=== PATIENT | female | born 1935 | race Caucasian/White ===

== ENCOUNTER → 2024-07-19 | Outpatient (CLI) | payer MEDICARE, BC, SELFPAY ==
[2024-07-19 13:51] LABS: Alanine Aminotransferase 15 U/L (10-49); Albumin, Serum 4.4 gm/dL (3.4-4.8); Albumin/Globulin Ratio 2.1 (1.2-2.2); Alkaline Phosphatase 123 U/L (46-116); Anion Gap 6 (7-16); Aspartate Amino Transferase 23 U/L (0-34); BUN/Creatinine Ratio 22 Ratio (12-20); Bilirubin,Total 0.7 mg/dL (0.3-1.2); Blood Urea Nitrogen 22 mg/dL (9-23); Calcium 10.2 mg/dL (8.3-10.6); Calcium (Corrected) 10.2 mg/dL (8.5-10.1); Carbon Dioxide 29.9 mMol/L (20.0-31.0); Cardiac Risk Estimate 2.5 RATIO (3.7-5.6); Chloride 101 mMol/L (98-107); Cholesterol 127 mg/dL (132-200); Globulin 2.1 gm/dL (2.3-3.5); Glucose 189 mg/dL (74-106); HDL Cholesterol 50 mg/dL (40-60); LDL Cholesterol,Calculated 58 mg/dL (0-130); Osmolality,Calculated 282 (275-295); Potassium 4.8 mMol/L (3.4-5.1); Sodium 137 mMol/L (136-145); Total Protein 6.5 gm/dL (5.7-8.2); Triglycerides 93 mg/dL (30-150); eGFR 54 See Note
[2024-07-19 14:21] LABS: Glucose Estimated Average 212 mg/dL (80-131)
== END | disposition home or self-care (01) ==
LOC: COPL 12:02
PROVIDERS: PCP Internal Medicine; Referring Provider Internal Medicine; Visit Provider Internal Medicine
DX: I10 Essential (primary) hypertension (principal); E11.65 Type 2 diabetes mellitus with hyperglycemia
CPT/HCPCS: 36415; 80053; 80061; 83036

== ENCOUNTER 2025-01-06 11:04 | Emergency (ER) | payer MEDICARE, SELFPAY ==
[2025-01-06] VITALS (11 sets, daily range): BP systolic 132–190; BP diastolic 81–129; PULSE 87–129; RESP 15–97; TEMP 36.7–38.1; O2SAT 70–100; BMI 21.3
--- NOTE | 2025-01-06 | XR_ITS ---
Examination: MRI of brain without intravenous contrast. MRI brain with intravenous contrast. Date and time of exam:January 06, 2025 1430 hours INDICATIONS: Onset altered mental status today Technique: Multiple axial and sagittal images of the brain to been obtained. Siemens high-resolution 1.52 Alicia short bore scanner utilized. Sagittal sections, T1 weighted images, TR 500, TE 14, are performed. Axial sections proton-density and T2-weighted images have been obtained. Inversion recovery axial images, TR 9260, TE 111, TR 2500. Diffusion weighted images, axial sections, TR 4800, TE 128, B value 1000. Axial sections, ADC map, TR 4800, TE 128. Axial and coronal images were also obtained post 10 cc gadolinium administered intravenously. Findings:: Enlargement of the sella turcica is not present. The optic chiasm and infundibular stalk are not remarkable. There is no localized enlargement of the medulla or ariel. Fourth ventricle and cerebellar tonsils appear normal in position. No subacute area of hemorrhage density is seen. Fourth ventricle is midline. Mass in the cerebellopontine angle region is not evident. 7th and 8th nerve complexes exhibit symmetry Globes are symmetrical Orbital musculature including medial lateral rectus muscles do not exhibit abnormality Increased white matter signal is present in the right frontal lobe, significant edema surrounding a right frontal convexity mass Effacement of the cortical sulcal markings is not identified. Mass effect upon the ventricular system is not identified. Diffusion-weighted images demonstrate no acute infarct Contrast images demonstrate 24 x 26 mm enhancing right frontal meningioma with surrounding edema and mass effect, depression of the anterior frontal horn on the right image 15 Impression: 24 x 26 mm enhancing right frontal convexity meningioma with significant edema and early mass effect
--- NOTE | 2025-01-06 11:21 | EKG_ITS ---
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
--- NOTE | 2025-01-06 11:30 | XR_ITS ---
Examination: CT brain head without contrast. 2-D sagittal coronal reconstructions Date and time of exam:January 06, 2025 1208 hours Comparison September 23, 2023 INDICATIONS: Onset altered mental status today CTDI: vol (mGy):48 DLP: (mGycm):941 Technique: Multiple CT axial sections of the brain have been obtained, 5 mm slice thickness. Contrast has not been administered. 2-D sagittal, coronal reconstructions have been obtained Low dose protocols were performed. One or more of the following dose reduction techniques were used; automated exposure control, adjustment of the mA and/or KV according to patient size, use of iterative reconstruction technique. Findings: Again noted right frontal mass with calcified rim, transverse dimension 27 mm compared to 26 mm on September 23, 2024 There is interval significant mass effect, with edema surrounding this calcified mass and depression of the right frontal horn on axial image 20 at least 7 mm Calcification in the occipital lobes and cerebellar hemispheres Mild ventricular enlargement No acute hemorrhage IMPRESSION: Right frontal lobe convexity mass consistent with meningioma, transverse dimension 27 mm compared to 26 mm September 23, 2024 There is significant edema now surrounding this mass with mass effect as above Recommend brain MRI MRA a tree post contrast follow-up
--- NOTE | 2025-01-06 11:31 | XR_ITS ---
Examination: AP chest single view TECHNIQUE: AP portable supine chest single view INDICATIONS: Sepsis protocol Exam date and time: January 06, 2025 1331 hours FINDINGS: Normal heart size CABG No lobar pneumonia No pulmonary edema IMPRESSION: No pneumonia identified
--- NOTE | 2025-01-06 11:32 | PD.EDAMS ---
Altered Mental Status RME/HPI General Chief Complaint: Altered Mental Status Stated Complaint: AMS Time Seen by Provider: 01/06/25 11:17 Arrival date/time: 01/06/25 11:04 RME / HPI RME / HPI narrative: 89-year-old female patient with significant history of CVA, diabetes mellitus, hypertension [facility] regarding altered mental status. Onset of symptoms about 45 minutes prior to ER visit patient was noted to be alert and oriented x 2. Patient normally is alert and oriented x 3. Patient is being treated for UTI for the last 3 days. On my initial evaluation patient denying any cough denies any chest pain denies any abdominal pain denies any complaints. According to EMS when they arrived in the facility patient was satting 88% on room air currently patient is satting 95% on room air. No medication was given prior to arrival. Patient is full code. Normally patient is GCS 15 currently patient is GCS of 13 Related Data Home Medications ?Medication ?Instructions ?Recorded ?Confirmed clopidogrel 75 mg tablet (Plavix) 75 mg PO QDAY #0 tabs 02/22/17 03/16/24 glyburide 5 mg tablet 10 mg PO BID ##0 02/22/17 03/16/24 saxagliptin 5 mg tablet (Onglyza) 5 mg PO QAM #0 tabs 02/22/17 03/16/24 dulaglutide 0.75 mg/0.5 mL 0.75 mg SQ QWEEK ##0 05/23/17 03/16/24 subcutaneous pen injector (Trulicity) amiloride 5 mg-hydrochlorothiazide 1 tab PO QDAY 05/15/19 03/16/24 50 mg tablet atorvastatin 20 mg tablet 20 mg PO HS 05/15/19 03/16/24 folic acid 400 mcg tablet 400 mcg PO QDAY 09/30/20 03/16/24 metoprolol tartrate 50 mg tablet 25 mg PO BID 10/02/20 03/16/24 tramadol 200 mg tablet,extended 200 - 400 mg PO QDAY PRN Pain 10/02/20 03/16/24 release 24 hr Allergies Allergy/AdvReac Type Severity Reaction Status Date / Time diclofenac Allergy Severe Rash Verified 03/16/24 15:31 promethazine Allergy Severe RASH Verified 03/16/24 15:31 Review of Systems Review of Systems Narrative Review of Systems: Review of system reviewed and within normal limits except mentioned in HPI ED Exam Narrative Physical exam: VITAL SIGNS: Reviewed. GENERAL APPEARANCE: Alert and oriented x 2, does not follows commands, no acute distress, HEAD AND FACE: Non-traumatic. ENT: PERRL, pink conjunctivitis, eyelid no trauma, Mucous membrane moist. NECK: Supple, nontender, no nuchal rigidity. CHEST: No tenderness, no crepitus, no paradoxical movement, no retractions. LUNGS: Clear, well ventilated, symmetric, no rales, no wheezing, no ronchi, no stridor, good breath sounds bilaterally. HEART: Regular rate, regular rhythm, no murmur, no gallops. ABDOMEN: Soft, positive bowel sounds, nondistended, no guarding, nontender, no rebound, no masses, RECTAL: Deferred. GENITAL: Deferred. NEUROLOGICAL: Gross motor function intact sensory function intact, Appropriate for age. MUSCULOSKELETAL: low back nontender, full range of motion. EXTREMITIES: Nontender, full range of motion. SKIN: Color pink, dry, no rash, no lacerations, no abrasions, no contusions. LYMPHATICS: Deferred. Course Quality Measures none Orders Category Date Time Status Bedside COVID-19 Antigen Test NOW Care 01/06/25 11:30 Completed Bedside Influenza A&B Antigen Test NOW Care 01/06/25 11:32 Completed Hvac Estimator STAT Care 01/06/25 11:30 Completed Continuous Pulse Oximetry STAT Care 01/06/25 11:30 Completed EKG (ED ONLY) *Do not use* NOW Care 01/06/25 11:21 Completed EKG (ED ONLY) *Do not use* NOW Care 01/06/25 11:30 Completed Pruett [Urinary Catheter] QS Care 01/06/25 11:51 Completed In and Out Catheter X1PRN Care 01/06/25 11:30 Completed Insert IV NOW Care 01/06/25 11:30 Completed MRI Screening NOW Care 01/06/25 13:14 Completed NPO STAT Care 01/06/25 11:30 Completed Strict Intake and Output Routine Care 01/06/25 11:30 Ordered Referral - Rod Drawer Stat Cons 01/06/25 16:[address] head/brain wo con Stat Exams 01/06/25 11:30 Completed EKG (ED Only) Stat Exams 01/06/25 11:21 Draft EKG (ED Only) Stat Exams 01/06/25 11:30 Ordered MR head/brain wo/w con Stat Exams 01/06/25 Completed XR chest 1V SEPSIS PROTOCOL Stat Exams 01/06/25 11:31 Completed Ammonia Stat Lab 01/06/25 12:08 Completed B-Type Natriuretic Peptide Stat Lab 01/06/25 12:08 Completed Blood Culture (Lab) Stat Lab 01/06/25 12:03 Received CBC Stat Lab 01/06/25 12:08 Completed Comprehensive Metabolic Panel Stat Lab 01/06/25 12:08 Completed LDH (Lactate Dehydrogenase) Stat Lab 01/06/25 12:08 Completed Lactate (Lactic Acid) Stat Lab 01/06/25 12:08 Completed Lipase Stat Lab 01/06/25 12:08 Completed Magnesium Stat Lab 01/06/25 12:08 Completed Partial Thromboplastin Time Stat Lab 01/06/25 13:10 Completed Phosphorous Stat Lab 01/06/25 12:08 Completed Procalcitonin Stat Lab 01/06/25 12:08 Completed Prothrombin Time with INR Stat Lab 01/06/25 13:10 Completed Troponin I Stat Lab 01/06/25 12:08 Completed Urinalysis Stat Lab 01/06/25 11:50 Completed Urine Culture Stat Lab 01/06/25 11:50 Received Dexamethasone Inj [Decadron Inj] Med 01/06/25 16:53 Discontinued 10 mg IV X1 ONE LORazepam [Ativan Inj] Med 01/06/25 14:11 Discontinued 2 mg IVP X1 ONE Labetalol IV [Trandate IV] Med 01/06/25 16:01 Discontinued 10 mg IVP X1 ONE Labetalol IV [Trandate IV] Med 01/06/25 18:07 Discontinued 10 mg IVP X1 ONE Magnesium Sulfate 1 gm Ivpb [Magnesium Sulfate Ivpb] Med 01/06/25 13:15 Discontinued 1 gm in 100 ml IV X1 POTASSIUM CHL 10 mEq IVPB [Kcl Ivpb] Med 01/06/25 13:15 Discontinued 10 meq in 100 ml IV X1 Ringers Lactated 1000 ml [Lactated Ringers] 1,000 ml Med 01/06/25 11:31 Discontinued IV 999 mls/hr cefTRIAXone/D5w 1gm IV premix [Rocephin/D5w 1gm IV Med 01/06/25 11:31 Discontinued premix] 1 gm in 50 ml IV X1 flumazeniL [Romazicon Inj] Med 01/06/25 21:02 Discontinued 0.2 mg IVP X1 ONE flumazeniL [Romazicon Inj] Med 01/06/25 21:21 Discontinued 0.2 mg IVP X1 ONE flumazeniL [Romazicon Inj] Med 01/06/25 21:53 Discontinued 0.2 mg IVP X1 ONE hydrALAZINE INJ [Apresoline Inj] Med 01/06/25 12:15 Discontinued 20 mg IV X1 ONE Oxygen Delivery NOW RT 01/06/25 11:30 Completed Vital Signs Vital signs: Vital Signs Temperature 98.8 F 01/06/25 11:08 Pulse Rate 88 01/06/25 11:08 Respiratory Rate 27 H 01/06/25 11:08 Blood Pressure 156/129 H 01/06/25 11:08 Pulse Oximetry (%) 100 01/06/25 11:08 Oxygen Delivery Method Room Air 01/06/25 11:08 Altered Mental Status MDM Narrative MDM Narrative:: 89-year-old female patient with significant history of CVA, diabetes mellitus, hypertension [facility] status. Onset of symptoms about 45 minutes prior to ER visit patient was noted to be alert and oriented x 2. Patient normally is alert and oriented x 3. Patient is being treated for UTI for the last 3 days. On my initial evaluation patient denying any cough denies any chest pain denies any abdominal pain denies any complaints. According to EMS when they arrived in the facility patient was satting 88% on room air currently patient is satting 95% on room air. No medication was given prior to arrival. Patient is full code Patient's workup today is significant for MRI finding of 24 x 26 mm enhancing right frontal convexity meningioma with significant edema and early mass effect Patient received IV fluids, labetalol IV, hydralazine IV, and depression IV Patient needs to be transfer to higher level of care where there is a neurosurgeon on-call 1640 I was able to talk to neurosurgeon from [facility] , who recommended [facility] for [facility] management of the meningioma. Spoke with transfer center from [facility], and ER MD Dr. Mendoza, who accepted the patient for transfer Prior to transfer patient is protecting her airway. Patient data External records reviewed:: None Clinical information provided by:: patient Social determinants that could affect healthcare access:: none Patient has the following chronic illnesses:: Hypertension diabetes mellitus history of CVA and meningioma How is presenting disease/condition affected by chronic disease/condition?: exacerbated by Evaluation data The following diagnostics were reviewed and interpreted by me:: lab results and radiology exam(s) Lab and/or radiology exams considered but not ordered:: None Interpretation Summary: Patient CBC showed slight leukocytosis of 11.8 potassium 3.1 magnesium 1.5 urinalysis*contaminated Medications / Prescriptions Medications or Prescriptions considered but not ordered:: None Medication administrations:: Medication Administration History Discontinued Medications Dexamethasone Sodium Phosphate (Dexamethasone Sod Phos Inj 10 Mg/Ml Vial) 10 mg IV X1 ONE Stop: 01/06/25 16:54 Last Admin: 01/06/25 17:14 Dose: 10 mg Documented By: BRANDON Flumazenil (Flumazenil Inj 0.1 Mg/Ml Vial 10 Ml) 0.2 mg IVP X1 ONE Stop: 01/06/25 21:03 Last Admin: 01/06/25 21:17 Dose: 0.2 mg Documented By: GIANLUCA Flumazenil (Flumazenil Inj 0.1 Mg/Ml Vial 10 Ml) 0.2 mg IVP X1 ONE Stop: 01/06/25 21:22 Last Admin: 01/06/25 21:24 Dose: 0.2 mg Documented By: GIANLUCA Flumazenil (Flumazenil Inj 0.1 Mg/Ml Vial 10 Ml) 0.2 mg IVP X1 ONE Stop: 01/06/25 21:54 Hydralazine HCl (Hydralazine Inj 20 Mg/Ml Vial) 20 mg IV X1 ONE Stop: 01/06/25 12:16 Last Admin: 01/06/25 12:37 Dose: 20 mg Documented By: ARCELIA Lactated Ringer's (Lactated Ringers) 1,000 mls @ 999 mls/hr IV .Q1H1M ONE Stop: 01/06/25 12:31 Last Infusion: 01/06/25 14:20 Dose: Infused Documented By: Admin: 01/06/25 13:13 Dose: 999 mls/hr Documented By: BRANDON Ceftriaxone Sodium/Dextrose (Rocephin/D5w 1gm Iv Premix) 1 gm in 50 mls @ 100 mls/hr IV X1 ONE Stop: 01/06/25 12:00 Last Infusion: 01/06/25 13:14 Dose: Infused Documented By: Admin: 01/06/25 12:40 Dose: 100 mls/hr Documented By: ARCELIA Magnesium Sulfate/Dextrose (Magnesium Sulfate Ivpb) 1 gm in 100 mls @ 100 mls/hr IV X1 ONE Stop: 01/06/25 14:14 Last Infusion: 01/06/25 17:17 Dose: Infused Documented By: Admin: 01/06/25 16:11 Dose: 100 mls/hr Documented By: CRISSY Potassium Chloride (Kcl Ivpb) 10 meq in 100 mls @ 100 mls/hr IV X1 ONE Stop: 01/06/25 14:14 Last Infusion: 01/06/25 20:30 Dose: Infused Documented By: Admin: 01/06/25 17:22 Dose: 100 mls/hr Documented By: BRANDON Labetalol HCl (Labetalol Inj 5 Mg/Ml Vial 20 Ml) 10 mg IVP X1 ONE Stop: 01/06/25 16:02 Last Admin: 01/06/25 16:06 Dose: 10 mg Documented By: CRISSY Labetalol HCl (Labetalol Inj 5 Mg/Ml Vial 20 Ml) 10 mg IVP X1 ONE Stop: 01/06/25 18:08 Last Admin: 01/06/25 18:11 Dose: 10 mg Documented By: CRISSY Lorazepam (Lorazepam 2 Mg/Ml Vial) 2 mg IVP X1 ONE Stop: 01/06/25 14:12 Last Admin: 01/06/25 14:28 Dose: 2 mg Documented By: BRANDON IV fluids, labetalol IV potassium replacement magnesium replacement lorazepam IV depression IV and hydralazine IV Consultations Consultation(s) initiated? (list below): No Diagnosis Differential diagnosis altered mental status: altered mental status and delirium Most likely diagnosis given after review of the tests above:: Altered mental status, meningioma with edema Admission Indicated Admission indicated?: indicated Admission Request Was there a request for admission?: No Disposition Plan Disposition Plan: Transfer Discharge Plan Plan Patient Disposition: Xfer Acute Care Fac Prescriptions/Referrals Prescriptions/Med Rec: No Action glyburide 5 MG tablet 10 mg PO BID Qty: 0 clopidogrel [Plavix] 75 MG tablet 75 mg PO QDAY Qty: 0 Onglyza 5 MG tablet 5 mg PO QAM Qty: 0 Trulicity 0.75 MG/0.5 ML pen injector 0.75 mg SQ QWEEK Qty: 0 amiloride-hydrochlorothiazide 5-50 mg Tablet 1 tab PO QDAY atorvastatin 20 mg Tablet 20 mg PO HS folic acid 400 mcg Tablet 400 mcg PO QDAY metoprolol tartrate 50 mg Tablet 25 mg PO BID Rx Instructions: half tab po bid. tramadol 200 mg Tablet Extended Release 24 Hr 200 - 400 mg PO QDAY PRN (Reason: Pain) Referrals: Torrie Fish MD [Primary Care Provider] - In 1 week Problem List Clinical Impression: Altered mental status, Meningioma Patient/Caregiver Discharge Instructions Print Language: Dominican Stand Alone Forms: Lainey Award Info., Patient Portal Info Letter
[2025-01-06 11:54] LABS: Collection Type, Urine Clean Catch
[2025-01-06 12:20] LABS: Lactate (Lactic Acid) 1.4 mMol/L (0.4-2.0)
[2025-01-06 12:25] LABS: Bacteria,Urine 4+; Bilirubin,Urine Negative (Negative); Blood,Urine Trace (Negative); Color,Urine Yellow (Lt Yel-Yel); Glucose, Urine 4+ (Negative); Hyaline Casts,Urine < 1 /hpf (0-1); Ketones,Urine Negative (Negative); Leukocyte Esterase,Urine Negative (Negative); Nitrite,Urine Negative (Negative); PH,Urine 6.5 (5.0-7.0); Protein,Urine 2+ (Neg - Trace); RBC,Urine 4 /hpf (0-3); Specific Gravity,Urine 1.014 (1.001-1.035); Squamous Epithelial Cell,Urine 13 /hpf (0-5); Urobilinogen,Urine Negative mg/dL (0.0-1.0); WBC,Urine 6 /hpf (0-5)
[2025-01-06 12:25] LABS: Basophils # (Auto) 0.1 Thou/mm3 (0.0-0.2); Basophils % (Auto) 1 % (0-2.5); Eosinophils # (Auto) 0.2 Thou/mm3 (0.0-0.5); Eosinophils % (Auto) 1 % (0-10); Hematocrit 44.4 % (36.0-46.0); Hemoglobin 15.1 g/dL (12.0-16.0); Immature Granulocytes % (Auto) 0 % (0-0); Immature Granulocytes Auto 0.05 Thou/mm3 (0.00-0.00); Lymphocytes # (Auto) 2.3 Thou/mm3 (1.0-4.8); Lymphocytes % (Auto) 19 % (10-50); Mean Corpuscular Hemoglobin 28.8 pg (25.0-35.0); Mean Corpuscular Volume 85 fL (80-100); Monocytes # (Auto) 1.3 Thou/mm3 (0.0-0.8); Monocytes % (Auto) 11 % (0-12); Neutrophils % (Auto) 68 % (37-80); Nucleated Red Blood Cell % 0 /100 WBC (0); Platelet Count 221 Thou/mm3 (140-440); RDW Standard Deviation 40.9 fL (36.4-46.3); Red Blood Count 5.25 Miln/mm3 (4.00-5.20); White Blood Count 11.8 Thou/mm3 (3.6-11.0)
[2025-01-06] MEDS: hydrALAZINE INJ 20 MG/ML VIAL IV (12:37)
[2025-01-06 12:40] LABS: Clarity,Urine Hazy (Clear/Hazy)
[2025-01-06] MEDS: cefTRIAXone/D5w 1gm IV premix 1 GM/50 ML BAG IV (12:40)
[2025-01-06 12:46] LABS: Ammonia 16 uMol/L (11-32); B-Type Natriuretic Peptide 201 pg/mL (0-100)
[2025-01-06 12:47] LABS: Troponin I < 0.020 ng/mL (0.0-0.045)
[2025-01-06 12:54] LABS: Anion Gap 7 (7-16); BUN/Creatinine Ratio 22 Ratio (12-20); Blood Urea Nitrogen 22 mg/dL (9-23); Carbon Dioxide 33.5 mMol/L (20.0-31.0); Chloride 97 mMol/L (98-107); Estimated Creatinine Clearance 31.5 mL/min (>60); Glucose 350 mg/dL (74-106); Potassium 3.1 mMol/L (3.4-5.1); Sodium 137 mMol/L (136-145); eGFR 54 See Note
[2025-01-06 12:55] LABS: Alanine Aminotransferase 15 U/L (10-49); Albumin, Serum 4.2 gm/dL (3.4-4.8); Albumin/Globulin Ratio 1.7 (1.2-2.2); Alkaline Phosphatase 151 U/L (46-116); Aspartate Amino Transferase 20 U/L (0-34); Bilirubin,Total 0.5 mg/dL (0.3-1.2); Calcium 9.6 mg/dL (8.3-10.6); Calcium (Corrected) 9.6 mg/dL (8.5-10.1); Globulin 2.5 gm/dL (2.3-3.5); LDH (Lactate Dehydrogenase) 208 U/L (120-246); Lipase 38 U/L (12-53); Magnesium 1.5 mg/dL (1.6-2.6); Osmolality,Calculated 291 (275-295); Phosphorous 3.3 mg/dL (2.4-5.1); Procalcitonin 0.05 ng/ml (0.0-0.49); Total Protein 6.7 gm/dL (5.7-8.2)
[2025-01-06] MEDS: RINGERS LACTATED 1000 ML 1,000 ML 999 ML IV (13:13)
[2025-01-06 13:52] LABS: Partial Thromboplastin Time 24.5 Seconds (22.0-36.0); Prothrombin Time 10.9 Seconds (9.0-12.2)
--- NOTE | 2025-01-06 14:11 | PC.NURSE ---
Received verbal order from provider for 2mg Ativan IV for MRI
[2025-01-06] MEDS: LORazepam 2 MG/ML VIAL IVP (14:28)
[2025-01-06] MEDS: LABETALOL INJ 5 MG/ML VIAL 20 ML 10 MG IVP ×2 (16:06→18:11)
[2025-01-06] MEDS: Magnesium Sulfate 1 gm Ivpb 1 GM/100 ML BAG IV (16:11)
--- NOTE | 2025-01-06 16:32 | PC.CM ---
Addendum entered by Columba Hernandez RN 01/06/25 18:56: I took transfer packet with CD to ED charge nurse and gave report. [facility]ilynn declined and [facility] is still reviewing. Addendum entered by Columba Hernandez RN 01/06/25 18:19: 1620 I called and spoke to Krissy at [facility] and she states they are waiting to her from neurology. 1550 I spoke to [facility] and he stats [facility] declined patient stating she needs higher level of care. He stated he did speak to to [facility] transfer nurse and they discussed patient. Transfer nurse told him she would present to their neuro team. Addendum entered by Columba Hernandez RN 01/06/25 17:06: 1645 Saealondra transfer nurse called wanting to speak to NAINA. I forwarded the call to Audrey CHEW. 1630 I received a call back from [facility] and they wanted to speak to Audrey CHEW. I forwarded the call. Original Note: 1606 I received a referral for stat transfer neurology. Audrey CHEW states patient needs neurology. I contacted [facility] and Marilynn and I faxed over information. I will start packet and make a CD.
--- NOTE | 2025-01-06 16:53 | PC.CC ---
Pricilla with [facility] made contact with ASW as this patient is a resident of [facility] and wanted an update. ASW informed her that the patient is pending transfer.
[2025-01-06] MEDS: DEXAMETHASONE SOD PHOS INJ 10 MG/ML VIAL IV (17:14)
[2025-01-06] MEDS: POTASSIUM CHL 10 mEq IVPB 10 MEQ/100 ML BAG 100 MEQ IV (17:22)
--- NOTE | 2025-01-06 20:05 | PC.NURSE ---
Martha CONTACTED RAYMOND VÁSQUEZ AT THIS TIME. [facility] RETURNED CALL FOR MORE CLINICALS FROM MASSIMO CORTEZ AT THIS TIME.
[2025-01-06] MEDS: FLUMAZENIL INJ 0.1 MG/ML VIAL 10 ML 0.2 MG IVP ×2 (21:17→21:24)
--- NOTE | 2025-01-06 21:25 | PC.NURSE ---
pt sleeping apon my arival. Pt was given ativan earlier around 1600. pt has been asleep since. Apon my evaluation, pt around 2109. pt found to be unresponsive to painful stimuli. ED provider informed. Flumazenil ordered and given . pt did respnd to painful stimuli by moaning and grimacing. Provider aware. pt aloud to sleep.
--- NOTE | 2025-01-06 21:35 | PC.NURSE ---
Evaluated pt at around 2057. pt found to be unresponsive to painful stimuli. Provider aware and reversal agent given. .
--- NOTE | 2025-01-06 21:39 | PC.NURSE ---
PT ACCEPTED TO [facility] BY DR BERG. REPORT TO [phone].
--- NOTE | 2025-01-06 22:19 | PC.NURSE ---
after 3rd dose of flumazenil, Dr Daniel evaluated pt . Pt was responsive by startaling and opening eyes when MD spoke loudly to her. Report called to JUAREZ Napoles . Report given to EMS. Pt is being loaded now for transport.
== END 2025-01-06 22:25 | disposition short-term general hospital (02) ==
PROVIDERS: Nurse Practitioner Family; Emergency Provider Emergency Medicine; PCP Internal Medicine
DX: D32.9 Benign neoplasm of meninges, unspecified (principal); Z86.73 Personal history of transient ischemic attack (TIA), and cerebral infarction without residual deficits; E11.9 Type 2 diabetes mellitus without complications; I10 Essential (primary) hypertension; N39.0 Urinary tract infection, site not specified
CPT/HCPCS: 51702; 36415; 70450; 70553; 71045; 80053; 81001; 82140; 83605; 83615; 83690; 83735; 83880; 84100; 84145; 84484; 85025; 85610; 85730; 87040; 87077; 87086; 87186; 87400; 87811; 93005; 96365; 96366; 96367; 96375; 96376; 99285; A9579; J0360; J0696; J1100; J2060; J3475; J3480; J3490; J7120; J1920

== ENCOUNTER 2025-02-07 11:37 | Inpatient (IN) | payer MEDICARE, BC, SELFPAY ==
[2025-02-07] VITALS (9 sets, daily range): BP systolic 158–213; BP diastolic 76–97; PULSE 81–97; RESP 18–97; TEMP 36.8–38.8; O2SAT 94–100; BMI 27.4
--- NOTE | 2025-02-07 11:39 | EKG_ITS ---
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1935 Requested By: ED Temporary Provider Order Number: [id number] Reading MD: ED Temporary Provider Measurements Intervals [place] Rate: 92 P: 66 WA: 198 QRS: -65 QRSD: 118 T: 75 QT: 357 QTc: 444 Interpretive Statements SINUS RHYTHM LEFT AXIS DEVIATION [QRS AXIS < -30] PATTERN CONSISTENT WITH PULMONARY DISEASE LEFT VENTRICULAR HYPERTROPHY AND ST-T CHANGE [VOLTAGE CRITERIA PLUS ST/T ABNORMALITY] POSSIBLE SEPTAL MYOCARDIAL INFARCTION , OF INDETERMINATE AGE [30 ms Q WAVE IN V1/V2] Compared to ECG 01/06/2025 11:22:29 ST (T wave) deviation now present Myocardial infarct finding now present Intraventricular conduction delay no longer present /store/S0/[id number]/[id number]
--- NOTE | 2025-02-07 11:52 | XR_ITS ---
Examination: AP chest single view Technique one AP portable semiupright chest single view Date and time: [place] 04/03/2025 1205 hours Comparison January 06, 2025 INDICATIONS: Sepsis alert today FINDINGS: Normal heart size. CABG. No pneumonia or pulmonary edema Moderate osteopenia IMPRESSION: No pneumonia identified
--- NOTE | 2025-02-07 11:54 | PD.EDADULT ---
ED General RME/HPI General Chief complaint: Altered Mental Status Stated complaint: AMS Time Seen by Provider: 02/07/25 11:51 Arrival date/time: 02/07/25 11:37 CC: Altered mental status HPI patient presents to the ER via EMS who state that in the care facility the patient was reportedly seen last normal at approximately 9 PM last night by family member, EMS report the facility staff stating the patient was altered as early as 6 AM but finally called at approximately 11 AM for transport. 2 daughters have a give me detailed history. The patient was recently discharged from hospital in [place] after an extended stay related to cerebral edema and possible brainstem stroke however she made a complete recovery. Patient is baseline nonambulatory secondary to a fall resulting in a hip fracture in September of this year. Patient is on antiseizure medication secondary to brain swelling. Both daughters state that the patient was completely normal at 8 PM last night which includes conversation and a baseline with no slurred speech mixed words or altered responses to questions. Related Data Home Medications ?Medication ?Instructions ?Recorded ?Confirmed clopidogrel 75 mg tablet (Plavix) 75 mg PO QDAY #0 tabs 02/22/17 03/16/24 glyburide 5 mg tablet 10 mg PO BID ##0 02/22/17 03/16/24 saxagliptin 5 mg tablet (Onglyza) 5 mg PO QAM #0 tabs 02/22/17 03/16/24 dulaglutide 0.75 mg/0.5 mL 0.75 mg SQ QWEEK ##0 05/23/17 03/16/24 subcutaneous pen injector (Trulicity) amiloride 5 mg-hydrochlorothiazide 1 tab PO QDAY 05/15/19 03/16/24 50 mg tablet atorvastatin 20 mg tablet 20 mg PO HS 05/15/19 03/16/24 folic acid 400 mcg tablet 400 mcg PO QDAY 09/30/20 03/16/24 metoprolol tartrate 50 mg tablet 25 mg PO BID 10/02/20 03/16/24 tramadol 200 mg tablet,extended 200 - 400 mg PO QDAY PRN Pain 10/02/20 03/16/24 release 24 hr Allergies Allergy/AdvReac Type Severity Reaction Status Date / Time diclofenac Allergy Severe Rash Verified 03/16/24 15:31 promethazine Allergy Severe RASH Verified 03/16/24 15:31 Review of Systems Review of Systems ROS Unobtainable: unobtainable due to mental status Past Medical History Past Medical History NEUROLOGIC: 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, mini strokes); Negative Neurological Disorders CARDIAC: Positive Cardiac Disorders, Hypercholesterolemia and Hypertension; Negative Congestive Heart Failure RESPIRATORY: Negative Chronic Obstructive Pulmonary Disease (COPD) or Asthma GASTROINTESTINAL: Negative Gastrointestinal Disorders GENITOURINARY: Negative Genitourinary Disorders or Renal Disease REPRODUCTIVE: Negative Pelvic Inflammatory Disease MUSCULOSKELETAL: Negative Musculoskeletal Disorders ENDOCRINE: Positive Diabetes Mellitus Type 2; Negative Endocrine Disorders or Diabetes Mellitus Type 1 HEMATOLOGIC: Negative Sickle Cell Disease OTHER HISTORY: Negative Autoimmune Disease, Anesthesia Reactions, Organ Transplant, MRSA, Clostridium Difficile or Cancer Family History FAMILY HISTORY: Negative Family Cardiac Disorders Surgical History SURGICAL: Positive Coronary Artery Bypass Graft (triple bypass); Negative Endocrine Surgery, Ear Surgery, Abdominal Surgery, Nephrectomy, Joint Replacement, Neurologic Surgery, Mastectomy, Vasectomy or Organ Transplant Social History SMOKING STATUS: Unknown if ever smoked ED Exam Narrative Physical exam: [General: Appears not in any acute distress Head normocephalic HEENT: Eyes opening the lids pupils are PERRLA patient is minimally tracking to noxious stimuli and sound. Mouth is dry no swallow or sounds appreciated. Neck is supple nontender no JVD no edema Chest equal chest rise nontender to palpation Respiratory: Clear to auscultation no wheezes crackles or rubs CV: Rate rhythm is regular no murmurs rubs or clicks Abdomen is flat soft nontender no masses positive bowel sounds all 4 quadrants Back: No gross abnormalities with palpation of the back including the spine, no rashes induration ulceration decubiti Skin: Intact no petechiae rash induration ulceration or crepitus Extremities: Reported nonambulatory, legs deconditioned cap refill less than 2 seconds arms no motion without noxious stimuli and then minimal localization Neuro: Maintaining airway. Course Course Course Narrative: At 1700 and lengthy discussion with daughters at bedside who are adamant that the patient is to remain full code. The patient has had no change in neurologic status, fever continues to decrease. The patient is neurologically unchanged Pruett catheter is draining fluids. Patient's case discussed with Dr. Garcia after administering Decadron. He is in agreement the patient to be transferred for neurologic services back to [facility]. At 1830, patient is unchanged remains obtunded but maintaining her own airway and stable blood pressure. Patient was declined by [facility] secondary to capacity. Now looking for other neuro surgical services. Daughters at bedside were informed. Will repeat labs 1914: It nursing informing the patient is having a mildly brighter affect she is awake and now tracking with her eyes and answering simple questions with appropriate answers. Again had a lengthy discussion with the daughters at bedside who state they want to continue with the neurosurgical transfer. They are not considering a DNR DNI. 1914, CBC shows no significant change no leukocytosis anemia or thrombocytopenia. At 2134 patient's case clinical presentation laboratory results and imaging discussed with Dr. Lopez, neurologist, who agrees to consult on the patient for the altered mental status, she is requesting the patient be admitted for UTI treatment and she will follow for the altered mental status portion of this. Patient's case discussed at [address] Addison, resident for Dr. Cortes Hurd's who agrees to accept the patient for admission. Patient's daughter was notified Dr. Addison assessed the patient and determined the patient may have some left-sided deficits, is requesting a CTA angio before admission. Orders Category Date Time Status Bedside COVID-19 Antigen Test NOW Care 02/07/25 11:51 Active Bedside Influenza A&B Antigen Test NOW Care 02/07/25 11:51 Completed Mill Controller STAT Care 02/07/25 11:51 Active Continuous Pulse Oximetry STAT Care 02/07/25 11:51 Completed EKG (ED ONLY) *Do not use* NOW Care 02/07/25 11:39 Completed Pruett [Urinary Catheter] QS Care 02/07/25 11:40 Active Pruett [Urinary Catheter] QS Care 02/07/25 18:32 Completed Glucose [Bedside Blood Glucose] NOW Care 02/07/25 17:14 Active Insert IV NOW Care 02/07/25 11:51 Completed NPO STAT Care 02/07/25 11:51 Active Strict Intake and Output Routine Care 02/07/25 11:51 Ordered Consult to Neurology / Tele-Neurology Stat Cons 02/07/25 21:34 Active Referral - Roller Stat Cons 02/07/25 15:[address] head/brain wo con Stat Exams 02/07/25 12:07 Completed EKG (ED Only) Stat Exams 02/07/25 11:39 Draft XR chest 1V Stat Exams 02/07/25 11:52 Completed B-Type Natriuretic Peptide Stat Lab 02/07/25 13:15 Completed Blood Culture (Lab) Stat Lab 02/07/25 12:05 Received CBC Stat Lab 02/07/25 13:15 Completed CBC Stat Lab 02/07/25 18:48 Completed CMP [Comprehensive Metabolic Panel] Stat Lab 02/07/25 18:48 Completed Comprehensive Metabolic Panel Stat Lab 02/07/25 13:15 Completed LDH (Lactate Dehydrogenase) Stat Lab 02/07/25 13:15 Completed Lactate (Lactic Acid) Stat Lab 02/07/25 13:15 Completed Lipase Stat Lab 02/07/25 13:15 Completed Magnesium Stat Lab 02/07/25 13:15 Completed Partial Thromboplastin Time Stat Lab 02/07/25 13:15 Completed Phosphorous Stat Lab 02/07/25 13:15 Completed Procalcitonin Stat Lab 02/07/25 13:15 Completed Prothrombin Time with INR Stat Lab 02/07/25 13:15 Completed Troponin I Stat Lab 02/07/25 13:15 Completed Urinalysis Stat Lab 02/07/25 11:59 Completed Urine Culture Stat Lab 02/07/25 11:59 Received Acetaminophen Ivpb [Ofirmev Inj] Med 02/07/25 11:52 Discontinued 1,000 mg in 100 ml IV X1 Dexamethasone Inj [Decadron Inj] Med 02/07/25 15:50 Discontinued 10 mg IV X1 ONE Insulin Regular Med 02/07/25 14:35 Discontinued 5 unit SC X1 ONE Losartan [Cozaar] Med 02/07/25 18:37 Discontinued 25 mg PO X1 ONE Magnesium Sulfate 2 GM Ivpb [Magnesium Sulfate Ivpb] Med 02/07/25 14:34 Discontinued 2 gm in 50 ml IV X1 Ringers Lactated 1000 ml [Lactated Ringers] 1,000 ml Med 02/07/25 11:53 Discontinued IV 999 mls/hr Sodium Chloride 0.9% 1000 ml [Ns] 1,000 ml Med 02/07/25 17:10 Active IV 80 mls/hr cefTRIAXone/D5w 1gm IV premix [Rocephin/D5w 1gm IV Med 02/07/25 13:14 Discontinued premix] 1 gm in 50 ml IV X1 cloNIDine HCL [Catapres] Med 02/07/25 18:37 Discontinued 0.2 mg PO X1 ONE Oxygen Delivery NOW RT 02/07/25 11:51 Active Vital Signs Vital signs: Vital Signs Temperature 102 F H 02/07/25 11:47 Pulse Rate 93 02/07/25 11:47 Respiratory Rate 25 H 02/07/25 11:47 Blood Pressure 213/97 H 02/07/25 11:47 Pulse Oximetry (%) 96 02/07/25 11:47 Oxygen Delivery Method Room Air 02/07/25 11:47 Discharge Plan Prescriptions/Referrals Prescriptions/Med Rec: No Action glyburide 5 MG tablet 10 mg PO BID Qty: 0 clopidogrel [Plavix] 75 MG tablet 75 mg PO QDAY Qty: 0 Onglyza 5 MG tablet 5 mg PO QAM Qty: 0 Trulicity 0.75 MG/0.5 ML pen injector 0.75 mg SQ QWEEK Qty: 0 amiloride-hydrochlorothiazide 5-50 mg Tablet 1 tab PO QDAY atorvastatin 20 mg Tablet 20 mg PO HS folic acid 400 mcg Tablet 400 mcg PO QDAY metoprolol tartrate 50 mg Tablet 25 mg PO BID Rx Instructions: half tab po bid. tramadol 200 mg Tablet Extended Release 24 Hr 200 - 400 mg PO QDAY PRN (Reason: Pain) Referrals: Dionisio Francisco MD [Primary Care Provider] - In 1 week Patient/Caregiver Discharge Instructions Print Language: Georgian MDM Lab Interpretation Lab(s) interpretation(s): CBC shows no leukocytosis no anemia or thrombocytopenia Coags within acceptable ins Sodium 131 potassium 3.4 chloride of 94 CO2 26.2 gap of 11 BUN of 11 creatinine of 0.6 glucose of 338 Lactic of 1.7 Mag of 1.3 Alk phos of 151 no other transaminitis T. bili at 0.5. BNP at 395 Troponin at less than 0.020 Lipase is 29 Procalcitonin at 0.10. Urine is turbid 2+ protein 4+ glucose 1+ blood 43 RBCs 1507 WBC 66 squamous epithelia 4+ bacteria. Imaging Provider imaging interpretation(s): CT of the head shows the patient has a right frontal soft tissue tumor mass that is calcified with a dimension of 27 cm. There is also additional mass effect depressing the right frontal horn currently at 10 mm compared to 7 mm in January 07, 2025. Radiology reports / interpretation(s): Lab results show that is a UTI but no other acute finding that would suggest a cause for the obtunded condition of the patient at this time. I suspect this is all pointing to this mass effect of this hemangioma. A lengthy discussion with the daughters at bedside who are adamant this patient remain a full code. At this time they have decided to have this patient transferred back to [facility]. Reexamined of the patient at 1550 p.m., the patient remains obtunded. Medication Administration(s) Medication Administration History Sodium Chloride (Ns) 1,000 mls @ 80 mls/hr IV .[id number] ORALIA Stop: 03/09/25 17:09 Last Admin: 02/07/25 17:19 Dose: 80 mls/hr Documented By: KENTON Discontinued Medications Clonidine (Clonidine Hcl 0.1 Mg Tablet) 0.2 mg PO X1 ONE Stop: 02/07/25 18:38 Last Admin: 02/07/25 18:43 Dose: Not Given Documented By: TRENT Non-Admin Reason: Cancelled by Provider Dexamethasone Sodium Phosphate (Dexamethasone Sod Phos Inj 10 Mg/Ml Vial) 10 mg IV X1 ONE Stop: 02/07/25 15:51 Last Admin: 02/07/25 15:54 Dose: 10 mg Documented By: KENTON Acetaminophen (Ofirmev Inj) 1,000 mg in 100 mls @ 250 mls/hr IV X1 ONE Stop: 02/07/25 12:15 Last Infusion: 02/07/25 13:20 Dose: Infused Documented By: Admin: 02/07/25 11:58 Dose: 250 mls/hr Documented By: KENTON Lactated Ringer's (Lactated Ringers) 1,000 mls @ 999 mls/hr IV .Q1H1M ONE Stop: 02/07/25 12:53 Last Infusion: 02/07/25 13:32 Dose: Infused Documented By: Admin: 02/07/25 12:00 Dose: 999 mls/hr Documented By: KENTON Ceftriaxone Sodium/Dextrose (Rocephin/D5w 1gm Iv Premix) 1 gm in 50 mls @ 100 mls/hr IV X1 ONE Stop: 02/07/25 13:43 Last Infusion: 02/07/25 14:08 Dose: Infused Documented By: Admin: 02/07/25 13:25 Dose: 100 mls/hr Documented By: TRENT Magnesium Sulfate (Magnesium Sulfate Ivpb) 2 gm in 50 mls @ 25 mls/hr IV X1 ONE Stop: 02/07/25 16:33 Last Infusion: 02/07/25 16:53 Dose: Infused Documented By: Admin: 02/07/25 14:48 Dose: 25 mls/hr Documented By: KENTON Insulin Human Regular (Insulin Hum Regular 1 Unit/0.01 Ml (Per Unit)) 5 unit SC X1 ONE Stop: 02/07/25 14:36 Last Admin: 02/07/25 14:55 Dose: 5 unit Documented By: KENTON Co-signed By: ER Losartan Potassium (Losartan Potassium 25 Mg Tablet) 25 mg PO X1 ONE Stop: 02/07/25 18:38 Last Admin: 02/07/25 18:43 Dose: Not Given Documented By: TRENT Non-Admin Reason: Cancelled by Provider
[2025-02-07] MEDS: ACETAMINOPHEN IVPB 1,000 MG/100 ML VIAL 250 MG IV (11:58)
[2025-02-07] MEDS: RINGERS LACTATED 1000 ML 1,000 ML 999 ML IV (12:00)
[2025-02-07 12:02] LABS: Collection Type, Urine Clean Catch
--- NOTE | 2025-02-07 12:07 | XR_ITS ---
Examination: CT brain head without contrast. 2-D sagittal coronal reconstructions Date and time of exam:February 07, 2025 at 1246 hours Comparison January 06, 2025 INDICATIONS: Onset altered mental status today CTDI: vol (mGy):55.8 DLP: (mGycm):1102 Technique: Multiple CT axial sections of the brain have been obtained, 5 mm slice thickness. Contrast has not been administered. 2-D sagittal, coronal reconstructions have been obtained Low dose protocols were performed. One or more of the following dose reduction techniques were used; automated exposure control, adjustment of the mA and/or KV according to patient size, use of iterative reconstruction technique. Findings: Again noted right frontal soft tissue tumor mass with calcified rim, transverse dimension of this mass 27 mm Frontal edema is again depicted with additional mass effect depressing the frontal horn, currently 10 mm compared to 7 mm on January 06, 2025 No acute hemorrhage Calcifications in both occipital lobes Ventricles are nonenlarged IMPRESSION: Again noted right frontal soft tissue tumor mass with calcified rim, transverse dimension 27 mm Frontal edema is again depicted with additional mass effect depressing the right frontal horn, currently 10 mm compared to 7 mm on January 07, 2025
[2025-02-07 12:49] LABS: Bacteria,Urine 4+; Bilirubin,Urine Negative (Negative); Blood,Urine 1+ (Negative); Color,Urine Yellow (Lt Yel-Yel); Glucose, Urine 4+ (Negative); Ketones,Urine Negative (Negative); Leukocyte Esterase,Urine Positive (Negative); Nitrite,Urine Negative (Negative); PH,Urine 7.5 (5.0-7.0); Protein,Urine 2+ (Neg - Trace); RBC,Urine 43 /hpf (0-3); Specific Gravity,Urine 1.015 (1.001-1.035); Squamous Epithelial Cell,Urine 66 /hpf (0-5); Urobilinogen,Urine Negative mg/dL (0.0-1.0); WBC,Urine 1507 /hpf (0-5)
[2025-02-07 12:50] LABS: Clarity,Urine Turbid (Clear/Hazy)
[2025-02-07 13:22] LABS: Lactate (Lactic Acid) 1.7 mMol/L (0.4-2.0)
[2025-02-07] MEDS: cefTRIAXone/D5w 1gm IV premix 1 GM/50 ML BAG IV (13:25)
[2025-02-07 13:27] LABS: Basophils % (Auto) 1 % (0-2.5); Eosinophils % (Auto) 0 % (0-10); Immature Granulocytes % (Auto) 1 % (0-0); Immature Granulocytes Auto 0.05 Thou/mm3 (0.00-0.00); Lymphocytes % (Auto) 17 % (10-50); Mean Corpuscular HGB Conc 34.3 g/dl (31.0-37.0); Mean Corpuscular Hemoglobin 28.2 pg (25.0-35.0); Mean Corpuscular Volume 82 fL (80-100); Monocytes # (Auto) 0.5 Thou/mm3 (0.0-0.8); Monocytes % (Auto) 8 % (0-12); Neutrophils # (Auto) 4.5 Thou/mm3 (1.8-7.7); Neutrophils % (Auto) 74 % (37-80); Nucleated Red Blood Cell % 0 /100 WBC (0); Platelet Count 285 Thou/mm3 (140-440); RDW Standard Deviation 44.3 fL (36.4-46.3); Red Blood Count 4.25 Miln/mm3 (4.00-5.20)
[2025-02-07 13:42] LABS: INR 1.1 (0.9-1.3); Partial Thromboplastin Time 24.8 Seconds (22.0-36.0); Prothrombin Time 11.7 Seconds (9.0-12.2)
[2025-02-07 13:43] LABS: B-Type Natriuretic Peptide 395 pg/mL (0-100)
[2025-02-07 13:52] LABS: Alanine Aminotransferase 13 U/L (10-49); Albumin, Serum 3.6 gm/dL (3.4-4.8); Albumin/Globulin Ratio 1.5 (1.2-2.2); Alkaline Phosphatase 151 U/L (46-116); Anion Gap 11 (7-16); Aspartate Amino Transferase 17 U/L (0-34); BUN/Creatinine Ratio 18 Ratio (12-20); Bilirubin,Total 0.5 mg/dL (0.3-1.2); Blood Urea Nitrogen 11 mg/dL (9-23); Calcium 9.5 mg/dL (8.3-10.6); Calcium (Corrected) 9.8 mg/dL (8.5-10.1); Carbon Dioxide 26.2 mMol/L (20.0-31.0); Chloride 94 mMol/L (98-107); Creatinine (Component) 0.6 mg/dL (0.6-1.3); Estimated Creatinine Clearance 57.5 mL/min (>60); Globulin 2.4 gm/dL (2.3-3.5); Glucose 338 mg/dL (74-106); Lipase 29 U/L (12-53); Magnesium 1.3 mg/dL (1.6-2.6); Osmolality,Calculated 275 (275-295); Phosphorous 2.6 mg/dL (2.4-5.1); Potassium 3.4 mMol/L (3.4-5.1); Sodium 131 mMol/L (136-145); Troponin I < 0.020 ng/mL (0.0-0.045); eGFR > 60 See Note
[2025-02-07 14:03] LABS: LDH (Lactate Dehydrogenase) 265 U/L (120-246)
[2025-02-07] MEDS: Magnesium Sulfate 2 GM Ivpb 2 GM/50 ML BAG IV (14:48)
[2025-02-07] MEDS: INSULIN HUM REGULAR 1 UNIT/0.01 ML (PER UNIT) 5 UNIT SC (14:55)
[2025-02-07] MEDS: DEXAMETHASONE SOD PHOS INJ 10 MG/ML VIAL IV (15:54)
--- NOTE | 2025-02-07 16:22 | PC.CC ---
1549- Received call from NAINA Webb from ER requesting transfer to [facility] for neurology services per family's request. Patient was recently discharged from [facility]. Call to [facility], spoke with Desirae, transfer center coordinator and provided clinical information. She will present to the transfer center team. Transfer packet created and imaging disc created.
--- NOTE | 2025-02-07 16:39 | PC.NURSE ---
[facility] GALILEO PINTO RN CALLED ASKING FOR AN UPDATE ON PT
[2025-02-07] MEDS: SODIUM CHLORIDE 0.9% 1000 ML 1,000 ML 80 ML IV (17:19)
[2025-02-07 18:56] LABS: Basophils % (Auto) 1 % (0-2.5); Eosinophils % (Auto) 0 % (0-10); Hematocrit 39.4 % (36.0-46.0); Hemoglobin 13.6 g/dL (12.0-16.0); Immature Granulocytes % (Auto) 1 % (0-0); Immature Granulocytes Auto 0.04 Thou/mm3 (0.00-0.00); Lymphocytes # (Auto) 0.9 Thou/mm3 (1.0-4.8); Lymphocytes % (Auto) 18 % (10-50); Mean Corpuscular HGB Conc 34.5 g/dl (31.0-37.0); Mean Corpuscular Hemoglobin 28.1 pg (25.0-35.0); Mean Corpuscular Volume 81 fL (80-100); Monocytes # (Auto) 0.1 Thou/mm3 (0.0-0.8); Monocytes % (Auto) 3 % (0-12); Neutrophils # (Auto) 4.1 Thou/mm3 (1.8-7.7); Neutrophils % (Auto) 78 % (37-80); Nucleated Red Blood Cell % 0 /100 WBC (0); Platelet Count 294 Thou/mm3 (140-440); RDW Standard Deviation 43.7 fL (36.4-46.3); Red Blood Count 4.84 Miln/mm3 (4.00-5.20); White Blood Count 5.2 Thou/mm3 (3.6-11.0)
--- NOTE | 2025-02-07 19:05 | PC.NURSE ---
FELICIA ELDRIDGE @ [phone] AND KUNAL @ [phone] PLEASE CALL WHEN AN ACCEPTING FACILITY IS FOUND.
[2025-02-07 19:17] LABS: Alanine Aminotransferase 13 U/L (10-49); Albumin, Serum 4.1 gm/dL (3.4-4.8); Albumin/Globulin Ratio 1.6 (1.2-2.2); Alkaline Phosphatase 157 U/L (46-116); Anion Gap 11 (7-16); Aspartate Amino Transferase 17 U/L (0-34); BUN/Creatinine Ratio 13 Ratio (12-20); Bilirubin,Total 0.4 mg/dL (0.3-1.2); Blood Urea Nitrogen 9 mg/dL (9-23); Calcium 9.9 mg/dL (8.3-10.6); Calcium (Corrected) 9.9 mg/dL (8.5-10.1); Carbon Dioxide 28.2 mMol/L (20.0-31.0); Chloride 94 mMol/L (98-107); Creatinine (Component) 0.7 mg/dL (0.6-1.3); Estimated Creatinine Clearance 49.3 mL/min (>60); Globulin 2.5 gm/dL (2.3-3.5); Glucose 268 mg/dL (74-106); Osmolality,Calculated 274 (275-295); Potassium 3.5 mMol/L (3.4-5.1); Sodium 133 mMol/L (136-145); Total Protein 6.6 gm/dL (5.7-8.2); eGFR > 60 See Note
--- NOTE | 2025-02-07 21:59 | XR_ITS ---
Examination: CTA carotids with intravenous contrast CTA brain, head with intravenous contrast. 2-D sagittal, coronal reconstructions. 3-D reconstructions. Exam date and time: February 08, 2025 0037 hours INDICATIONS: Onset altered mental status left-sided body weakness beginning yesterday CTDI: vol (mGy) 11 DLP: (mGycm) 400 Technique: Multiple CTA axial brain, head carotid images post intravenous contrast injection 75 cc, [id number]. 2-D sagittal, coronal reconstructions. 3-D reconstructions, 3-D post processing including vascular maximum intensity projection images. Low dose protocols were performed. One or more of the following dose reduction techniques were used; automated exposure control, adjustment of the mA and/or KV according to patient size, use of iterative reconstruction technique. Findings: No significant common carotid carotid bifurcation or internal carotid artery stenoses Mildly dominant right vertebral artery with no critical stenoses No cerebral large vessel arterial occlusions or thrombus 25 mm enhancing right convexity frontal mass noted, please see the CT brain scan report yesterday IMPRESSION: No significant neck arterial stenoses No cerebral large vessel arterial occlusions, thrombus. Enhancing right frontal convexity mass most consistent with meningioma
[2025-02-08] VITALS (77 sets, daily range): BP systolic 100–212; BP diastolic 56–134; PULSE 52–132; RESP 14–96; TEMP 36.4–37.6; O2SAT 92–100
--- NOTE | 2025-02-08 | XR_ITS ---
Examinations: MRI Brain without intravenous contrast. MRA brain without intravenous contrast. MRA carotids without intravenous contrast 3-D vascular reconstructions Date and time of exam: February 08, 2025 1025 hours INDICATIONS: Altered mental status beginning 6:00 AM this morning Technique: Multiple axial and sagittal images of the brain have been obtained MRA brain carotid images without contrast obtained, including 3-D postprocessing, vascular maximum intensity projection images Findings: Sellaturcica is not enlarged. The optic chiasm and infundibular stalk are not remarkable. Prepontine and interpeduncular cisterns are not enlarged. No localized enlargement of the medulla or ariel. Fourth ventricle and cerebellar tonsils normal in position. Subacute hemorrhage is not seen. Fourth ventricle is midline. Mass in the cerebellopontine angle region is not evident. 7th and 8th nerve complexes exhibits symmetry. Globes are symmetrical with no retro-orbital mass. Increased white matter signal evident, extensive edema in the right frontal lobe secondary to right frontal convexity mass, 25 mm Diffusion-weighted images demonstrate no focus of restricted diffusion Mass-effect upon the ventricular system is not identified. MRA carotid images no significant carotid stenoses. MRA brain images no large vessel occlusions Impression: Negative for acute hemorrhage Negative for acute infarct 25 mm right frontal convexity mass with extensive surrounding edema with depression of the right frontal horn secondary to the frontal edema
--- NOTE | 2025-02-08 01:24 | PD.EDADDENDU ---
Emergency Room Addendum Addendum Narrative: I took over the care from Donald Green NP at 11 PM on 02/07/2025, see his notes for complete H&P and ED course. I was asked to review the head/neck CTA report which was negative, I got called by the radiologist. I discussed the case with our hospitalist.? About the presentation and exam and diagnostics and treatments here.? And need of further care in the hospital.? Will accept the patient. Ced Reagan MD
--- NOTE | 2025-02-08 01:26 | PRELIM_ITS ---
CT angiogram of the head and neck with intravenous contrast (axial sections with sagittal and coronal reformats) February 08, 2025 at 0037 hours Clinical History: Left-sided deficits. Comparison: None available at the time of this report. Findings: Head: The internal carotid, middle and anterior cerebral arteries are patent bilaterally. The intracranial vertebral arteries are patent. The vertebrobasilar junction, basilar and posterior cerebral arteries are patent. No evidence of large vessel occlusion, critical stenosis or aneurysm. Right frontal lobe mass measuring 2.5 x 2.5 cm, possibly extra-axial. Right brain hemisphere edema. Neck: The aortic arch to the extent visualized as well as the origins of the right brachiocephalic, left common carotid, and left subclavian arteries are patent. The common carotid arteries, carotid bulbs, and internal and external carotid arteries are patent. The origins of the vertebral arteries are unremarkable. The right vertebral artery is dominant. No evidence of vascular occlusion, critical stenosis, dissection or aneurysm. The soft tissues of the neck are unremarkable. No acute fractures. Sternal wires. Impression: Head: No evidence of large vessel occlusion, critical stenosis or aneurysm. Right frontal lobe mass, possibly extra-axial. Consider correlation with MRI. Right brain hemisphere edema. Neck: No evidence of vascular occlusion, critical stenosis, dissection or aneurysm. Discussion Details: Results verbally communicated to : Dr. Reagan at 01:15 AM 02/08/2025 Report Electronically Signed By: Enmanuel Moy 02/08/2025 1:25:00 AM [EST]
--- NOTE | 2025-02-08 01:50 | PD.RESHP ---
Documentation for date of: 02/08/25 HPI History of Present Illness History of present illness: Limited HPI due to mental status. Spoke to patient's daughter Jennifer over the phone, who contributed to the HPI. 89-year-old female Patient has a past medical history of meningioma, CVA, CABG, hypertension, hyperlipidemia, type 2 diabetes mellitus, Brought in by EMS from rehab facility, for altered mental status. Spoke to patient's daughter Jennifer, who stated that she she had visited the patient last night, at the facility at 8 PM, and the patient was at her baseline mental status, conversational alert and oriented x 3 and able to move her extremities without any weakness. At the time of evaluation, the patient is found to be obtunded, responsive only to pain full stimuli, no movement elicited on the left upper extremity, also free following left upper extremity, per daughter, nursing staff from rehab facility told even at 6 AM patient's mental status had declined. LWK 8 pm. In the ER initial vitals were 213/97, heart rate 93/min, temperature 102F, CBC showed WBC 5.2, hemoglobin 13.6, platelet 24, normal coagulation profile, mild hyponatremia sodium 133, normal renal function, lactic acid 1.7, magnesium 1.3, which was repleted, normal liver function, mild alkaline phosphatase elevation, negative Pro-Blas. Urinalysis showed UTI. The patient was given IV fluid bolus, ceftriaxone, IV magnesium, subcu insulin, and acetaminophen IV. ER provider, initially tried to transfer the patient back to [place], where she was followed for her meningioma and evaluated by neurosurgeon, eventually discharged to rehab facility and deemed poor prognosis, no surgical intervention was advised. But transfer was declined due to capacity. ER provider spoke to neurologist Dr. Lopez, who recommended starting the patient on IV steroids for cerebral edema. Head CT showed frontal edema, with mass effect, depressed and in the frontal horn, 10 mm compared to 7 mm on January 06, 2025. Head CTA was done which was negative for large vessel occlusion. Patient will be admitted to medical floor for for further observation management. Past medical history: History of meningioma?was recently admitted in [place] for neurosurgical evaluation, neurosurgery recommended conservative management due to poor prognosis, history of CABG, history of CVA, history of hyperlipidemia, history of type 2 diabetes mellitus. Social history: N/A Review of Systems Review of Systems ROS Unobtainable: unobtainable due to mental status Past Medical History Past Medical History NEUROLOGIC: Positive Cerebrovascular Accident; Negative Neurological Disorders CARDIAC: Positive Hypercholesterolemia and Hypertension; Negative Cardiac Disorders or Congestive Heart Failure RESPIRATORY: Negative Chronic Obstructive Pulmonary Disease (COPD) or Asthma GASTROINTESTINAL: Negative Gastrointestinal Disorders GENITOURINARY: Negative Genitourinary Disorders or Renal Disease REPRODUCTIVE: Negative Pelvic Inflammatory Disease MUSCULOSKELETAL: Negative Musculoskeletal Disorders ENDOCRINE: Positive Diabetes Mellitus Type 2; Negative Endocrine Disorders or Diabetes Mellitus Type 1 HEMATOLOGIC: Negative Sickle Cell Disease OTHER HISTORY: Negative Autoimmune Disease, Anesthesia Reactions, Organ Transplant, MRSA, Clostridium Difficile or Cancer Family History FAMILY HISTORY: Negative Family Cardiac Disorders Surgical History SURGICAL: Positive Coronary Artery Bypass Graft; Negative Endocrine Surgery, Ear Surgery, Abdominal Surgery, Nephrectomy, Joint Replacement, Neurologic Surgery, Mastectomy, Vasectomy or Organ Transplant Social History SMOKING STATUS: Unknown if ever smoked Exam Vital Signs Temp Pulse Resp BP Pulse Ox O2 Del Method 99.6 F 95 16 174/91 H 95 Room Air 02/08/25 01:02 02/08/25 01:02 02/08/25 01:02 02/08/25 01:02 02/08/25 01:02 02/08/25 01:02 Narrative Exam General: AOx0, obtunded, GCS 11/15, saturating well on room air. Protecting airway. No drooling noted. Skin: Intact, no cyanosis or edema noted. HEENT: Atraumatic/normocephalic, JOAO, neck supple Heart: RRR, S1 and S2 without clicks or murmurs Lungs: Clear on auscultation bilaterally, no difficulty breathing Abdomen: Soft, nontender. Bowel sounds present . Vascular: Peripheral pulses palpable Neuro: Limited neuroexam due to mental status, no response to left upper extremity to noxious stimuli, able to withdraw from pain applied to right upper and lower extremity, left lower extremity. Free following left upper extremity. GCS 11/15. Results: Labs 02/07/25 18:48 02/07/25 18:48 Labs: Short CBC 02/07/25 02/07/25 Range/Units 13:15 18:48 WBC 6.0 5.2 (3.6-11.0) Thou/mm3 Hgb 12.0 13.6 (12.0-16.0) g/dL Hct 35.0 L 39.4 (36.0-46.0) % Plt Count 285 D 294 (140-440) Thou/mm3 BMP 02/07/25 02/07/25 13:15 18:48 Sodium 131 L 133 L Potassium 3.4 3.5 Chloride 94 L 94 L Carbon Dioxide 26.2 28.2 BUN 11 9 Creatinine 0.6 0.7 Glucose 338 H 268 H D Calcium 9.5 9.9 Cardiac Enzymes 02/07/25 Range/Units 13:15 Troponin I < 0.020 (0.0-0.045) ng/mL Liver Function 02/07/25 02/07/25 Range/Units 13:15 18:48 Total Bilirubin 0.5 0.4 (0.3-1.2) mg/dL AST 17 17 (0-34) U/L ALT 13 13 (10-49) U/L Alkaline Phosphatase 151 H 157 H (46-116) U/L Albumin 3.6 4.1 D (3.4-4.8) gm/dL Urine 02/07/25 Range/Units 11:59 Urine Color Yellow (Lt Yel-Yel) Urine Clarity Turbid A (Clear/Hazy) Urine pH 7.5 H (5.0-7.0) Ur Specific [place] 1.015 (1.001-1.035) Urine Protein 2+ A (Neg - Trace) Urine Glucose (UA) 4+ A (Negative) Quality Measures Quality Measures VTE prophylaxis Advance care planning discussed with:: patient Medications Home Medications and Allergies Home Medications ?Medication ?Instructions ?Recorded ?Confirmed ?Type clopidogrel 75 mg tablet (Plavix) 75 mg PO QDAY #0 tabs 02/22/17 02/08/25 History glyburide 5 mg tablet 10 mg PO BID ##0 02/22/17 02/08/25 History dulaglutide 0.75 mg/0.5 mL 0.75 mg SQ QWEEK ##0 05/23/17 02/08/25 History subcutaneous pen injector (Trulicity) amiloride 5 mg-hydrochlorothiazide 1 tab PO QDAY 05/15/19 02/08/25 History 50 mg tablet atorvastatin 20 mg tablet 20 mg PO HS 05/15/19 02/08/25 History folic acid 400 mcg tablet 400 mcg PO QDAY 09/30/20 02/08/25 History metoprolol tartrate 50 mg tablet 25 mg PO BID 10/02/20 02/08/25 History tramadol 200 mg tablet,extended 200 - 400 mg PO QDAY PRN Pain 10/02/20 02/08/25 History release 24 hr Allergies Allergy/AdvReac Type Severity Reaction Status Date / Time diclofenac Allergy Severe Rash Verified 03/16/24 15:31 promethazine Allergy Severe RASH Verified 03/16/24 15:31 Visit Medications Acetaminophen (Acetaminophen 325 Mg Tablet) 650 mg PO Q6H PRN PRN Reason: PAIN OR FEVER > 101 Stop: 03/10/25 01:35 Atorvastatin Calcium (Atorvastatin Calcium 20 Mg Tablet) 40 mg PO HS ORALIA Stop: 03/10/25 20:59 Clopidogrel Bisulfate (Clopidogrel Bisulfate 75 Mg Tablet) 75 mg PO QDAY ORALIA Stop: 03/10/25 08:59 Dexamethasone Sodium Phosphate (Dexamethasone Sod Phos Inj 4 Mg/Ml Vial) 4 mg IVP Q6HR ORALIA; Protocol Stop: 03/10/25 05:59 Dextrose (Dextrose 50%-Water Inj 50 Ml Syringe) 25 ml IV Q15MIN PRN PRN Reason: BG 50-70 responsive npo pt Stop: 03/10/25 01:39 Dextrose (Dextrose 50%-Water Inj 50 Ml Syringe) 50 ml IV Q15MIN PRN PRN Reason: BG <50 OR BG <70 & pt unresponsive Stop: 03/10/25 01:39 Glucagon (Glucagon Inj 1 Mg Vial) 1 mg IM Q15MIN PRN PRN Reason: BG <70, and no IV access Sodium Chloride (Ns) 1,000 mls @ 80 mls/hr IV .[id number] ORALIA Stop: 03/09/25 17:09 Last Admin: 02/07/25 17:19 Dose: 80 mls/hr Ceftriaxone Sodium/Dextrose (Rocephin/D5w 1gm Iv Premix) 1 gm in 50 mls @ 100 mls/hr IV QDAY ORALIA Stop: 02/15/25 08:59 Magnesium Sulfate (Magnesium Sulfate Ivpb) 2 gm in 50 mls @ 25 mls/hr IV X1 ONE Stop: 02/08/25 03:43 Insulin Human Lispro (Insulin Lispro (Admelog) 1 Unit/0.01 Ml Unit) 0 unit SC Q6HR ORALIA; Protocol Stop: 03/10/25 05:59 Labetalol HCl (Labetalol Inj 5 Mg/Ml Vial 20 Ml) 10 mg IVP Q6HR PRN PRN Reason: SBP > 185 Stop: 03/10/25 01:39 Metoprolol Tartrate (Metoprolol Tartrate 25 Mg Tablet) 25 mg PO BID ORALIA Stop: 03/10/25 08:59 Ondansetron HCl (Ondansetron Inj 2 Mg/Ml Inj 2 Ml) 4 mg IV Q6H PRN; Protocol PRN Reason: NAUSEA OR VOMITING Stop: 03/10/25 01:35 Sennosides (Senna Tablet) 2 tab PO BID PRN; Protocol PRN Reason: CONSTIPATION Stop: 03/10/25 01:35 Discontinued Medications Clonidine (Clonidine Hcl 0.1 Mg Tablet) 0.2 mg PO X1 ONE Stop: 02/07/25 18:38 Last Admin: 02/07/25 18:43 Dose: Not Given Dexamethasone Sodium Phosphate (Dexamethasone Sod Phos Inj 10 Mg/Ml Vial) 10 mg IV X1 ONE Stop: 02/07/25 15:51 Last Admin: 02/07/25 15:54 Dose: 10 mg Acetaminophen (Ofirmev Inj) 1,000 mg in 100 mls @ 250 mls/hr IV X1 ONE Stop: 02/07/25 12:15 Last Infusion: 02/07/25 13:20 Dose: Infused Lactated Ringer's (Lactated Ringers) 1,000 mls @ 999 mls/hr IV .Q1H1M ONE Stop: 02/07/25 12:53 Last Infusion: 02/07/25 13:32 Dose: Infused Ceftriaxone Sodium/Dextrose (Rocephin/D5w 1gm Iv Premix) 1 gm in 50 mls @ 100 mls/hr IV X1 ONE Stop: 02/07/25 13:43 Last Infusion: 02/07/25 14:08 Dose: Infused Magnesium Sulfate (Magnesium Sulfate Ivpb) 2 gm in 50 mls @ 25 mls/hr IV X1 ONE Stop: 02/07/25 16:33 Last Infusion: 02/07/25 16:53 Dose: Infused Insulin Human Regular (Insulin Hum Regular 1 Unit/0.01 Ml (Per Unit)) 5 unit SC X1 ONE Stop: 02/07/25 14:36 Last Admin: 02/07/25 14:55 Dose: 5 unit Losartan Potassium (Losartan Potassium 25 Mg Tablet) 25 mg PO X1 ONE Stop: 02/07/25 18:38 Last Admin: 02/07/25 18:43 Dose: Not Given Assessment & Plan Plan 89-year-old female Patient has a past medical history of meningioma, CVA, CABG, hypertension, hyperlipidemia, type 2 diabetes mellitus, Brought in by EMS from rehab facility, for altered mental status. #Acute encephalopathy #Cerebral edema secondary to meningioma #Acute stroke rule out Based on CT report, worsening cerebral edema frontal lobe surrounding the meningioma, frontal edema with mass effect depressing frontal horn,ER provider spoke to neurologist Dr. Lopez, who recommended starting the patient on IV steroids for cerebral edema and admitted the patient for treatment of UTI. Last well-known 8 PM, ordered CT angiogram to rule out LVO, as initial CT head negative for acute hemorrhage. ? Received IV dexamethasone 10 mg x 1 in ER. Scheduled IV dexamethasone 4 mg every 6 hours ? Neurology consult with Dr. Lopez is placed, appreciate recommendations ? Continue clopidogrel 75 mg ? Aspiration precautions, currently n.p.o., speech therapy referral made. ? Consider NG tube for medications and feeding, if patient's mental status continues to decline persistently. ? Continue Levetriacitam 1000mg bid #UTI ?IV ceftriaxone 1 g daily ? Follow urine culture #History of diabetes mellitus ?sliding scale insulin every 6 hourly, Patient is currently n.p.o., ?Elevated blood glucose likely worse due to steroids ?Follow A1c #Hypertensive urgency There was concern for stroke,due to patient's clinical presentation, pending neurology recommendations, ?IV labetalol 10 mg as needed for SBP more than 185 ?Pending med rec reconciliation #History of CVA #History of CABG ? Continue clopidogrel 75 mg daily ? Continue metoprolol ? Continue atorvastatin Plan of care discussed with attending Dr. Mary Styles PGY2 Attending Provider Attestation/Addendum 89-year-old female with history of COPD, coronary artery disease status post CABG, hypertension, diabetes mellitus was admitted because of altered mental status and uncontrolled hypertension. Patient was found to have cerebral edema surrounding frontal meningioma. Patient has been diagnosed with meningioma and was seen in [place] prior to this admission. ER physician attempted transfer to higher level of care. Patient was admitted and will receive IV steroid treatment for brain edema. Dr. Lopez was consulted. Patient will be started on Keppra. IV labetalol ordered for blood pressure control. She also has UTI we will start on IV ceftriaxone. I discussed with and supervised the resident physician who took care of this patient. I agree with the assessment and plan as above. Patient has poor prognosis.
[2025-02-08] MEDS: Magnesium Sulfate 2 GM Ivpb 2 GM/50 ML BAG IV (02:29)
[2025-02-08] MEDS: DEXAMETHASONE SOD PHOS INJ 4 MG/ML VIAL IVP ×3 (05:10→17:58)
[2025-02-08 05:49] LABS: Basophils # (Auto) 0.1 Thou/mm3 (0.0-0.2); Basophils % (Auto) 1 % (0-2.5); Eosinophils % (Auto) 0 % (0-10); Hematocrit 41.2 % (36.0-46.0); Hemoglobin 14.1 g/dL (12.0-16.0); Immature Granulocytes % (Auto) 1 % (0-0); Immature Granulocytes Auto 0.08 Thou/mm3 (0.00-0.00); Lymphocytes # (Auto) 1.3 Thou/mm3 (1.0-4.8); Lymphocytes % (Auto) 17 % (10-50); Mean Corpuscular HGB Conc 34.2 g/dl (31.0-37.0); Mean Corpuscular Hemoglobin 28.1 pg (25.0-35.0); Mean Corpuscular Volume 82 fL (80-100); Monocytes # (Auto) 0.3 Thou/mm3 (0.0-0.8); Monocytes % (Auto) 3 % (0-12); Neutrophils # (Auto) 6.2 Thou/mm3 (1.8-7.7); Neutrophils % (Auto) 79 % (37-80); Nucleated Red Blood Cell % 0 /100 WBC (0); Platelet Count 380 Thou/mm3 (140-440); RDW Standard Deviation 44.5 fL (36.4-46.3); Red Blood Count 5.02 Miln/mm3 (4.00-5.20); White Blood Count 7.9 Thou/mm3 (3.6-11.0)
[2025-02-08 06:11] LABS: Prothrombin Time 11.1 Seconds (9.0-12.2)
[2025-02-08 06:22] LABS: Alanine Aminotransferase 13 U/L (10-49); Albumin, Serum 4.2 gm/dL (3.4-4.8); Alkaline Phosphatase 162 U/L (46-116); Anion Gap 17 (7-16); Aspartate Amino Transferase 16 U/L (0-34); BUN/Creatinine Ratio 24 Ratio (12-20); Bilirubin,Direct 0.2 mg/dL (0.0-0.3); Bilirubin,Total 0.6 mg/dL (0.3-1.2); Blood Urea Nitrogen 17 mg/dL (9-23); Calcium 8.9 mg/dL (8.3-10.6); Chloride 95 mMol/L (98-107); Cholesterol 142 mg/dL (132-200); Creatinine (Component) 0.7 mg/dL (0.6-1.3); Estimated Creatinine Clearance 49.3 mL/min (>60); Glucose 367 mg/dL (74-106); HDL Cholesterol 47 mg/dL (40-60); LDL Cholesterol,Calculated 81 mg/dL (0-130); Osmolality,Calculated 288 (275-295); Phosphorous 3.5 mg/dL (2.4-5.1); Potassium 3.6 mMol/L (3.4-5.1); Sodium 136 mMol/L (136-145); Thyroid Stimulating Hormone 0.66 uIU/mL (0.55-4.78); Total Protein 6.7 gm/dL (5.7-8.2); Triglycerides 71 mg/dL (30-150); eGFR > 60 See Note
--- NOTE | 2025-02-08 07:36 | PC.CC ---
Addendum entered by Hector Allen RN 02/08/25 15:30: 1530 clinicals sent to [facility]. Addendum entered by Hector Allen RN 02/08/25 15:23: 1518 Called [facility], spoke to Sylvia and initiated the transfer. She stated to fax clinicals. Addendum entered by Hector Allen RN 02/08/25 15:11: 1406 called [facility], spoke to and initiated the transfer. Transfer is declined due to capacity. Addendum entered by Hector Allen RN 02/08/25 14:54: 1454 called [facility] to initiate the transfer, left VM. Addendum entered by Hector Allen RN 02/08/25 14:51: [address] Teague and informed the outcome of transfer request with [facility]. Addendum entered by Hector Allen RN 02/08/25 14:45: 1435 received call from Kirill at [facility]. She stated per Dr. Miranda neuro-suregry stated pt doesn't need any surgical intervention at this time. Pt can be followed as outpatient. Recommendations to treat the pt's UTI and diabetes first and start patient on decadron and Kepra. Addendum entered by Hector Allen RN 02/08/25 14:33: 1421 spoke to Zachery at [facility], she want to speak with Dr. Teague, conference call connected. Then she connected her neuro-surgeon Dr. Barakat on the line for peer to peer. He stated to reach out to [facility] since patient had a full work up done there and already evaluated by neuro-surgery already. Dr. Barakat had a detailed conversation with Dr. Teague. Transfer is declined. Addendum entered by Hector Allen RN 02/08/25 13:47: 1342 received call from Romi at [facility]. She wanted to speak with Dr. Teague. Conference call connected. Addendum entered by Hector Allen RN 02/08/25 12:10: 1209 Called [facility], spoke to Zachery and initiated the transfer. Addendum entered by Hector Allen RN 02/08/25 12:08: 1207 called [facility] to initiate the transfer, left VM. Addendum entered by Hector Allen RN 02/08/25 12:07: 1203 Called [facility], spoke to Kirill and initiated the transfer. She stated a nurse will give me a call back. Addendum entered by Hector Allen RN 02/08/25 11:54: 1154 clinicals sent to [facility] and [facility]. Addendum entered by Hector Allen RN 02/08/25 11:49: 1143 received call from Marian at [facility], transfer is declined due to capacity. She stated she can place the pt on wait list and recheck status at 1700. Transfer nurse is aware it's also a HLOC and continuation of care request. Addendum entered by Hector Allen RN 02/08/25 11:17: 1106 received call from Marian at [facility] and gave verbal clinicals. Addendum entered by Hector Allen RN 02/08/25 10:59: 1058 clinicals sent to [facility]. Addendum entered by Hector Allen RN 02/08/25 10:54: 1048 called [facility], spoke to Desirae and initiated the transfer. She stated a nurse will give me a call back for clinicals. Addendum entered by Hector Allen RN 02/08/25 10:43: [address] Teague. He stated per neurology recommendation, the patient requires transfer to [facility] for continuation of care/dx meningioma with mass effect. Original Note: [address] Myers, pt was a transfer in ED and then pt got admitted. Dr. Myers to review the case and call me back if transfer is needed.
[2025-02-08] MEDS: cefTRIAXone/D5w 1gm IV premix 1 GM/50 ML BAG IV (08:12)
[2025-02-08] MEDS: levETIRAcetam INJ 100 MG/ML VIAL 5ML 1000 MG IVP ×2 (08:13→21:28)
--- NOTE | 2025-02-08 11:16 | PC.SS ---
Initial assessment: patient is an 89-year-old female admitted for encephalopathy. Patient out of room and information was obtained by her daughter, Jennifer Gill. Jennifer was identified as the patient's emergency contact. Patient comes from local [facility]. Per daughter, the patient has been there for about two weeks now and was previously at [facility] before being transferred to [facility]. Jennifer informs that the patient requires assistance with ADL's and utilizes a walker to transfer. Patient PCP at the SNF is Dionisio Francisco. Jennifer informs the discharge plan is to return to [facility] when ready, patient will need transportation arranged at the time of discharge. D/c plan: return to [facility] Next of kin: daughterJennifer
--- NOTE | 2025-02-08 11:33 | PC.NURSE ---
Dr. Teague made aware of patients critical blood sugar level of 451. Per Dr. Teague administer insulin per sliding scale and recheck.
[2025-02-08] MEDS: INSULIN LISPRO (AdmeLOG) 1 UNIT/0.01 ML UNIT SC ×4 (11:38→22:15)
[2025-02-08 12:31] LABS: Base Excess, Venous -4 (-3-3); O2 Saturation, Venous 100 % (96-97); PCO2, Venous 26 mmHg (36-56); PO2, Venous 125 mmHg (15-58); pH, Venous 7.46 (7.33-7.66)
[2025-02-08] MEDS: INSULIN HUM REGULAR 1 UNIT/0.01 ML (PER UNIT) 10 UNIT SC (12:33)
[2025-02-08] MEDS: POTASSIUM CHL 10 mEq IVPB 10 MEQ/100 ML BAG 100 MEQ IV ×4 (12:34→17:58)
[2025-02-08 12:39] LABS: Beta Hydroxybutyrate 4.4 mmol/L (<0.6)
[2025-02-08 12:56] LABS: Anion Gap 21 (7-16); BUN/Creatinine Ratio 24 Ratio (12-20); Blood Urea Nitrogen 22 mg/dL (9-23); Calcium 8.6 mg/dL (8.3-10.6); Calcium (Corrected) 8.6 mg/dL (8.5-10.1); Carbon Dioxide 19.5 mMol/L (20.0-31.0); Chloride 94 mMol/L (98-107); Creatinine (Component) 0.9 mg/dL (0.6-1.3); Estimated Creatinine Clearance 38.3 mL/min (>60); Phosphorous 4.7 mg/dL (2.4-5.1); Potassium 3.8 mMol/L (3.4-5.1); Sodium 134 mMol/L (136-145); eGFR > 60 See Note
[2025-02-08 13:04] LABS: Osmolality,Calculated 293 (275-295)
[2025-02-08 13:06] LABS: Glucose 499 mg/dL (74-106)
[2025-02-08] MEDS: SODIUM CHLORIDE 0.9% 500 ML 500 ML 999 ML IV (13:48)
--- NOTE | 2025-02-08 14:02 | PCS.ST ---
Hold swallow evaluation until able to actively participate. Baseline dysphagia noted. ST will monitor for readiness.
--- NOTE | 2025-02-08 14:04 | PD.RESCONSUL ---
HPI Data of Consult Requesting Physician: Yifan Hernandez MD Admitting Provider: Yifan Hernandez MD Attending Provider: Yifan Hernandez MD Primary Care Provider: Dionisio Francisco MD Consult Narrative History of present illness: CC: Altered Mental Status *PMH history collected from patient's daughter, Jennifer, and chart review. Patient is 89-year-old female with a past medical history of meningioma, CVA, CABG, hypertension, hyperlipidemia, type 2 diabetes mellitus, Brought in by EMS from rehab facility, for altered mental status. Spoke to patient's daughter Jennifer, who stated that she she had visited the patient last night, at the facility at 8 PM, and the patient was at her baseline mental status, conversational alert and oriented x 3 and able to move her extremities without any weakness. At the time of evaluation, the patient is found to be obtunded, responsive only to pain full stimuli, no movement elicited on the left upper extremity, also free following left upper extremity, per daughter, nursing staff from rehab facility told even at 6 AM patient's mental status had declined. LWK 8 pm. In the ER initial vitals were 213/97, heart rate 93/min, temperature 102F, CBC showed WBC 5.2, hemoglobin 13.6, platelet 24, normal coagulation profile, mild hyponatremia sodium 133, normal renal function, lactic acid 1.7, magnesium 1.3, which was repleted, normal liver function, mild alkaline phosphatase elevation, negative Pro-Blas. Urinalysis showed UTI. The patient was given IV fluid bolus, ceftriaxone, IV magnesium, subcu insulin, and acetaminophen IV. ER provider, initially tried to transfer the patient back to [place], where she was followed for her meningioma and evaluated by neurosurgeon, eventually discharged to rehab facility and deemed poor prognosis, no surgical intervention was advised. But transfer was declined due to capacity. ER provider spoke to neurologist Dr. Lopez, who recommended starting the patient on IV steroids for cerebral edema. Head CT showed frontal edema, with mass effect, depressed and in the frontal horn, 10 mm compared to 7 mm on January 06, 2025. Head CTA was done which was negative for large vessel occlusion. Patient will be admitted to medical floor for for further observation management. Past medical history: History of meningioma?was recently admitted in [place] for neurosurgical evaluation, neurosurgery recommended conservative management due to poor prognosis, history of CABG, history of CVA, history of hyperlipidemia, history of type 2 diabetes mellitus. Social history: N/A 02/08/2025: ICU team consulted given DKA and acute encephalopathy and soft tissue tumor mass w/ calcified rim and transverse dimension of mass 27 mm producing mass effect with edema noted secondary to UTI. Concern that patient could not protect airway. Recent hospitalized at [facility] in [place] after being transferred directly from the ER for management of meningioma with an accepting neurosurgeon physician. Family at bedside is unsure of definitive diagnosis given at hospital in [place]. Explained overall poor prognosis given meningioma noted on CT and MRI with mass effect from edema. Recommendations are to treat underlying conditions of DKA and UTI. Goals of care discussion with daughters present at bedside, family would like additional time to take home and CODE STATUS. cc:: cc: Yifan Hernandez MD Review of Systems Review of Systems Narrative Review of Systems: limited at patient is altered. General appearance: NO weight change, NO fatigue, NO weakness, NO fever, NO chills, NO night sweats, No cough, Increased confusion (per family) Skin: NO rash, NO itching, NO sores, NO moles HEENT: NO Trauma, NO nausea, NO vomiting, NO visual changes, NO blurry vision, NO double vision, NO tinnitus, NO vertigo, NO ear discharge, NO rhinorrhea, NO stuffiness, NO sneezing, NO allergy, NO epistaxis. NO Hoarseness, NO sore throat, NO swollen neck. Cardiac: NO Palpitations, NO dyspnea on exertion, NO orthopnea, NO paroxysmal nocturnal dyspnea, NO edema Respiratory: NO Shortness of Breath, NO Wheezing, NO Cough, NO Sputum, NO hemoptysis GI:NO appetite, NO nausea, NO vomiting, NO dysphagia, NO changes in bowel frequency, NO stool color, NO diarrhea, NO constipation, NO hemetemesis, NO hemorrhoids, NO melena, NO hematechezia, NO abdominal pain, NO jaundice Renal: NO frequency, NO hesitancy, NO urgency, NO hematuria, NO nocturia, NO incontinence MSK: NO muscle weakness, NO gout, NO arthritis, NO muscle stiffness Neuro: NO headaches, NO tremors, NO weakness, NO paralysis, NO seizures, NO loss of consciousness, NO numbness. Hem: NO anemia, NO easy bruising/bleeding, NO petechiae, NO purpura Endo: NO heat/cold intolerance, NO excessive sweating, NO polyuria, NO polydipsia, NO polyphagia, NO thyroid problems, Yes diabetes Pysch: NO mood, NO anxiety, NO depression Exam Vital Signs Temp Pulse Resp BP Pulse Ox O2 Del Method 97.7 F 110 H 21 H 161/86 H 97 Room Air 02/08/25 12:00 02/08/25 12:00 02/08/25 12:00 02/08/25 12:00 02/08/25 12:02/08/25 12:00 Narrative Exam General Appearance: Alert & Oriented X1, well-nourished [sex] who is lying in bed in no acute distress, no increased work of breathing noted. CABG scar noted on chest. HEENT: Skull symmetrical and atraumatic. Conjunctivae pale pink and moist. Decreased pupillary reaction to light. External ear without lesion or discharge. Oral cavity appearing xerostomia and darking mucosa on left upper palate Cardio: Tachycardia with S1 and S2 heart sounds. No murmurs or extra heart sounds auscultated. No bruits on carotid auscultation. No peripheral edema or cyanosis. Pedal pulses +2 Lungs: Symmetric with decreased expansion. Breath sounds vesicular without crackles, wheezing or rhonchi Abdomen: Non-tender, Non-distended, Hypo-Reactive Bowel Sounds, Neuro: Yes Alert, Yes cooperative, NO oriented to person, No place, and NO time. Speech, not clear. Left Upper motor strength 0/5 and Lower motor strength 3/5. Sensation intact, withdrawls from pain Results Labs 02/09/25 05:40 02/09/25 08:00 Labs: Short CBC 02/07/25 02/08/25 Range/Units 18:48 04:51 WBC 5.2 7.9 D (3.6-11.0) Thou/mm3 Hgb 13.6 14.1 (12.0-16.0) g/dL Hct 39.4 41.2 (36.0-46.0) % Plt Count 294 380 D (140-440) Thou/mm3 BMP 02/07/25 02/08/25 02/08/25 18:48 04:51 12:11 Sodium 133 L 136 134 L Potassium 3.5 3.6 3.8 Chloride 94 L 95 L 94 L Carbon Dioxide 28.2 24.0 19.5 L BUN 9 17 22 Creatinine 0.7 0.7 0.9 Glucose 268 H D 367 H D 499 H* D Calcium 9.9 8.9 8.6 Liver Function 02/07/25 02/08/25 02/08/25 Range/Units 18:48 04:51 12:11 Total Bilirubin 0.4 0.6 (0.3-1.2) mg/dL Direct Bilirubin 0.2 (0.0-0.3) mg/dL AST 17 16 (0-34) U/L ALT 13 13 (10-49) U/L Alkaline Phosphatase 157 H 162 H (46-116) U/L Albumin 4.1 D 4.2 4.0 (3.4-4.8) gm/dL ABG Interpretation ABG results: 02/08/25 12:11 VBG pH 7.46 VBG pCO2 26 L VBG pO2 125 H VBG Base Excess -4 L Quality Measures Quality Measures VTE prophylaxis Advance care planning discussed with:: child Medications Home Medications and Allergies Home Medications ?Medication ?Instructions ?Recorded ?Confirmed ?Type clopidogrel 75 mg tablet (Plavix) 75 mg PO QDAY #0 tabs 02/22/17 02/08/25 History glyburide 5 mg tablet 10 mg PO BID ##0 02/22/17 02/08/25 History dulaglutide 0.75 mg/0.5 mL 0.75 mg SQ QWEEK ##0 05/23/17 02/08/25 History subcutaneous pen injector (Trulicity) amiloride 5 mg-hydrochlorothiazide 1 tab PO QDAY 05/15/19 02/08/25 History 50 mg tablet atorvastatin 20 mg tablet 20 mg PO HS 05/15/19 02/08/25 History folic acid 400 mcg tablet 400 mcg PO QDAY 09/30/20 02/08/25 History metoprolol tartrate 50 mg tablet 25 mg PO BID 10/02/20 02/08/25 History tramadol 200 mg tablet,extended 200 - 400 mg PO QDAY PRN Pain 10/02/20 02/08/25 History release 24 hr Allergies Allergy/AdvReac Type Severity Reaction Status Date / Time diclofenac Allergy Severe Rash Verified 03/16/24 15:31 promethazine Allergy Severe RASH Verified 03/16/24 15:31 Visit Medications Acetaminophen (Acetaminophen 325 Mg Tablet) 650 mg PO Q6H PRN PRN Reason: PAIN OR FEVER > 101 Stop: 03/10/25 01:35 Atorvastatin Calcium (Atorvastatin Calcium 20 Mg Tablet) 40 mg PO HS ORALIA Stop: 03/10/25 20:59 Clopidogrel Bisulfate (Clopidogrel Bisulfate 75 Mg Tablet) 75 mg PO QDAY ORALIA Stop: 03/10/25 08:59 Last Admin: 02/08/25 10:45 Dose: Not Given Dexamethasone Sodium Phosphate (Dexamethasone Sod Phos Inj 4 Mg/Ml Vial) 4 mg IVP Q6HR ORALIA; Protocol Stop: 03/10/25 05:59 Last Admin: 02/08/25 11:22 Dose: 4 mg Dextrose (Dextrose 50%-Water Inj 50 Ml Syringe) 25 ml IV Q15MIN PRN PRN Reason: BG 50-70 responsive npo pt Stop: 03/10/25 01:39 Dextrose (Dextrose 50%-Water Inj 50 Ml Syringe) 50 ml IV Q15MIN PRN PRN Reason: BG <50 OR BG <70 & pt unresponsive Stop: 03/10/25 01:39 Glucagon (Glucagon Inj 1 Mg Vial) 1 mg IM Q15MIN PRN PRN Reason: BG <70, and no IV access Potassium Chloride (Kcl Ivpb) 10 meq in 100 mls @ 100 mls/hr IV Q1H ORALIA Stop: 02/08/25 16:01 Last Admin: 02/08/25 13:30 Dose: 100 mls/hr Sodium Chloride (Ns) 1,000 mls @ 75 mls/hr IV .[id number] ORALIA Stop: 03/10/25 13:10 Piperacillin/Tazobactam/Dextrose (Zosyn) 3.375 gm in 50 mls @ 12.5 mls/hr IV Q8HR ORALIA Stop: 02/15/25 21:59 Piperacillin/Tazobactam/Dextrose (Zosyn) 3.375 gm in 50 mls @ 100 mls/hr IV X1 ONE Stop: 02/08/25 14:29 Insulin Human Lispro (Insulin Lispro (Admelog) 1 Unit/0.01 Ml Unit) 0 unit SC Q6HR ORALIA; Protocol Stop: 03/10/25 05:59 Last Admin: 02/08/25 11:38 Dose: 4 unit Labetalol HCl (Labetalol Inj 5 Mg/Ml Vial 20 Ml) 10 mg IVP Q6HR PRN PRN Reason: SBP > 185 Stop: 03/10/25 01:39 Levetiracetam (Levetiracetam Inj 100 Mg/Ml Vial 5ml) 1,000 mg IVP Q12HR ORALIA Stop: 03/10/25 08:59 Last Admin: 02/08/25 08:13 Dose: 1,000 mg Metoprolol Tartrate (Metoprolol Tartrate 25 Mg Tablet) 25 mg PO BID ORALIA Stop: 03/10/25 08:59 Last Admin: 02/08/25 10:45 Dose: Not Given Ondansetron HCl (Ondansetron Inj 2 Mg/Ml Inj 2 Ml) 4 mg IV Q6H PRN; Protocol PRN Reason: NAUSEA OR VOMITING Stop: 03/10/25 01:35 Sennosides (Senna Tablet) 2 tab PO BID PRN; Protocol PRN Reason: CONSTIPATION Stop: 03/10/25 01:35 Discontinued Medications Clonidine (Clonidine Hcl 0.1 Mg Tablet) 0.2 mg PO X1 ONE Stop: 02/07/25 18:38 Last Admin: 02/07/25 18:43 Dose: Not Given Dexamethasone Sodium Phosphate (Dexamethasone Sod Phos Inj 10 Mg/Ml Vial) 10 mg IV X1 ONE Stop: 02/07/25 15:51 Last Admin: 02/07/25 15:54 Dose: 10 mg Acetaminophen (Ofirmev Inj) 1,000 mg in 100 mls @ 250 mls/hr IV X1 ONE Stop: 02/07/25 12:15 Last Infusion: 02/07/25 13:20 Dose: Infused Lactated Ringer's (Lactated Ringers) 1,000 mls @ 999 mls/hr IV .[id number] ONE Stop: 02/07/25 12:53 Last Infusion: 02/07/25 13:32 Dose: Infused Ceftriaxone Sodium/Dextrose (Rocephin/D5w 1gm Iv Premix) 1 gm in 50 mls @ 100 mls/hr IV X1 ONE Stop: 02/07/25 13:43 Last Infusion: 02/07/25 14:08 Dose: Infused Magnesium Sulfate (Magnesium Sulfate Ivpb) 2 gm in 50 mls @ 25 mls/hr IV X1 ONE Stop: 02/07/25 16:33 Last Infusion: 02/07/25 16:53 Dose: Infused Sodium Chloride (Ns) 1,000 mls @ 80 mls/hr IV .[id number] ORALIA Stop: 03/09/25 17:09 Last Infusion: 02/08/25 04:24 Dose: Infused Ceftriaxone Sodium/Dextrose (Rocephin/D5w 1gm Iv Premix) 1 gm in 50 mls @ 100 mls/hr IV QDAY ORALIA Stop: 02/15/25 08:59 Last Admin: 02/08/25 08:12 Dose: 100 mls/hr Magnesium Sulfate (Magnesium Sulfate Ivpb) 2 gm in 50 mls @ 25 mls/hr IV X1 ONE Stop: 02/08/25 03:43 Last Infusion: 02/08/25 04:58 Dose: Infused Sodium Chloride (Ns) 500 mls @ 999 mls/hr IV .Q31M ONE Stop: 02/08/25 13:40 Last Admin: 02/08/25 13:48 Dose: 999 mls/hr Insulin Human Regular (Insulin Hum Regular 1 Unit/0.01 Ml (Per Unit)) 5 unit SC X1 ONE Stop: 02/07/25 14:36 Last Admin: 02/07/25 14:55 Dose: 5 unit Insulin Human Regular (Insulin Hum Regular 1 Unit/0.01 Ml (Per Unit)) 10 unit IV X1 ONE Stop: 02/08/25 12:03 Insulin Human Regular (Insulin Hum Regular 1 Unit/0.01 Ml (Per Unit)) 10 unit SC X1 ONE Stop: 02/08/25 12:13 Last Admin: 02/08/25 12:33 Dose: 10 unit Losartan Potassium (Losartan Potassium 25 Mg Tablet) 25 mg PO X1 ONE Stop: 02/07/25 18:38 Last Admin: 02/07/25 18:43 Dose: Not Given Assessment & Plan Plan Patient is 89-year-old female with a past medical history of meningioma, CVA, CABG, hypertension, hyperlipidemia, type 2 diabetes mellitus who was admitted on 02/07/2025 for further observation. Central Nervous System: Problem: Acute Encephalopathy, history of CVA DDX: likely secondary to mass producing lesion noted on CT scan with edema. Meninigioma noted on imagining per chart review in 2020. Left upper extremity decrease motor function likely secondary to mass effect on MCA. vs infectious cause from UTI leading to delirium vs DKA Dx: Head CT (02/07/2025): Again noted right frontal soft tissue tumor mass with calcified rim, transverse dimension 27 mm. Frontal edema is again depicted with additional mass effect depressing the right frontal horn, currently 10 mm compared to 7 mm on January 07, 2025. Head/Neck CTA: No significant neck arterial stenoses, No cerebral large vessel arterial occlusions, thrombus, Enhancing right frontal convexity mass most consistent with meningioma. Brain MRI w/ MRA: Negative for acute hemorrhage, Negative for acute infarct, and 25 mm right frontal convexity mass with extensive surrounding edema with depression of the right frontal horn secondary to the frontal edema RX: Dexamethasone 4 mg IVP Q6HR, Clopidogrel 75 mg qday, and Levetiracetam 1000 mg BID RRX: Neuro-surgery second consultation; per neurology recommendations systolic blood pressure 130, Neurology consulted, Dr. Bunn, consulted Cardiovascular: Problem: Hypertension DDX: Past medical CABG and CVA, per chart review TIA first noted in 2020. Dx: EKG Sinus rhythm RX: , Metroplolol 25 mg PO BID, and Labetalol 10 mg IVP RRX: Monitor Blood pressure History CABG and Hyperlipedemia -continue Atorvastatin 40 mg PO HS Respiratory: Problem: Stable DDX: Patient continues to be able to protect airway. Monitor Magdy Coma Scale less than 8. Dx: RX: RRX: Gastroenterology: Problem: Stable DDX: Dx: RX: NG tube recommended. RRX: Renal: Problem: Pseudohyponatremia DDX: Corrected sodium for hyperglycemia, 140 with osmolarity of 293 hyperglycemia. Dx: RX: treat underlying moderate DKA RRX: Heme: Problem: Stable DDX: Dx: RX: RRX: DVT prophylaxis: Compression Device and Lovenox Endo: Problem: DKA, moderate DDX: Moderate DKA likley multi-factorial in the setting of infection from UTI, Dexamethasone, and trauma to the brain from edema noted on MRI and CT. Medical history diabetes mellitus type 2 with home medication that includes Trulicity 0.77 weekly, Glyburide, and lispro (?). Previous A1c (07/19/2024) 9.0. Dx: Blood Glucose on admission 367-->499 (02/08/2025) , Anion gap 21, Beta-hydroxybutyrate 4.4 RX: Normal Bolus X 1, followed by NS 150 cc; Renal Panel Q4 HRs first one to be collected at 6 PM (STAT), A1c, Please do random bedside glucose check at 4 PM Sliding Scale: 150-200: 5 units 201-250: 7 units 251-300: 10 units >300: 12 units RRX: Monitor K and Phosphate; replace as needed. ID: Problem: SIRs DDX: Meeting SIRs criteria at the time of consult with tachycardia, tachypneia, and known source of infection from UTI but not septic as change in vitals likely secondary to acute encephloapthy from meningioma leading to edema Dx: Urinary tract infectio(n as noted on UA with turbid urine, positive Esterase, and WBC 1507; bacteria 4+ Urine Culture: GNR (past medical history of ESBL). Chest x-ray: NO pneumonia and CABG noted. RX: start Zosyn (02/08/2025--) RRX: Stop Ceftriaxone (02/07/2025--02/07/2025) Goals of Care: Overall guarded prognosis given meningioma and edema noted on MRI. Daughters at bedside would like additional time to discuss goals of care with family. Health Maintenance: Disp: Pt is currently admitted to floors for further management of acute encephloapthy, awaiting cultures and DKA; ICU consulted for DKA and acute encephloapthy FEN: NG tube DVT: Compression Device Code: Full Code - The patient's plan was discussed with attending Dr. Kirill Heck MD PGY1 Internal Medicine Attending Provider Attestation/Addendum pt seen and examined with resident, agree with above. In brief this is a 89yo F admitted to the hospital with UTI and meningioma causing compression and edema in the R frontal lobe. Pt was started on decadron and developed mild DKA. ICU was consulted. PT has a waxing and waning mental status and at time of eval she was awake and able to follow commands. She did have some L sided weakness that was notable. oral pharynx is dry with poor dentition, LCTAB, HRRR, no increase in WOB, abd s/nt/bs+, no edema of LE, pulses palp. Initially there was concern for resp failure and need for intubation with a GCS <8 however on eval this had improved. d/w family and they have significant concerns. Case was d/w primary team and recommendations were as follows UTI- change abx to zosyn considering prior Ucx showed ESBL DKA- this is mod and does not require an insulin gtt at this time. would cont with subq insulin and give NS for IVF given her cerebral edema. monitor labs q4hrs with insulin q4 as well. AMS- in the setting of likly undertreated UTI and concurrent DKA. pts cerebral edema from compression 2/2 meningioma is likely a significant contributor. NS recs are for palliative care and no surgical tx recommended. Would touch base with additional NS for 2nd opinion given the family situation. The family appears as if they are reconsidering code status however should her mentation decline prior to change admit to ICU and intubate. case d/w floor team and ICU team extensive and prolonged conversation with family regarding overall condition, meningioma and compression, cerebral edema, UTI, DKA, Sz etc. They would like to have additional discussions with family labs, imaging, records reviewed ~75min required for eval, exam, review, intervention, discussion and formulation of POC for this acutely ill pt at high risk for further and ongoing decompensation
--- NOTE | 2025-02-08 14:21 | XR_ITS ---
Examination: AP chest single view Technique one AP portable upright chest single view Date and time: February 08, 2025 1436 hours INDICATIONS: Post orogastric tube placement. FINDINGS: Orogastric tube sidehole is just beyond the GE junction Normal heart size CABG IMPRESSION: Advance the orogastric tube 4 cm
--- NOTE | 2025-02-08 14:32 | PD.RESCONSUL ---
HPI Data of Consult Requesting Physician: Yifan Hernandez MD Admitting Provider: Yifan Hernandez MD Attending Provider: Yifan Hernandez MD Primary Care Provider: Dionisio Francisco MD Consult Narrative Reason for consult: altered mental status History of present illness: The patient is a 88-year-old female with a previous medical history of hypertension, urogenital cancer status post left kidney, bladder resection, CAD, A-fib on warfarin, status post pacemaker placement who was brought to the ED due to confusion and speech impairment that started approximately on Friday last week. Due to the aphasia most of the history was taken through the conversation with the family and chart review. Initially they attributed the change in the mental status due to being overmedicated. Later on the weekend the family went for a camping trip, but communicating over the phone they noticed the confusion and speech changes that are unusual for the patient. On the baseline she is independent, AAO x 3, ambulates on her own using cane. Her residential driver Dr. Sanders. In the ED initial blood pressure was 182/80, pulse 69, respiratory rate 16, saturating well on [address] head showed large area of edema in the left frontal lobe. Teleneuro was consulted, differential diagnosis includes malignancy and subacute ischemic stroke. MRI was ordered, cardiology cleared patient for the MRI. Head CTA showed stenosis of the right carotid artery 70% and left carotid bifurcation 40%, negative for large vessel occlusion. Echo showed ejection fraction of 40 to 45%. Labs showed WBC count 11.8, hemoglobin 12.5, platelets 422, INR 1.1, sodium 140, potassium 4.5, chloride 105, carbon dioxide 27.6, glucose 104, cholesterol 178, LDL 114, HDL 27. Neurology was consulted for subacute stroke workup. Social history: lives with her family, uses cane for ambulation, independent in ADL. Former smoker, used to smoke 40 years ago, occasionally drinks a glass of wine. 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 Home medications: Furosemide 40 mg, hydrocodone?acetaminophen, irbesartan, pravastatin, spironolactone, warfarin. Surgeries: Knee replacement, hip replacement, pacemaker placement, status post bladder cancer resection, left nephroureterectomy The patient is a 89-year-old female with a previous medical history of right frontal meningioma, CVA, CAD status post CABG, hypertension, hyperlipidemia, type 2 diabetes mellitus who was brought in by ambulance from the [facility] due to altered mentation. History gathering is done through the chart review and talking to the medical personnel. Patient's daughter who visited the patient at 8 PM last night noted patient to be AAO x 3 without weakness. 6 AM she was found to be altered. In the ED head CT showed frontal soft tissue tumor 27 mm in transverse dimension, frontal edema with mass effect depression in the right frontal horn 10 mm compared to 7 mm on January 07, 2025. Head and neck CTA showed enhancing right frontal convexity mass most consistent with meningioma, negative for significant arterial stenosis and large vessel occlusions. Brain MRI showed 25 mm right frontal convexity ED mass with extensive surrounding edema with depression of the right frontal horn secondary to the frontal edema. Initially ED provider plan to transfer patient to the [place]. She was recently admitted in the [place] where she was evaluated by neurosurgeon, no surgical intervention was advised due to the poor prognosis and patient was discharged to the SNF. Transfer was canceled due to the limited capacity. Patient was started on steroids and antiseizure medication. 02/08/25: Patient's blood pressure in the range of 160-170s, tachypneic, tachycardic, afebrile, saturating well on room air. Blood sugar was found to be 499. ICU team was consulted for possible management of DKA in the setting of brain swelling. Neurology was consulted due to altered mental status secondary to intracranial tumor. cc:: cc: Yifan Hernandez MD Review of Systems Review of Systems ROS Unobtainable: unobtainable due to mental status Exam Vital Signs Temp Pulse Resp BP Pulse Ox O2 Del Method 97.7 F 110 H 21 H 161/86 H 97 Room Air 02/08/25 12:02/08/25 12:02/08/25 12:02/08/25 12:02/08/25 12:02/08/25 12:00 Narrative Exam Gen: Well-developed and well-nourished. HEENT: NCAT, PERRLA, EOMI, MMM, anicteric conjunctivae. CVS: normal S1 and S2. RRR. No M/R/G. Resp: CTA B/L. No rhonchi, rales, crackles or wheezing. Tachypneic. Abd: soft, non-tender, non-distended. BS+ in all 4 quadrants. MSK: Good ROM in BUE & BLE. No edema or rash. Neuro: Alert, awake and oriented x0. Cranial nerves: Right gaze deviation, right facial droop. Speech and language: doesnot answer questions. Motor system: Tone and bulk: Decreased tonus on the left side: Strength: does not follow commands, spontaneously moves right arm. Plantar reflex: Downgoing bilaterally. Sensory system: Impossible to assess. Coordination: Not tested Gait: Not tested. No signs of meningeal irritation noted. Psych: impossible to assess. Results Labs 02/09/25 05:40 02/09/25 00:23 Labs: Short CBC 02/07/25 02/08/25 Range/Units 18:48 04:51 WBC 5.2 7.9 D (3.6-11.0) Thou/mm3 Hgb 13.6 14.1 (12.0-16.0) g/dL Hct 39.4 41.2 (36.0-46.0) % Plt Count 294 380 D (140-440) Thou/mm3 BMP 02/07/25 02/08/25 02/08/25 18:48 04:51 12:11 Sodium 133 L 136 134 L Potassium 3.5 3.6 3.8 Chloride 94 L 95 L 94 L Carbon Dioxide 28.2 24.0 19.5 L BUN 9 17 22 Creatinine 0.7 0.7 0.9 Glucose 268 H D 367 H D 499 H* D Calcium 9.9 8.9 8.6 Liver Function 02/07/25 02/08/25 02/08/25 Range/Units 18:48 04:51 12:11 Total Bilirubin 0.4 0.6 (0.3-1.2) mg/dL Direct Bilirubin 0.2 (0.0-0.3) mg/dL AST 17 16 (0-34) U/L ALT 13 13 (10-49) U/L Alkaline Phosphatase 157 H 162 H (46-116) U/L Albumin 4.1 D 4.2 4.0 (3.4-4.8) gm/dL ABG Interpretation ABG results: 02/08/25 12:11 VBG pH 7.46 VBG pCO2 26 L VBG pO2 125 H VBG Base Excess -4 L Quality Measures Quality Measures VTE prophylaxis Advance care planning discussed with:: other Medications Home Medications and Allergies Home Medications ?Medication ?Instructions ?Recorded ?Confirmed ?Type clopidogrel 75 mg tablet (Plavix) 75 mg PO QDAY #0 tabs 02/22/17 02/08/25 History glyburide 5 mg tablet 10 mg PO BID ##0 02/22/17 02/08/25 History dulaglutide 0.75 mg/0.5 mL 0.75 mg SQ QWEEK ##0 05/23/17 02/08/25 History subcutaneous pen injector (Trulicity) amiloride 5 mg-hydrochlorothiazide 1 tab PO QDAY 05/15/19 02/08/25 History 50 mg tablet atorvastatin 20 mg tablet 20 mg PO HS 05/15/19 02/08/25 History folic acid 400 mcg tablet 400 mcg PO QDAY 09/30/20 02/08/25 History metoprolol tartrate 50 mg tablet 25 mg PO BID 10/02/20 02/08/25 History tramadol 200 mg tablet,extended 200 - 400 mg PO QDAY PRN Pain 10/02/20 02/08/25 History release 24 hr Allergies Allergy/AdvReac Type Severity Reaction Status Date / Time diclofenac Allergy Severe Rash Verified 03/16/24 15:31 promethazine Allergy Severe RASH Verified 03/16/24 15:31 Visit Medications Acetaminophen (Acetaminophen 325 Mg Tablet) 650 mg PO Q6H PRN PRN Reason: PAIN OR FEVER > 101 Stop: 03/10/25 01:35 Atorvastatin Calcium (Atorvastatin Calcium 20 Mg Tablet) 40 mg PO HS [facility] Stop: 03/10/25 20:59 Clopidogrel Bisulfate (Clopidogrel Bisulfate 75 Mg Tablet) 75 mg PO QDAY [facility] Stop: 03/10/25 08:59 Last Admin: 02/08/25 10:45 Dose: Not Given Dexamethasone Sodium Phosphate (Dexamethasone Sod Phos Inj 4 Mg/Ml Vial) 4 mg IVP Q6HR [facility]; Protocol Stop: 03/10/25 05:59 Last Admin: 02/08/25 11:22 Dose: 4 mg Dextrose (Dextrose 50%-Water Inj 50 Ml Syringe) 25 ml IV Q15MIN PRN PRN Reason: BG 50-70 responsive npo pt Stop: 03/10/25 01:39 Dextrose (Dextrose 50%-Water Inj 50 Ml Syringe) 50 ml IV Q15MIN PRN PRN Reason: BG <50 OR BG <70 & pt unresponsive Stop: 03/10/25 01:39 Glucagon (Glucagon Inj 1 Mg Vial) 1 mg IM Q15MIN PRN PRN Reason: BG <70, and no IV access Potassium Chloride (Kcl Ivpb) 10 meq in 100 mls @ 100 mls/hr IV Q1H [facility] Stop: 02/08/25 16:01 Last Admin: 02/08/25 13:30 Dose: 100 mls/hr Piperacillin/Tazobactam/Dextrose (Zosyn) 3.375 gm in 50 mls @ 12.5 mls/hr IV Q8HR [facility] Stop: 02/15/25 21:59 Sodium Chloride (Ns) 1,000 mls @ 150 mls/hr IV .Q6H40M [facility] Stop: 03/10/25 14:12 Sodium Chloride (Ns) 500 mls @ 999 mls/hr IV .Q31M ONE Stop: 02/08/25 14:43 Last Admin: 02/08/25 14:28 Dose: Not Given Insulin Human Lispro (Insulin Lispro (Admelog) 1 Unit/0.01 Ml Unit) 0 unit SC Q4H [facility]; Protocol Stop: 03/10/25 14:14 Labetalol HCl (Labetalol Inj 5 Mg/Ml Vial 20 Ml) 10 mg IVP Q6HR PRN PRN Reason: SBP > 185 Stop: 03/10/25 01:39 Levetiracetam (Levetiracetam Inj 100 Mg/Ml Vial 5ml) 1,000 mg IVP Q12HR [facility] Stop: 03/10/25 08:59 Last Admin: 02/08/25 08:13 Dose: 1,000 mg Metoprolol Tartrate (Metoprolol Tartrate 25 Mg Tablet) 25 mg PO BID [facility] Stop: 03/10/25 08:59 Last Admin: 02/08/25 10:45 Dose: Not Given Ondansetron HCl (Ondansetron Inj 2 Mg/Ml Inj 2 Ml) 4 mg IV Q6H PRN; Protocol PRN Reason: NAUSEA OR VOMITING Stop: 03/10/25 01:35 Sennosides (Senna Tablet) 2 tab PO BID PRN; Protocol PRN Reason: CONSTIPATION Stop: 03/10/25 01:35 Discontinued Medications Clonidine (Clonidine Hcl 0.1 Mg Tablet) 0.2 mg PO X1 ONE Stop: 02/07/25 18:38 Last Admin: 02/07/25 18:43 Dose: Not Given Dexamethasone Sodium Phosphate (Dexamethasone Sod Phos Inj 10 Mg/Ml Vial) 10 mg IV X1 ONE Stop: 02/07/25 15:51 Last Admin: 02/07/25 15:54 Dose: 10 mg Acetaminophen (Ofirmev Inj) 1,000 mg in 100 mls @ 250 mls/hr IV X1 ONE Stop: 02/07/25 12:15 Last Infusion: 02/07/25 13:20 Dose: Infused Lactated Ringer's (Lactated Ringers) 1,000 mls @ 999 mls/hr IV .Q1H1M ONE Stop: 02/07/25 12:53 Last Infusion: 02/07/25 13:32 Dose: Infused Ceftriaxone Sodium/Dextrose (Rocephin/D5w 1gm Iv Premix) 1 gm in 50 mls @ 100 mls/hr IV X1 ONE Stop: 02/07/25 13:43 Last Infusion: 02/07/25 14:08 Dose: Infused Magnesium Sulfate (Magnesium Sulfate Ivpb) 2 gm in 50 mls @ 25 mls/hr IV X1 ONE Stop: 02/07/25 16:33 Last Infusion: 02/07/25 16:53 Dose: Infused Sodium Chloride (Ns) 1,000 mls @ 80 mls/hr IV .[id number] [facility] Stop: 03/09/25 17:09 Last Infusion: 02/08/25 04:24 Dose: Infused Ceftriaxone Sodium/Dextrose (Rocephin/D5w 1gm Iv Premix) 1 gm in 50 mls @ 100 mls/hr IV QDAY [facility] Stop: 02/15/25 08:59 Last Admin: 02/08/25 08:12 Dose: 100 mls/hr Magnesium Sulfate (Magnesium Sulfate Ivpb) 2 gm in 50 mls @ 25 mls/hr IV X1 ONE Stop: 02/08/25 03:43 Last Infusion: 02/08/25 04:58 Dose: Infused Sodium Chloride (Ns) 500 mls @ 999 mls/hr IV .Q31M ONE Stop: 02/08/25 13:40 Last Admin: 02/08/25 13:48 Dose: 999 mls/hr Sodium Chloride (Ns) 1,000 mls @ 75 mls/hr IV .[id number] [facility] Stop: 03/10/25 13:10 Piperacillin/Tazobactam/Dextrose (Zosyn) 3.375 gm in 50 mls @ 100 mls/hr IV X1 ONE Stop: 02/08/25 14:29 Insulin Human Lispro (Insulin Lispro (Admelog) 1 Unit/0.01 Ml Unit) 0 unit SC Q6HR [facility]; Protocol Stop: 03/10/25 05:59 Last Admin: 02/08/25 11:38 Dose: 4 unit Insulin Human Regular (Insulin Hum Regular 1 Unit/0.01 Ml (Per Unit)) 5 unit SC X1 ONE Stop: 02/07/25 14:36 Last Admin: 02/07/25 14:55 Dose: 5 unit Insulin Human Regular (Insulin Hum Regular 1 Unit/0.01 Ml (Per Unit)) 10 unit IV X1 ONE Stop: 02/08/25 12:03 Insulin Human Regular (Insulin Hum Regular 1 Unit/0.01 Ml (Per Unit)) 10 unit SC X1 ONE Stop: 02/08/25 12:13 Last Admin: 02/08/25 12:33 Dose: 10 unit Losartan Potassium (Losartan Potassium 25 Mg Tablet) 25 mg PO X1 ONE Stop: 02/07/25 18:38 Last Admin: 02/07/25 18:43 Dose: Not Given Assessment & Plan Plan The patient is a 89-year-old female with a previous medical history of right frontal meningioma, CVA, CAD status post CABG, hypertension, hyperlipidemia, type 2 diabetes mellitus who was brought in by ambulance from the [facility] due to altered mentation. #Acute encephalopathy #Right frontal lobe meningioma #Right frontal lobe edema #Acute stroke ruled out #History of CVA Patient has been following up with Dr. Lopez previously and was admitted in [place], but was not a candidate for surgery. Head CT showed frontal soft tissue tumor 27 mm in transverse dimension, frontal edema with mass effect depression in the right frontal horn 10 mm compared to 7 mm on January 07, 2025. Head and neck CTA showed enhancing right frontal convexity mass most consistent with meningioma, negative for significant arterial stenosis and large vessel occlusions. Brain MRI showed 25 mm right frontal convexity ED mass with extensive surrounding edema with depression of the right frontal horn secondary to the frontal edema. Plan: ? IV dexamethasone 4 mg every 6 hours ? Continue clopidogrel 75 mg ? Aspiration precautions - HOB elevation 30 degrees - ICU team consulted, appreciate recs ? Levetiracitam 1000 mg BID - Blood pressure control, goal 130-140/80, avoid hypotension - patient was not a candidate for transfer due to poor prognosis #UTI #History of diabetes mellitus #Diabetic ketoacidosis #Hypertensive urgency #History CAD, s/p CABG - management per primary team Plan of care discussed with attending Dr. Lopez. Cecilia Parish MD, PGY 1. Attending Provider Attestation/Addendum I personally reviewed the patient's chart and agreed with resident's findings, assessment and plan of care. Will continue with current mgt, follow her closely with the clinical exam and EEG for prognosis. Patient's condition and prognosis was explained in detail to patient's family and they are waiting to make the decision.
[2025-02-08] MEDS: PIPER/TAZO 3.375 GM PREMIX 3.375 GM/50 ML BAG IV ×2 (14:43→21:30)
[2025-02-08] MEDS: SODIUM CHLORIDE 0.9% 1000 ML 1,000 ML 150 ML IV ×2 (14:43→18:57)
--- NOTE | 2025-02-08 15:19 | XR_ITS ---
Examination: AP chest single view TECHNIQUE: Sitting portable AP chest single view Date and time: February 08, 2025 1546 hours Comparison February 08, 2025 INDICATIONS: Post orogastric tube placement FINDINGS: Orogastric tube in stomach satisfactory position Normal heart size CABG Prominent osteopenia IMPRESSION: Orogastric tube in the stomach satisfactory position
[2025-02-08 15:56] LABS: Allen Test Performed/OK; Base Excess 1 (-3-3); HCO3 25 mEq/L (20-26); Inspired Oxygen, FIO2 100 %; O2 Saturation 101 % (91-98); PCO2 39 mmHg (32.0-48.0); PO2 299 mmHg (83-108); Puncture Site Right Radial; pH, Arterial 7.42 (7.35-7.45)
--- NOTE | 2025-02-08 16:04 | PD.RESEVENT ---
Documentation for date of: 02/08/25 Event Note Event Note: Rapid response was called for the patient due to oxygen desaturation to 50%. Patient was put on high flow nasal cannula oxygen. Oxygen improved to 100% on max high flow. We weaned off the patient off oxygen as she was maintaining saturation of 100%. When evaluation patient was noticed to be [place] Coma Scale of 6 unable to protect her airway. Chest x-ray was negative, ABG showed oxygen saturation of 293, normal pH and CO2. Lactic acid was 5.1. We called the family, family came at bedside discussed extensively the options that are available for the patient explained the poor prognosis and her condition. I also spoke with the transfer nurse at [facility] she mentioned that the patient was recently discharged from the hospital and the neurosurgeon Dr. Ruben Wilcox MD Recommended for the patient palliative care due to the poor prognosis. She mentioned that because they are at full capacity she cannot call the neurosurgeon again to give him any updates about the patient at this time. Explained to the family the situation at the continue to keep the patient full code. For that reason patient was admitted upgraded to ICU for intubation and further treatment. - Patient's plan and care discussed with my attending, Dr. Maria Del Carmen Rayo MD Internal Medicine PGY-2
--- NOTE | 2025-02-08 16:05 | PC.SS ---
Rounding note: pending HLOC transfer.
--- NOTE | 2025-02-08 16:14 | PC.NURSE ---
Rapid Response called by manager frenchEunice after observing an acute decrease in patients oxygen saturation on vb net programmer. Patient continues to be on room air and labs and x-ray obtained. No change in patients status.
[2025-02-08 16:17] LABS: Basophils % (Auto) 0 % (0-2.5); Eosinophils % (Auto) 0 % (0-10); Hemoglobin 12.9 g/dL (12.0-16.0); Immature Granulocytes % (Auto) 2 % (0-0); Lymphocytes # (Auto) 0.8 Thou/mm3 (1.0-4.8); Lymphocytes % (Auto) 12 % (10-50); Mean Corpuscular HGB Conc 34.9 g/dl (31.0-37.0); Mean Corpuscular Hemoglobin 28.4 pg (25.0-35.0); Mean Corpuscular Volume 81 fL (80-100); Monocytes # (Auto) 0.5 Thou/mm3 (0.0-0.8); Monocytes % (Auto) 7 % (0-12); Neutrophils # (Auto) 5.5 Thou/mm3 (1.8-7.7); Neutrophils % (Auto) 80 % (37-80); Nucleated Red Blood Cell % 0 /100 WBC (0); Platelet Count 442 Thou/mm3 (140-440); RDW Standard Deviation 44.7 fL (36.4-46.3); Red Blood Count 4.55 Miln/mm3 (4.00-5.20)
[2025-02-08 16:22] LABS: Lactate (Lactic Acid) 5.1 mMol/L (0.4-2.0)
[2025-02-08 16:37] LABS: Anion Gap 17 (7-16); BUN/Creatinine Ratio 23 Ratio (12-20); Blood Urea Nitrogen 23 mg/dL (9-23); Calcium 8.6 mg/dL (8.3-10.6); Carbon Dioxide 21.8 mMol/L (20.0-31.0); Chloride 96 mMol/L (98-107); Estimated Creatinine Clearance 34.5 mL/min (>60); Osmolality,Calculated 292 (275-295); Sodium 135 mMol/L (136-145); eGFR 54 See Note
[2025-02-08 16:38] LABS: Glucose 446 mg/dL (74-106)
[2025-02-08 16:42] LABS: White Blood Count 8.5 Thou/mm3 (3.6-11.0)
[2025-02-08] MEDS: ETOMIDATE INJ 2 MG/ML VIAL 10 ML 20 MG IVP (17:32)
[2025-02-08] MEDS: ROCURONIUM INJ 10 MG/ML VIAL 10 ML 40 MG IVP (17:33)
--- NOTE | 2025-02-08 17:35 | XR_ITS ---
Examination: AP chest single view TECHNIQUE: AP portable semiupright chest single view Date and time: February 08, 2025 at 1751 hours Comparison February 08, 2025 1546 hours INDICATIONS: Hypoxic respiratory failure postintubation FINDINGS: Endotracheal tube tip 36 mm above the dariusz Orogastric tube in the stomach. Normal heart size CABG No aspiration pneumonia or pulmonary edema IMPRESSION: Endotracheal tube tip 3.6 cm above Dariusz
[2025-02-08] MEDS: MIDAZOLAM INJ 1 MG/ML VIAL 2 ML 2 MG IVP (17:39)
--- NOTE | 2025-02-08 17:46 | PD.RESPROC ---
Procedures Procedure Date / Time 02/08/25 1586 Intubation Indication(s): inability to protect airway Informed consent obtained: obtained from surrogate decision maker Time out done, and the following verified: correct patient, side and site, procedure, patient position and implants and/or equipment Sedative: etomidate Mg given: 20 Paralytic: rocuronium Mg given: 40 Laryngoscope: fiber optic video scope ET tube size: 7.5 ET tube uncuffed: No Tube secured depth (cm): 24 Tube secured location: teeth Tube placement confirmation: visualized tube passing through cords, equal breath sounds bilaterally, no breath sounds over epigastrium and confirmation by capnometry Patient tolerated procedure: well and no complications EBL(ml): 0 Additional comments: Mallampati Score I Cormack Lehane Grade I Endotracheal tube was easily passed on first attempt. Procedure discussed with my attending, Dr. Roy, and done under the supervision of ER Physician Dr. Membreno. Maricruz Delaney MD PGY-3
[2025-02-08] MEDS: fentaNYL 2,500 MCG/250 ML BAG 2,500 MCG/250 ML BAG IV (17:51)
[2025-02-08] MEDS: PROPOFOL 1,000 MG IVPB 1,000 MG/100 ML VIAL 2.041 MG IV (18:24)
[2025-02-08 18:27] LABS: Base Excess 1 (-3-3); HCO3 27 mEq/L (20-26); Inspired Oxygen, FIO2 100 %; O2 Saturation 101 % (91-98); PCO2 50 mmHg (32.0-48.0); PO2 500 mmHg (83-108); pH, Arterial 7.35 (7.35-7.45)
[2025-02-08 18:28] LABS: Allen Test Performed/OK; Puncture Site Left Radial
--- NOTE | 2025-02-08 18:29 | PC.NURSE ---
Pt. had a BP of 205/116 MD ordered for fentanyl to be increased and propofol to be started. Orders carried out.
[2025-02-08] MEDS: fentaNYL 2,500 MCG/250 ML BAG 2,500 MCG/250 ML BAG 7.5 MCG IV (18:47)
[2025-02-08 18:54] LABS: Lactate (Lactic Acid) 3.6 mMol/L (0.4-2.0)
--- NOTE | 2025-02-08 18:59 | PD.RESEVENT ---
Documentation for date of: 02/08/25 Event Note Event Note: Event note: Patient upgraded from floors to ICU for mechanical ventilation as patient was unable to protect airway with a GCS score of 7. Patient was started on mechanical ventilation with a tidal volume of 320 flow rate of 40 respiratory rate of 16, PEEP of 5 and FiO2 of 100. Given repeat ABG showing a pH of 7. 35, CO2 50, and O2 500 and HCO3 27-->RR increased to 18 and FiO2 40. ABG AM daily. Given meningioma and edema noted on MRI continue keppra and mexamethsone 4 mg IVP Q6HR. Systolic Blood pressure goal of 130. Metoprolol Tartrate 25 mg BID resumed and Labetolol 10 mg IV PRN for systolic BP >180. Fentanly 75 and Propofol 15. Continue to monitor blood pressure. Lispro sliding scale on board given moderate DKA. Additional Lispro 10 units X1 given bedside glucose of 349. Bedside glucose 1 hr and follow renal panel Q4HR. Monitor for anion gap to close and anion gap. Lactic Acid Q4HR. Monitor potassium. Resume NS @ 150. - The patient's plan was discussed with attending Dr. Roy. Nicole Heck MD PGY1 Internal Medicine
[2025-02-08 19:09] LABS: Reflex Lactate? Y
[2025-02-08 19:12] LABS: Albumin, Serum 4.2 gm/dL (3.4-4.8); Anion Gap 12 (7-16); BUN/Creatinine Ratio 24 Ratio (12-20); Blood Urea Nitrogen 24 mg/dL (9-23); Calcium 8.6 mg/dL (8.3-10.6); Calcium (Corrected) 8.6 mg/dL (8.5-10.1); Carbon Dioxide 23.9 mMol/L (20.0-31.0); Chloride 98 mMol/L (98-107); Estimated Creatinine Clearance 34.5 mL/min (>60); Glucose 384 mg/dL (74-106); Osmolality,Calculated 288 (275-295); Phosphorous 3.1 mg/dL (2.4-5.1); Potassium 3.8 mMol/L (3.4-5.1); Sodium 134 mMol/L (136-145); eGFR 54 See Note
[2025-02-08] MEDS: INSULIN LISPRO (AdmeLOG) 1 UNIT/0.01 ML UNIT 10 UNIT SC (19:25)
--- NOTE | 2025-02-08 19:46 | XR_ITS ---
Examination: CT brain head without contrast. 2-D sagittal coronal reconstructions Date and time of exam:February 08, 20252024 hours Comparison February 07, 2025 INDICATIONS: Altered mental status today CTDI: vol (mGy):51 DLP: (mGycm):967 Technique: Multiple CT axial sections of the brain have been obtained, 5 mm slice thickness. Contrast has not been administered. 2-D sagittal, coronal reconstructions have been obtained Low dose protocols were performed. One or more of the following dose reduction techniques were used; automated exposure control, adjustment of the mA and/or KV according to patient size, use of iterative reconstruction technique. Findings: Again noted right frontal convexity 27 mm tumor mass with surrounding frontal edema and stable mass effect upon the right frontal horn Mild ventricular enlargement No interval hemorrhage Fourth ventricle midline IMPRESSION: No change in right frontal convexity tumor mass with surrounding frontal edema and stable mass effect upon the right frontal horn No interval acute hemorrhage
[2025-02-08 21:16] LABS: Lactate (Lactic Acid) 4.4 mMol/L (0.4-2.0)
[2025-02-08] MEDS: ATORVASTATIN CALCIUM 20 MG TABLET 40 MG PO (21:29)
[2025-02-08] MEDS: METOPROLOL TARTRATE 25 MG TABLET PO (21:29)
[2025-02-08 21:30] LABS: Albumin, Serum 4.1 gm/dL (3.4-4.8); Anion Gap 14 (7-16); BUN/Creatinine Ratio 29 Ratio (12-20); Blood Urea Nitrogen 29 mg/dL (9-23); Calcium 9.5 mg/dL (8.3-10.6); Calcium (Corrected) 9.5 mg/dL (8.5-10.1); Carbon Dioxide 24.5 mMol/L (20.0-31.0); Chloride 95 mMol/L (98-107); Estimated Creatinine Clearance 34.5 mL/min (>60); Glucose 352 mg/dL (74-106); Osmolality,Calculated 286 (275-295); Phosphorous 3.5 mg/dL (2.4-5.1); Potassium 3.8 mMol/L (3.4-5.1); Sodium 133 mMol/L (136-145); eGFR 54 See Note
[2025-02-08 21:50] LABS: Reflex Lactate? Y
[2025-02-09] VITALS (76 sets, daily range): BP systolic 109–174; BP diastolic 57–104; PULSE 49–90; RESP 4–96; TEMP 35.5–36.2; O2SAT 98–100; BMI 23.8; BMI 23.9
[2025-02-09 00:11] LABS: Reflex Lactate? Y
--- NOTE | 2025-02-09 00:20 | RESP.EEG ---
EEG completed and ready for MD to review
--- NOTE | 2025-02-09 00:21 | PD.RESPRO ---
Documentation for date of: 02/09/25 Subjective Subjective Interval history: Pt examined at bedside today. No acute overnight events. Family was spoken with at bedside who continues to want FULL CODE and full treatment. Family did state they wanted more tests and explanations for patient's prognosis. They are wondering if pt is going to get further imaging. Exam Vital Signs Temp Pulse Resp BP Pulse Ox O2 Del Method O2 Flow Rate 96 F L 57 L 18 120/66 100 Oxy Mask 16 02/09/25 00:00 02/09/25 00:00 02/09/25 00:00 02/09/25 00:00 02/09/25 00:00 02/08/25 16:00 02/08/25 16:00 FiO2 100 02/08/25 20:00 Narrative Exam General: AOx0, obtunded, GCS 11/15, saturating well on room air. Protecting airway. No drooling noted. Skin: Intact, no cyanosis or edema noted. HEENT: Atraumatic/normocephalic, JOAO, neck supple Heart: RRR, S1 and S2 without clicks or murmurs Lungs: Clear on auscultation bilaterally, no difficulty breathing Abdomen: Soft, nontender. Bowel sounds present . Vascular: Peripheral pulses palpable Neuro: Limited neuroexam due to mental status, no response to left upper extremity to noxious stimuli, able to withdraw from pain applied to right upper and lower extremity, left lower extremity. Free following left upper extremity. GCS 11/15. Objective Labs 02/09/25 05:40 02/09/25 05:40 Labs: Laboratory Results - last 24 hr 02/08/25 02/08/25 02/08/25 04:51 12:11 15:47 WBC 7.9 D RBC 5.02 Hgb 14.1 Hct 41.2 MCV 82 MCH 28.1 MCHC 34.2 RDW Std Deviation 44.5 Plt Count 380 D Neut % (Auto) 79 Lymph % (Auto) 17 Sterling % (Auto) 3 Eos % (Auto) 0 Baso % (Auto) 1 Neut # (Auto) 6.2 Lymph # (Auto) 1.3 Sterling # (Auto) 0.3 Eos # (Auto) 0.0 Baso # (Auto) 0.1 Immature Gran # (Auto) 0.08 H Absolute Nucleated RBC 0.00 Immature Gran % 1 H Nucleated RBC % 0 PT 11.1 INR 1.0 Puncture Site Right Radial ABG pH 7.42 ABG pCO2 39 ABG pO2 299 H ABG HCO3 25 ABG O2 Saturation 101 H ABG Base Excess 1 VBG pH 7.46 VBG pCO2 26 L VBG pO2 125 H VBG O2 Sat (Laura) 100 H VBG Base Excess -4 L FiO2 100 Sodium 136 134 L Potassium 3.6 3.8 Chloride 95 L 94 L Carbon Dioxide 24.0 19.5 L Anion Gap 17 H 21 H BUN 17 22 Creatinine 0.7 0.9 Estim Creat Clear Calc 49.3 L 38.3 L eGFR > 60 > 60 BUN/Creatinine Ratio 24 H 24 H Glucose 367 H D 499 H* D Calculated Osmolality 288 293 Lactic Acid Calcium 8.9 8.6 Corrected Calcium 8.6 Phosphorus 3.5 4.7 Magnesium 2.0 Total Bilirubin 0.6 Direct Bilirubin 0.2 AST 16 ALT 13 Alkaline Phosphatase 162 H Total Protein 6.7 Albumin 4.2 4.0 Triglycerides 71 Cholesterol 142 LDL Cholesterol, Calc 81 HDL Cholesterol 47 Cholesterol/HDL Ratio 3.0 L Beta-Hydroxybutyrate/Acetoacetate 4.4 H TSH 0.66 02/08/25 02/08/25 02/08/25 16:02 18:16 18:37 WBC 8.5 RBC 4.55 Hgb 12.9 Hct 37.0 MCV 81 MCH 28.4 MCHC 34.9 RDW Std Deviation 44.7 Plt Count 442 H D Neut % (Auto) 80 Lymph % (Auto) 12 Sterling % (Auto) 7 Eos % (Auto) 0 Baso % (Auto) 0 Neut # (Auto) 5.5 Lymph # (Auto) 0.8 L Sterling # (Auto) 0.5 Eos # (Auto) 0.0 Baso # (Auto) 0.0 Immature Gran # (Auto) 0.10 H Absolute Nucleated RBC 0.00 Immature Gran % 2 H Nucleated RBC % 0 PT INR Puncture Site Left Radial ABG pH 7.35 ABG pCO2 50 H D ABG pO2 500 H D ABG HCO3 27 H ABG O2 Saturation 101 H ABG Base Excess 1 VBG pH VBG pCO2 VBG pO2 VBG O2 Sat (Laura) VBG Base Excess FiO2 100 Sodium 135 L 134 L Potassium 4.0 3.8 Chloride 96 L 98 Carbon Dioxide 21.8 23.9 Anion Gap 17 H 12 BUN 23 24 H Creatinine 1.0 1.0 Estim Creat Clear Calc 34.5 L 34.5 L eGFR 54 L 54 L BUN/Creatinine Ratio 23 H 24 H Glucose 446 H* D 384 H D Calculated Osmolality 292 288 Lactic Acid 5.1 H* 3.6 H Calcium 8.6 8.6 Corrected Calcium 8.6 Phosphorus 3.1 Magnesium Total Bilirubin Direct Bilirubin AST ALT Alkaline Phosphatase Total Protein Albumin 4.2 Triglycerides Cholesterol LDL Cholesterol, Calc HDL Cholesterol Cholesterol/HDL Ratio Beta-Hydroxybutyrate/Acetoacetate TSH 02/08/25 20:53 WBC RBC Hgb Hct MCV MCH MCHC RDW Std Deviation Plt Count Neut % (Auto) Lymph % (Auto) Sterling % (Auto) Eos % (Auto) Baso % (Auto) Neut # (Auto) Lymph # (Auto) Sterling # (Auto) Eos # (Auto) Baso # (Auto) Immature Gran # (Auto) Absolute Nucleated RBC Immature Gran % Nucleated RBC % PT INR Puncture Site ABG pH ABG pCO2 ABG pO2 ABG HCO3 ABG O2 Saturation ABG Base Excess VBG pH VBG pCO2 VBG pO2 VBG O2 Sat (Laura) VBG Base Excess FiO2 Sodium 133 L Potassium 3.8 Chloride 95 L Carbon Dioxide 24.5 Anion Gap 14 BUN 29 H Creatinine 1.0 Estim Creat Clear Calc 34.5 L eGFR 54 L BUN/Creatinine Ratio 29 H Glucose 352 H Calculated Osmolality 286 Lactic Acid 4.4 H* Calcium 9.5 Corrected Calcium 9.5 Phosphorus 3.5 Magnesium Total Bilirubin Direct Bilirubin AST ALT Alkaline Phosphatase Total Protein Albumin 4.1 Triglycerides Cholesterol LDL Cholesterol, Calc HDL Cholesterol Cholesterol/HDL Ratio Beta-Hydroxybutyrate/Acetoacetate TSH ABG Interpretation ABG results: 02/08/25 02/08/25 02/08/25 12:11 15:47 18:16 ABG pH 7.42 7.35 ABG pCO2 39 50 H D ABG pO2 299 H 500 H D ABG HCO3 25 27 H ABG O2 Saturation 101 H 101 H ABG Base Excess 1 1 VBG pH 7.46 VBG pCO2 26 L VBG pO2 125 H VBG Base Excess -4 L Quality Measures Quality Measures VTE prophylaxis Advance care planning discussed with:: patient Assessment & Plan Assessment Current Active Medications: Generic Name Dose Route Start Last Admin Trade Name Freq PRN Reason Stop Dose Admin Acetaminophen 650 mg 02/08/25 01:36 Acetaminophen 325 Mg Tablet PO 03/10/25 01:35 Q6H PRN PAIN OR FEVER > 101 Atorvastatin Calcium 40 mg 02/08/25 21:00 02/08/25 21:29 Atorvastatin Calcium 20 Mg Tablet PO 03/10/25 20:59 40 mg HS ORALIA Administration Clopidogrel Bisulfate 75 mg 02/08/25 09:00 02/08/25 10:45 Clopidogrel Bisulfate 75 Mg Tablet PO 03/10/25 08:59 Not Given QDAY ORALIA Dexamethasone Sodium Phosphate 4 mg 02/08/25 06:00 02/08/25 17:58 Dexamethasone Sod Phos Inj 4 Mg/Ml Vial IVP 03/10/25 05:59 4 mg Q6HR ORALIA Administration Protocol Dextrose 25 ml 02/08/25 01:40 Dextrose 50%-Water Inj 50 Ml Syringe IV 03/10/25 01:39 Q15MIN PRN BG 50-70 responsive npo pt Dextrose 50 ml 02/08/25 01:40 Dextrose 50%-Water Inj 50 Ml Syringe IV 03/10/25 01:39 Q15MIN PRN BG <50 OR BG <70 & pt unresponsive Enoxaparin Sodium 40 mg 02/09/25 09:00 Enoxaparin Sod Inj 40 Mg/0.4 Ml Syringe SC 02/23/25 08:59 QDAY ORALIA Glucagon 1 mg 02/08/25 01:40 Glucagon Inj 1 Mg Vial IM Q15MIN PRN BG <70, and no IV access Piperacillin/Tazobactam/Dextrose 3.375 gm in 50 mls @ 12.5 mls/hr 02/08/25 22:00 02/08/25 21:30 Zosyn IV 02/15/25 21:59 12.5 mls/hr Q8HR ORALIA Administration Sodium Chloride 1,000 mls @ 150 mls/hr 02/08/25 14:15 02/08/25 18:57 Ns IV 03/10/25 14:12 150 mls/hr .Q6H40M ORALIA Administration Norepinephrine/Dextrose 8 mg in 250 mls @ 6.379 mls/hr 02/08/25 17:06 Levophed In D5w 8mg/250ml IV 03/10/25 17:05 .Q24H PRN PER PROTOCOL Protocol 0.05 MCG/KG/MIN Propofol 1,000 mg in 100 mls @ 2.041 mls/hr 02/08/25 17:12 02/09/25 00:00 Diprivan Ivpb IV 03/10/25 17:11 0 mcg/kg/min .Q24H PRN 0 mls/hr PER PROTOCOL Titration Protocol 5 MCG/KG/MIN Fentanyl Citrate 2,500 mcg in 250 mls @ 2.5 mls/hr 02/08/25 18:44 02/09/25 00:00 Sublimaze Inj 2,500 Mcg/250 Ml Bag IV 02/13/25 18:43 75 mcg/hr .Q24H PRN 7.5 mls/hr PER PROTOCOL Titration Protocol 25 MCG/HR Insulin Human Lispro 0 unit 02/08/25 14:15 02/08/25 22:15 Insulin Lispro (Admelog) 1 Unit/0.01 Ml Unit SC 03/10/25 14:14 1 unit Q4H ORALIA Administration Protocol Labetalol HCl 10 mg 02/08/25 18:57 Labetalol Inj 5 Mg/Ml Vial 20 Ml IVP 03/10/25 01:39 Q6HR PRN SBP > 180 Levetiracetam 1,000 mg 02/08/25 09:00 02/08/25 21:28 Levetiracetam Inj 100 Mg/Ml Vial 5ml IVP 03/10/25 08:59 1,000 mg Q12HR ORLAIA Administration Metoprolol Tartrate 25 mg 02/08/25 09:00 02/08/25 21:29 Metoprolol Tartrate 25 Mg Tablet PO 03/10/25 08:59 25 mg BID ORALIA Administration Ondansetron HCl 4 mg 02/08/25 01:36 Ondansetron Inj 2 Mg/Ml Inj 2 Ml IV 03/10/25 01:35 Q6H PRN NAUSEA OR VOMITING Protocol Sennosides 2 tab 02/08/25 01:36 Senna Tablet PO 03/10/25 01:35 BID PRN CONSTIPATION Protocol Plan vPlan 89-year-old female Patient has a past medical history of meningioma, CVA, CABG, hypertension, hyperlipidemia, type 2 diabetes mellitus, Brought in by EMS from rehab facility, for altered mental status. #Acute encephalopathy #Cerebral edema secondary to meningioma #Acute stroke rule out #DKA MRI negative for acute stroke Imaging shows 10mm mass effect and 25 mm size for meningoma Spoke with Neurosurgery at [facility] who does not recommend admission at this time Spoke with neurosurgery at [facility], recommending medical management, tx of UTI and seizures Pt will not be intubated at this time, however may need intubation as pt cannot protect airway at this time Glucose continues to be elevated 400s, pt continues to get acidotic, however will not initiate insulin drip at this time Plan: ? ICU consulted, appreciate recs ? Subq Insulin with glucose checks q4h ? Normal Saline 1L bolus ? Scheduled IV dexamethasone 4 mg every 6 hours ? Neurology consult with Dr. Lopez is placed, appreciate recommendations ? Continue clopidogrel 75 mg ? Aspiration precautions, currently n.p.o., speech therapy referral made. ? Consider NG tube for medications and feeding, if patient's mental status continues to decline persistently. ? Continue Levetriacitam 1000mg bid #UTI Previous hx of ESBL ? IV Zosyn ? Follow urine culture #History of diabetes mellitus ?sliding scale insulin every 6 hourly, Patient is currently n.p.o., ?Elevated blood glucose likely worse due to steroids ?Follow A1c #Hypertensive urgency There was concern for stroke,due to patient's clinical presentation, pending neurology recommendations, ?IV labetalol 10 mg as needed for SBP more than 185 ?Pending med rec reconciliation #History of CVA #History of CABG ? Continue clopidogrel 75 mg daily ? Continue metoprolol ? Continue atorvastatin #Health Maintenance Disposition: Telemetry DVT prophylaxis: Holding GI prophylaxis: Not Indicated at this time Diet: NPO CODE STATUS: Full Code Patient seen and care discussed with my attending physician, Dr. Maria Del Carmen Teague, PGY-1 Attending Provider Attestation/Addendum I reviewed labs, imaging, EKG, home medications and prior available records. Face to face evaluation was performed by me. I have personally examined the patient and discussed assessment and plan with the IM team. I reviewed the resident note and agree with the plan with exceptions as below. Acute encephalopathy Meningioma Brain edema Acute UTI Moderate DKA Goals of care discussion Discussed with transfer nurse: Contacted multiple transfer centers. Declined either due to bed capacity or due to not being surgical candidate. Discussed with family Mental status did not improve. Likely in the setting of acute UTI versus DKA versus brain edema Rapid response was called for acute hypoxia. See event note. Chest x-ray did not show any pulmonary edema Patient developed DKA. Discussed with ICU: Initially recommended subcutaneous insulin every 4 hours and frequent fingersticks every 2 hours Started IV dexamethasone 4 mg every 6 hours. Started Keppra for seizure prophylaxis. Neurology consulted Broadened antibiotics to IV Zosyn. Follow-up urine culture Discussed goals of care with family: They wanted her to be full code and fully treated. Given the concern of not being able to protect her airways, decision was made to upgrade the patient to the ICU and intubate her.
[2025-02-09 00:53] LABS: Lactate (Lactic Acid) 2.3 mMol/L (0.4-2.0)
[2025-02-09] MEDS: DEXAMETHASONE SOD PHOS INJ 4 MG/ML VIAL IVP ×4 (01:00→18:08)
[2025-02-09 01:25] LABS: Albumin, Serum 3.4 gm/dL (3.4-4.8); Anion Gap 11 (7-16); BUN/Creatinine Ratio 31 Ratio (12-20); Blood Urea Nitrogen 28 mg/dL (9-23); Calcium 7.9 mg/dL (8.3-10.6); Calcium (Corrected) 8.4 mg/dL (8.5-10.1); Carbon Dioxide 24.9 mMol/L (20.0-31.0); Chloride 102 mMol/L (98-107); Creatinine (Component) 0.9 mg/dL (0.6-1.3); Estimated Creatinine Clearance 38.3 mL/min (>60); Glucose 236 mg/dL (74-106); Osmolality,Calculated 289 (275-295); Phosphorous 3.3 mg/dL (2.4-5.1); Potassium 4.4 mMol/L (3.4-5.1); Sodium 138 mMol/L (136-145); eGFR > 60 See Note
[2025-02-09] MEDS: INSULIN LISPRO (AdmeLOG) 1 UNIT/0.01 ML UNIT SC ×3 (02:29→18:08)
[2025-02-09] MEDS: SODIUM CHLORIDE 0.9% 1000 ML 1,000 ML 150 ML IV (02:32)
--- NOTE | 2025-02-09 02:34 | EVENTNT_ITS ---
Documentation for date of: 02/09/25 Event Note Event Note: Spoke to [facility] neurosurgery Dr. Azul who had been following with the case since initiation of transfer process. Once he was aware that there was a change in the clinical picture for the patient with of the intubation for protection of airway with decline in patient's GCS he suggested that a repeat head CT is conducted. After repeat head CT shows No change in the right frontal convexity tumor mass and surrounding frontal edema with stable mass effect upon the right frontal horn he stated that it does not appears to be requiring emergent neurosurgical intervention. He suspects a secondary pathology may be at work and recommended EEG so neurology was consulted for EEG order. EEG has been done and is pending read. Patient has developed some bradycardia with her heart rate being in normal sinus rhythm and rate of 50s. Blood pressure has been stable in the 130s range. He states that if we still want to pursue transfer he would recommend transfer for neurology and ICU services instead of neurosurgical. He was very respectful and kind and stated that we can reconsult with them at any point if we feel that patient requires emergent transfer. I also explained to them that currently I do not feel that the patient requires hypertonic saline or mannitol for intracranial hypertension given the fact that radiology is reading that the mass and edema is stable for which he agreed. We will continue with our current management with steroids and hyperventilation. We will reinitiate transfer process if patient suffers decline that requires emergent intervention from services that are not available at our hospital. Plan of care discussed with supervising attending Dr. Sandip Romo M.D. PGY-3
[2025-02-09 03:53] LABS: Reflex Lactate? Y
[2025-02-09 04:47] LABS: Base Excess 2 (-3-3); HCO3 26 mEq/L (20-26); Inspired Oxygen, FIO2 40 %; O2 Saturation 101 % (91-98); PCO2 42 mmHg (32.0-48.0); PO2 187 mmHg (83-108); pH, Arterial 7.41 (7.35-7.45)
[2025-02-09 04:49] LABS: Allen Test Performed/OK; Puncture Site Left Radial
--- NOTE | 2025-02-09 06:00 | XR_ITS ---
Examination: AP chest single view TECHNIQUE: AP portable semiupright chest single view Date and time: February 09, 2025 0513 hours Comparison February 08, 2025 INDICATIONS: Hypoxic respiratory failure this week, postintubation FINDINGS: Endotracheal tube tip 2.6 cm above dariusz. Normal heart size. CABG. No interval pneumonia or pulmonary edema. The orogastric tube is in the stomach, the tip is below the level of the film. IMPRESSION: Endotracheal tube tip 2.6 cm above Dariusz No pneumonia or pulmonary edema
[2025-02-09 06:11] LABS: Basophils # (Auto) 0.1 Thou/mm3 (0.0-0.2); Basophils % (Auto) 0 % (0-2.5); Eosinophils % (Auto) 0 % (0-10); Hematocrit 40.9 % (36.0-46.0); Hemoglobin 13.8 g/dL (12.0-16.0); Immature Granulocytes % (Auto) 1 % (0-0); Immature Granulocytes Auto 0.16 Thou/mm3 (0.00-0.00); Lymphocytes # (Auto) 1.4 Thou/mm3 (1.0-4.8); Lymphocytes % (Auto) 10 % (10-50); Mean Corpuscular HGB Conc 33.7 g/dl (31.0-37.0); Mean Corpuscular Hemoglobin 28.2 pg (25.0-35.0); Mean Corpuscular Volume 84 fL (80-100); Monocytes # (Auto) 1.4 Thou/mm3 (0.0-0.8); Monocytes % (Auto) 10 % (0-12); Neutrophils % (Auto) 79 % (37-80); Nucleated Red Blood Cell % 0 /100 WBC (0); Platelet Count 386 Thou/mm3 (140-440); RDW Standard Deviation 45.8 fL (36.4-46.3); Red Blood Count 4.89 Miln/mm3 (4.00-5.20); White Blood Count 13.9 Thou/mm3 (3.6-11.0)
[2025-02-09] MEDS: PIPER/TAZO 3.375 GM PREMIX 3.375 GM/50 ML BAG IV ×3 (06:25→21:17)
[2025-02-09 06:53] LABS: Alanine Aminotransferase 18 U/L (10-49); Albumin, Serum 3.7 gm/dL (3.4-4.8); Albumin/Globulin Ratio 1.8 (1.2-2.2); Alkaline Phosphatase 137 U/L (46-116); Anion Gap 16 (7-16); Aspartate Amino Transferase 42 U/L (0-34); BUN/Creatinine Ratio 39 Ratio (12-20); Bilirubin,Total 0.4 mg/dL (0.3-1.2); Blood Urea Nitrogen 31 mg/dL (9-23); Calcium 8.3 mg/dL (8.3-10.6); Calcium (Corrected) 8.5 mg/dL (8.5-10.1); Carbon Dioxide 20.7 mMol/L (20.0-31.0); Chloride 102 mMol/L (98-107); Creatinine (Component) 0.8 mg/dL (0.6-1.3); Estimated Creatinine Clearance 37.7 mL/min (>60); Globulin 2.1 gm/dL (2.3-3.5); Glucose 174 mg/dL (74-106); Magnesium 2.1 mg/dL (1.6-2.6); Osmolality,Calculated 288 (275-295); Phosphorous 3.5 mg/dL (2.4-5.1); Potassium 4.2 mMol/L (3.4-5.1); Sodium 139 mMol/L (136-145); Total Protein 5.8 gm/dL (5.7-8.2); eGFR > 60 See Note
--- NOTE | 2025-02-09 08:36 | PC.CC ---
Addendum entered by Dulce Jaramillo RN 02/09/25 13:26: 1302: received call from Dr. Rojas and he stated [facility] transfer is canceled. Addendum entered by Dulce Jaramillo RN 02/09/25 11:36: [id number]: received call from Blaine ORTIZ, [facility] transfer is canceled. Addendum entered by Dulce Jaramillo RN 02/09/25 08:38: correction: correct time of call is 0745am Original Note: 0845: called and spoke to Dr. Rojas to confirm [facility] transfer status, he stated he will speak to his attending to clarify and call me back.
[2025-02-09 08:46] LABS: Albumin, Serum 3.4 gm/dL (3.4-4.8); Anion Gap 9 (7-16); BUN/Creatinine Ratio 35 Ratio (12-20); Blood Urea Nitrogen 28 mg/dL (9-23); Calcium 7.9 mg/dL (8.3-10.6); Calcium (Corrected) 8.4 mg/dL (8.5-10.1); Carbon Dioxide 23.8 mMol/L (20.0-31.0); Chloride 105 mMol/L (98-107); Creatinine (Component) 0.8 mg/dL (0.6-1.3); Estimated Creatinine Clearance 37.7 mL/min (>60); Glucose 187 mg/dL (74-106); Osmolality,Calculated 286 (275-295); Phosphorous 3.4 mg/dL (2.4-5.1); Potassium 3.9 mMol/L (3.4-5.1); Sodium 138 mMol/L (136-145); eGFR > 60 See Note
[2025-02-09] MEDS: levETIRAcetam INJ 100 MG/ML VIAL 5ML 1000 MG IVP ×2 (10:16→21:15)
[2025-02-09] MEDS: ENOXAPARIN SOD INJ 40 MG/0.4 ML SYRINGE SC (10:16)
[2025-02-09] MEDS: PANTOPRAZOLE INJ 40 MG VIAL IVP (10:16)
[2025-02-09] MEDS: METOPROLOL TARTRATE 25 MG TABLET PO ×2 (10:17→21:16)
[2025-02-09] MEDS: CLOPIDOGREL BISULFATE 75 MG TABLET PO (10:17)
--- NOTE | 2025-02-09 10:31 | ESPR_ITS ---
Documentation for date of: 02/09/25 Subjective Subjective Interval history: CC: Altered Mental Status *PMH history collected from patient's daughter, Jennifer, and chart review. Patient is 89-year-old female with a past medical history of meningioma, CVA, CABG, hypertension, hyperlipidemia, type 2 diabetes mellitus, Brought in by EMS from rehab facility, for altered mental status. Spoke to patient's daughter Jennifer, who stated that she she had visited the patient last night, at the facility at 8 PM, and the patient was at her baseline mental status, conversational alert and oriented x 3 and able to move her extremities without any weakness. At the time of evaluation, the patient is found to be obtunded, responsive only to pain full stimuli, no movement elicited on the left upper extremity, also free following left upper extremity, per daughter, nursing staff from rehab facility told even at 6 AM patient's mental status had declined. LWK 8 pm. In the ER initial vitals were 213/97, heart rate 93/min, temperature 102F, CBC showed WBC 5.2, hemoglobin 13.6, platelet 24, normal coagulation profile, mild hyponatremia sodium 133, normal renal function, lactic acid 1.7, magnesium 1.3, which was repleted, normal liver function, mild alkaline phosphatase elevation, negative Pro-Blas. Urinalysis showed UTI. The patient was given IV fluid bolus, ceftriaxone, IV magnesium, subcu insulin, and acetaminophen IV. ER provider, initially tried to transfer the patient back to [place], where she was followed for her meningioma and evaluated by neurosurgeon, eventually discharged to rehab facility and deemed poor prognosis, no surgical intervention was advised. But transfer was declined due to capacity. ER provider spoke to neurologist Dr. Lopez, who recommended starting the patient on IV steroids for cerebral edema. Head CT showed frontal edema, with mass effect, depressed and in the frontal horn, 10 mm compared to 7 mm on January 06, 2025. Head CTA was done which was negative for large vessel occlusion. Patient will be admitted to medical floor for for further observation management. Past medical history: History of meningioma?was recently admitted in [place] for neurosurgical evaluation, neurosurgery recommended conservative management due to poor prognosis, history of CABG, history of CVA, history of hyperlipidemia, history of type 2 diabetes mellitus. Social history: N/A 02/08/2025: ICU team consulted given DKA and acute encephalopathy and soft tissue tumor mass w/ calcified rim and transverse dimension of mass 27 mm producing mass effect with edema noted secondary to UTI. Concern that patient could not protect airway. [facility] [place] after being transferred directly from the ER for management of meningioma with an accepting neurosurgeon physician. Family at bedside is unsure of definitive diagnosis given at hospital in [place]. Explained overall poor prognosis given meningioma noted on CT and MRI with mass effect from edema. Recommendations are to treat underlying conditions of DKA and UTI. Goals of care discussion with daughters present at bedside, family would like additional time to take home and CODE STATUS. 02/09/2025: Overnight, minimal urine outpt over the last 12 hours. Repeat Renal Panel at 1 PM. Continue to monitor urine output. Propofol 20 wean off near midnight and Fentanly decreased from 75-->25. Diectician consulted for tube feedings, plan to start tube feedings today. Despite speaking to a total of 3 neurosurgeons, no transfer planned or acute surgical intervention recommended at this time. Plan for spontaneous breathing trial. Bradycardia HR 50-60, if worsen switch Metoprolol tartrate to a calcium channel ruth ann. Exam Vital Signs Temp Pulse Resp BP Pulse Ox O2 Del Method O2 Flow Rate 96.8 F 63 8 L 153/74 H 100 Mechanical Ventilation 16 02/09/25 08:00 02/09/25 10:17 02/09/25 10:15 02/09/25 10:17 02/09/25 10:15 02/09/25 08:00 02/09/25 09:00 FiO2 35 02/09/25 09:43 Narrative Exam General Appearance: Alert & Oriented X0, thin female who is lying in bed in no acute distress HEENT: Skull symmetrical and atraumatic. Conjunctivae pale pink and moist. Pupils equal, round, and sluggish to reactive to light. No deviation noted on physical exam. External ear without lesion or discharge. Oral mucosa continues to appear dry. Cardio: Normal Rate and Rhythm with S1 and S2 heart sounds. No murmurs or extra heart sounds auscultated. No bruits on carotid auscultation. No peripheral edema or cyanosis. Lungs: Symmetric with limited expansion. Chest and back non-tender. Breath sounds vesicular without crackles, wheezing or rhonchi Abdomen: Non-tender, Non-distended, Normal Reactive Bowel Sounds Neuro: Yes Alert, No cooperative, NO oriented to person, No place, and No time. Slurred. CN grossly intact. Upper motor strength 5/5, tugging at restrains and Lower motor strength 3/5. Sensation intact. Objective Labs 02/09/25 05:40 02/09/25 08:00 Labs: Laboratory Results - last 24 hr 02/08/25 02/08/25 02/08/25 12:11 15:47 16:02 WBC 8.5 RBC 4.55 Hgb 12.9 Hct 37.0 MCV 81 MCH 28.4 MCHC 34.9 RDW Std Deviation 44.7 Plt Count 442 H D Neut % (Auto) 80 Lymph % (Auto) 12 Grayson % (Auto) 7 Eos % (Auto) 0 Baso % (Auto) 0 Neut # (Auto) 5.5 Lymph # (Auto) 0.8 L Grayson # (Auto) 0.5 Eos # (Auto) 0.0 Baso # (Auto) 0.0 Immature Gran # (Auto) 0.10 H Absolute Nucleated RBC 0.00 Immature Gran % 2 H Nucleated RBC % 0 Puncture Site Right Radial ABG pH 7.42 ABG pCO2 39 ABG pO2 299 H ABG HCO3 25 ABG O2 Saturation 101 H ABG Base Excess 1 VBG pH 7.46 VBG pCO2 26 L VBG pO2 125 H VBG O2 Sat (Laura) 100 H VBG Base Excess -4 L FiO2 100 Sodium 134 L 135 L Potassium 3.8 4.0 Chloride 94 L 96 L Carbon Dioxide 19.5 L 21.8 Anion Gap 21 H 17 H BUN 22 23 Creatinine 0.9 1.0 Estim Creat Clear Calc 38.3 L 34.5 L eGFR > 60 54 L BUN/Creatinine Ratio 24 H 23 H Glucose 499 H* D 446 H* D Calculated Osmolality 293 292 Lactic Acid 5.1 H* Calcium 8.6 8.6 Corrected Calcium 8.6 Phosphorus 4.7 Magnesium Total Bilirubin AST ALT Alkaline Phosphatase Total Protein Albumin 4.0 Globulin Albumin/Globulin Ratio Beta-Hydroxybutyrate/Acetoacetate 4.4 H 02/08/25 02/08/25 02/08/25 18:16 18:37 20:53 WBC RBC Hgb Hct MCV MCH MCHC RDW Std Deviation Plt Count Neut % (Auto) Lymph % (Auto) Grayson % (Auto) Eos % (Auto) Baso % (Auto) Neut # (Auto) Lymph # (Auto) Grayson # (Auto) Eos # (Auto) Baso # (Auto) Immature Gran # (Auto) Absolute Nucleated RBC Immature Gran % Nucleated RBC % Puncture Site Left Radial ABG pH 7.35 ABG pCO2 50 H D ABG pO2 500 H D ABG HCO3 27 H ABG O2 Saturation 101 H ABG Base Excess 1 VBG pH VBG pCO2 VBG pO2 VBG O2 Sat (Laura) VBG Base Excess FiO2 100 Sodium 134 L 133 L Potassium 3.8 3.8 Chloride 98 95 L Carbon Dioxide 23.9 24.5 Anion Gap 12 14 BUN 24 H 29 H Creatinine 1.0 1.0 Estim Creat Clear Calc 34.5 L 34.5 L eGFR 54 L 54 L BUN/Creatinine Ratio 24 H 29 H Glucose 384 H D 352 H Calculated Osmolality 288 286 Lactic Acid 3.6 H 4.4 H* Calcium 8.6 9.5 Corrected Calcium 8.6 9.5 Phosphorus 3.1 3.5 Magnesium Total Bilirubin AST ALT Alkaline Phosphatase Total Protein Albumin 4.2 4.1 Globulin Albumin/Globulin Ratio Beta-Hydroxybutyrate/Acetoacetate 02/09/25 02/09/25 02/09/25 00:23 04:41 05:40 WBC 13.9 H D RBC 4.89 Hgb 13.8 Hct 40.9 MCV 84 MCH 28.2 MCHC 33.7 RDW Std Deviation 45.8 Plt Count 386 D Neut % (Auto) 79 Lymph % (Auto) 10 Grayson % (Auto) 10 Eos % (Auto) 0 Baso % (Auto) 0 Neut # (Auto) 11.0 H Lymph # (Auto) 1.4 Grayson # (Auto) 1.4 H Eos # (Auto) 0.0 Baso # (Auto) 0.1 Immature Gran # (Auto) 0.16 H Absolute Nucleated RBC 0.00 Immature Gran % 1 H Nucleated RBC % 0 Puncture Site Left Radial ABG pH 7.41 ABG pCO2 42 ABG pO2 187 H D ABG HCO3 26 ABG O2 Saturation 101 H ABG Base Excess 2 VBG pH VBG pCO2 VBG pO2 VBG O2 Sat (Laura) VBG Base Excess FiO2 40 Sodium 138 139 Potassium 4.4 D 4.2 Chloride 102 102 Carbon Dioxide 24.9 20.7 Anion Gap 11 16 BUN 28 H 31 H Creatinine 0.9 0.8 Estim Creat Clear Calc 38.3 L 37.7 L eGFR > 60 > 60 BUN/Creatinine Ratio 31 H 39 H Glucose 236 H D 174 H D Calculated Osmolality 289 288 Lactic Acid 2.3 H Calcium 7.9 L D 8.3 Corrected Calcium 8.4 L 8.5 Phosphorus 3.3 3.5 Magnesium 2.1 Total Bilirubin 0.4 AST 42 H ALT 18 Alkaline Phosphatase 137 H D Total Protein 5.8 Albumin 3.4 D 3.7 Globulin 2.1 L Albumin/Globulin Ratio 1.8 Beta-Hydroxybutyrate/Acetoacetate 02/09/25 02/09/25 02/09/25 06:15 06:40 08:00 WBC RBC Hgb Hct MCV MCH MCHC RDW Std Deviation Plt Count Neut % (Auto) Lymph % (Auto) Grayson % (Auto) Eos % (Auto) Baso % (Auto) Neut # (Auto) Lymph # (Auto) Grayson # (Auto) Eos # (Auto) Baso # (Auto) Immature Gran # (Auto) Absolute Nucleated RBC Immature Gran % Nucleated RBC % Puncture Site ABG pH ABG pCO2 ABG pO2 ABG HCO3 ABG O2 Saturation ABG Base Excess VBG pH VBG pCO2 VBG pO2 VBG O2 Sat (Laura) VBG Base Excess FiO2 Sodium 138 Potassium 3.9 Chloride 105 Carbon Dioxide 23.8 Anion Gap 9 BUN 28 H Creatinine 0.8 Estim Creat Clear Calc 37.7 L eGFR > 60 BUN/Creatinine Ratio 35 H Glucose 187 H Calculated Osmolality 286 Lactic Acid 2.0 Calcium 7.9 L Corrected Calcium 8.4 L Phosphorus 3.4 Magnesium Total Bilirubin AST ALT Alkaline Phosphatase Total Protein Albumin 3.4 Globulin Albumin/Globulin Ratio Beta-Hydroxybutyrate/Acetoacetate 0.0 ABG Interpretation ABG results: 02/08/25 02/08/25 02/08/25 12:11 15:47 18:16 ABG pH 7.42 7.35 ABG pCO2 39 50 H D ABG pO2 299 H 500 H D ABG HCO3 25 27 H ABG O2 Saturation 101 H 101 H ABG Base Excess 1 1 VBG pH 7.46 VBG pCO2 26 L VBG pO2 125 H VBG Base Excess -4 L 02/09/25 04:41 ABG pH 7.41 ABG pCO2 42 ABG pO2 187 H D ABG HCO3 26 ABG O2 Saturation 101 H ABG Base Excess 2 VBG pH VBG pCO2 VBG pO2 VBG Base Excess Quality Measures Quality Measures VTE prophylaxis Advance care planning discussed with:: child Assessment & Plan Assessment Current Active Medications: Generic Name Dose Route Start Last Admin Trade Name Freq PRN Reason Stop Dose Admin Acetaminophen 650 mg 02/08/25 01:36 Acetaminophen 325 Mg Tablet PO 03/10/25 01:35 Q6H PRN PAIN OR FEVER > 101 Atorvastatin Calcium 40 mg 02/08/25 21:00 02/08/25 21:29 Atorvastatin Calcium 20 Mg Tablet PO 03/10/25 20:59 40 mg HS ORALIA Administration Clopidogrel Bisulfate 75 mg 02/08/25 09:00 02/09/25 10:17 Clopidogrel Bisulfate 75 Mg Tablet PO 03/10/25 08:59 75 mg QDAY ORALIA Administration Dexamethasone Sodium Phosphate 4 mg 02/08/25 06:00 02/09/25 06:25 Dexamethasone Sod Phos Inj 4 Mg/Ml Vial IVP 03/10/25 05:59 4 mg Q6HR ORALIA Administration Protocol Dextrose 25 ml 02/08/25 01:40 Dextrose 50%-Water Inj 50 Ml Syringe IV 03/10/25 01:39 Q15MIN PRN BG 50-70 responsive npo pt Dextrose 50 ml 02/08/25 01:40 Dextrose 50%-Water Inj 50 Ml Syringe IV 03/10/25 01:39 Q15MIN PRN BG <50 OR BG <70 & pt unresponsive Enoxaparin Sodium 40 mg 02/09/25 09:00 02/09/25 10:16 Enoxaparin Sod Inj 40 Mg/0.4 Ml Syringe SC 02/23/25 08:59 40 mg QDAY ORALIA Administration Glucagon 1 mg 02/08/25 01:40 Glucagon Inj 1 Mg Vial IM Q15MIN PRN BG <70, and no IV access Piperacillin/Tazobactam/Dextrose 3.375 gm in 50 mls @ 12.5 mls/hr 02/08/25 22:00 02/09/25 06:25 Zosyn IV 02/15/25 21:59 12.5 mls/hr Q8HR ORALIA Administration Norepinephrine/Dextrose 8 mg in 250 mls @ 6.379 mls/hr 02/08/25 17:06 Levophed In D5w 8mg/250ml IV 03/10/25 17:05 .Q24H PRN PER PROTOCOL Protocol 0.05 MCG/KG/MIN Propofol 1,000 mg in 100 mls @ 2.041 mls/hr 02/08/25 17:12 02/09/25 00:00 Diprivan Ivpb IV 03/10/25 17:11 0 mcg/kg/min .Q24H PRN 0 mls/hr PER PROTOCOL Titration Protocol 5 MCG/KG/MIN Fentanyl Citrate 2,500 mcg in 250 mls @ 2.5 mls/hr 02/08/25 18:44 02/09/25 07:00 Sublimaze Inj 2,500 Mcg/250 Ml Bag IV 02/13/25 18:43 75 mcg/hr .Q24H PRN 7.5 mls/hr PER PROTOCOL Titration Protocol 25 MCG/HR Insulin Glargine 20 unit 02/09/25 21:00 Insulin Glargine (Lantus) 5 Unit/0.05 Ml (Per 5 Units) SC 03/11/25 20:59 HS ORALIA Insulin Human Lispro 0 unit 02/09/25 12:00 Insulin Lispro (Admelog) 1 Unit/0.01 Ml Unit SC 03/11/25 11:59 Q6HR ORALIA Protocol Labetalol HCl 10 mg 02/08/25 18:57 Labetalol Inj 5 Mg/Ml Vial 20 Ml IVP 03/10/25 01:39 Q6HR PRN SBP > 180 Levetiracetam 1,000 mg 02/08/25 09:00 02/09/25 10:16 Levetiracetam Inj 100 Mg/Ml Vial 5ml IVP 03/10/25 08:59 1,000 mg Q12HR ORALIA Administration Metoprolol Tartrate 25 mg 02/08/25 09:00 02/09/25 10:17 Metoprolol Tartrate 25 Mg Tablet PO 03/10/25 08:59 25 mg BID ORALIA Administration Ondansetron HCl 4 mg 02/08/25 01:36 Ondansetron Inj 2 Mg/Ml Inj 2 Ml IV 03/10/25 01:35 Q6H PRN NAUSEA OR VOMITING Protocol Pantoprazole Sodium 40 mg 02/09/25 09:00 02/09/25 10:16 Pantoprazole Inj 40 Mg Vial IVP 03/11/25 08:59 40 mg QDAY ORALIA Administration Sennosides 2 tab 02/08/25 01:36 Senna Tablet PO 03/10/25 01:35 BID PRN CONSTIPATION Protocol Plan Patient is 89-year-old female with a past medical history of meningioma, CVA, CABG, hypertension, hyperlipidemia, type 2 diabetes mellitus who was admitted on 02/07/2025 for further observation. Central Nervous System: Problem: Acute Encephalopathy, history of CVA DDX: likely secondary to mass producing lesion noted on CT scan with edema. Meninigioma noted on imagining per chart review in 2020. Left upper extremity decrease motor function likely secondary to mass effect on MCA. vs infectious cause from UTI leading to delirium vs Acedemia Dx: Head CT (02/07/2025): Again noted right frontal soft tissue tumor mass with calcified rim, transverse dimension 27 mm. Frontal edema is again depicted with additional mass effect depressing the right frontal horn, currently 10 mm compared to 7 mm on January 07, 2025. Head/Neck CTA: No significant neck arterial stenoses, No cerebral large vessel arterial occlusions, thrombus, Enhancing right frontal convexity mass most consistent with meningioma. Brain MRI w/ MRA: Negative for acute hemorrhage, Negative for acute infarct, and 25 mm right frontal convexity mass with extensive surrounding edema with depression of the right frontal horn secondary to the frontal edema RX: Dexamethasone 4 mg IVP Q6HR, Clopidogrel 75 mg qday, and Levetiracetam 1000 mg BID RRX: Neuro-surgery second consultation; per neurology recommendations systolic blood pressure 130, Neurology consulted, Dr. Bunn, consulted Cardiovascular: Problem: Hypertension DDX: Past medical CABG and CVA, per chart review TIA first noted in 2020. Dx: EKG Sinus rhythm RX: , Metroplolol 25 mg PO BID, and Labetalol 10 mg IVP RRX: Monitor Blood pressure, consider Hydralazine if HR <60, History CABG and Hyperlipedemia -continue Atorvastatin 40 mg PO HS Bradycardia Patient's HR ranging in 50-60s likely secondary to age related changes vs medication induced vs meningoma edema related. -Continue to monitor, off sedation Respiratory: Problem: Acute Hypoxic respiratory failure, required mechanical ventilation DDX: Patient experienced a rapid response secondary to hypoxia, spO2 50% and GCS of 6, thus required mechanical ventilation. Dx: Mechanical Ventilation: MV 5.70, VT 320, Flow 40, RR 18, PEEP 5, FiO30 RX: ABG AM, Chest X-Ray AM RRX: SBT in the morning Gastroenterology: Problem: Stable DDX: Dx: RX: NG tube, Start tube feeding: Vital 1.2 at 20 ml/hr via NG tube by pump. Advance 10 ml every 8 hours to goal rate of 45 ml/hr X 24 hrs. If no IV fluids, water flushes of 30 ml/hr. RRX: GI: Protonix. Renal: Problem: DESIREE, improved DDX: Mild DESIREE on admission when patient arrived to the ICU with Cr level >0.3 and change in urine output overnight 50 cc over 12 hour period. Likely secondary to Pre-renal given BUN/Cr >20 but intrinisic injury can not be ruled out. Dx: RX: start tube feeding with water flushes. RRX: Problem: Pseudohyponatremia, resolved DDX: Corrected sodium for hyperglycemia, 140 with osmolarity of 293 hyperglycemia. Dx: RX: RRX: Heme: Problem: Leukocytosis DDX: Likely secondary to UTI E.coli ESBL vs reactive Dx: WBC 13.9, Afebrile RX: RRX: DVT prophylaxis: Compression Device and Lovenox Endo: Problem: Diabetes Mellitus Type II, hyperglycemia DKA (RESOVED) DDX: Moderate DKA likley multi-factorial in the setting of infection from UTI, Dexamethasone, and trauma to the brain from edema noted on MRI and CT. Medical history diabetes mellitus type 2 with home medication that includes Trulicity 0.77 weekly, Glyburide, and lispro (?). Previous A1c (07/19/2024) 9.0. Overnight night total of 50 units of Lispro given. Dx: Blood Glucose on admission 367-->499 (02/08/2025) , Anion gap 21, Beta- hydroxybutyrate 4.4-->Anion 9 and Fasting Glucose of 174. RX: Glargine 20 units HS, continue sliding scale, bedside glucose checks Q6 HR given NPO Sliding Scale: 150-200: 5 units 201-250: 7 units 251-300: 10 units >300: 12 units RRX: Consider adding scheduled Lispro ID: Problem: Sepsis secondary to E.coli ESBL DDX: Meeting SIRs criteria at the time of consult with tachycardia, tachypneia, and known source of infection from UTI but not septic as change in vitals likely secondary to acute encephloapthy from meningioma leading to edema Dx: Urinary tract infectio(n as noted on UA with turbid urine, positive Esterase, and WBC 1507; bacteria 4+ Urine Culture: GNR (past medical history of ESBL). Chest x-ray: NO pneumonia and CABG noted. Urine Culture E. Coli ESBL. Pending Blood cutlure RX: Day 2 Zosyn (02/08/2025--) RRX: Stop Ceftriaxone (02/07/2025--02/07/2025) Goals of Care: Overall guarded prognosis given meningioma and edema noted on MRI. Full Code at this time, please contact family with any changes. Health Maintenance: Disp: Pt is currently admitted to floors for further management of acute encephloapthy, awaiting weaning off mechanical ventilation FEN: NG tube Vital 1.2 at 20 ml/hr via NG tube by pump. Advance 10 ml every 8 hours to goal rate of 45 ml/hr X 24 hrs. If no IV fluids, water flushes of 30 ml/hr. DVT: LOvenox GI: Protonix Code: Full Code - The patient's plan was discussed with attending Dr. Kirill Heck MD PGY1 Internal Medicine Attending Provider Attestation/Addendum pt seen and examined with resident team, agree with above. in brief this is a 89yo F admitted to the ICU for acute hypoxic respiratory failure. She was intubated yesterday evening and started on fentanyl and propofol for sedation. She has done well overnight. She has been hypertensive and required occasional as needed IV medication. She was resumed on her home beta-ruth ann. On exam this morning she is awake though does not follow commands. She is elderly and frail in appearance and appears uncomfortable. Lungs are clear to auscultation heart rate regular rhythmic, no increased work of breathing, abdomen soft nontender bowel sounds present no rebound or guarding. Limbs are thin with pulses palpable. Labs show resolution of her DKA today. She continues on Decadron for cerebral edema secondary to compression from the meningioma. Her urine cultures have resulted out today and show an ESBL E. coli which is sensitive to Zosyn. She is currently on Zosyn. The case was discussed extensively with the family once more at bedside. They are resistant to acknowledging her current condition. A spontaneous breathing trial was attempted today. She was weaned off of all sedation. Unfortunately she had several frequent apneic spells and was therefore switched back to AC/VC. Case discussed with resident team and ICU Labs, imaging records reviewed Approximately 45 cc minutes required for eval, exam, review, intervention, discussion and formulation of plan of care for this critically ill patient with acute hypoxic respiratory failure secondary to meningioma and cerebral edema at high risk for further and ongoing decompensation. At this point in time the family would like to remain full code.
--- NOTE | 2025-02-09 11:09 | ESPR_ITS ---
Documentation for date of: 02/09/25 Subjective Subjective Interval history: Patient was seen and examined by the bedside. Patient was intubated yesterday due to inability to protect airways, worsened mentation. Neurosurgery was contacted for possible transfer, for now patient is not a candidate for transfer. Patient is off fentanyl and propofol, ICU team will try to do SBT and if patient passes, will try to extubate her. Patient nods when asked if she is tired. According to the family at the bedside, patient was able to fixate gaze on one of the daughters. Prognosis remains poor. Exam Vital Signs Temp Pulse Resp BP Pulse Ox O2 Del Method O2 Flow Rate 96.8 F 63 8 L 153/74 H 100 Mechanical Ventilation 16 02/09/25 08:00 02/09/25 10:17 02/09/25 10:15 02/09/25 10:17 02/09/25 10:15 02/09/25 08:00 02/09/25 09:00 FiO2 35 02/09/25 09:43 Narrative Exam Gen: Elderly female. Intubated. HEENT: NCAT, PERRLA, EOMI, MMM, anicteric conjunctivae. CVS: normal S1 and S2. RRR. No M/R/G. Resp: CTA B/L. No rhonchi, rales, crackles or wheezing. Abd: soft, non-tender, non-distended. BS+ in all 4 quadrants. MSK: Good ROM in BUE & BLE. No edema or rash. Neuro: GCS E3, VNT M6, pupils equal, reactive to light, miotic. Negative babinski bilateral. Follows commands, moves upper extremities and right foot toes. Psych: impossible to assess. Objective Labs 02/09/25 05:40 02/09/25 13:55 Labs: Laboratory Results - last 24 hr 02/08/25 02/08/25 02/08/25 12:11 15:47 16:02 WBC 8.5 RBC 4.55 Hgb 12.9 Hct 37.0 MCV 81 MCH 28.4 MCHC 34.9 RDW Std Deviation 44.7 Plt Count 442 H D Neut % (Auto) 80 Lymph % (Auto) 12 Elliott % (Auto) 7 Eos % (Auto) 0 Baso % (Auto) 0 Neut # (Auto) 5.5 Lymph # (Auto) 0.8 L Elliott # (Auto) 0.5 Eos # (Auto) 0.0 Baso # (Auto) 0.0 Immature Gran # (Auto) 0.10 H Absolute Nucleated RBC 0.00 Immature Gran % 2 H Nucleated RBC % 0 Puncture Site Right Radial ABG pH 7.42 ABG pCO2 39 ABG pO2 299 H ABG HCO3 25 ABG O2 Saturation 101 H ABG Base Excess 1 VBG pH 7.46 VBG pCO2 26 L VBG pO2 125 H VBG O2 Sat (Laura) 100 H VBG Base Excess -4 L FiO2 100 Sodium 134 L 135 L Potassium 3.8 4.0 Chloride 94 L 96 L Carbon Dioxide 19.5 L 21.8 Anion Gap 21 H 17 H BUN 22 23 Creatinine 0.9 1.0 Estim Creat Clear Calc 38.3 L 34.5 L eGFR > 60 54 L BUN/Creatinine Ratio 24 H 23 H Glucose 499 H* D 446 H* D Calculated Osmolality 293 292 Lactic Acid 5.1 H* Calcium 8.6 8.6 Corrected Calcium 8.6 Phosphorus 4.7 Magnesium Total Bilirubin AST ALT Alkaline Phosphatase Total Protein Albumin 4.0 Globulin Albumin/Globulin Ratio Beta-Hydroxybutyrate/Acetoacetate 4.4 H 02/08/25 02/08/25 02/08/25 18:16 18:37 20:53 WBC RBC Hgb Hct MCV MCH MCHC RDW Std Deviation Plt Count Neut % (Auto) Lymph % (Auto) Elliott % (Auto) Eos % (Auto) Baso % (Auto) Neut # (Auto) Lymph # (Auto) Elliott # (Auto) Eos # (Auto) Baso # (Auto) Immature Gran # (Auto) Absolute Nucleated RBC Immature Gran % Nucleated RBC % Puncture Site Left Radial ABG pH 7.35 ABG pCO2 50 H D ABG pO2 500 H D ABG HCO3 27 H ABG O2 Saturation 101 H ABG Base Excess 1 VBG pH VBG pCO2 VBG pO2 VBG O2 Sat (Laura) VBG Base Excess FiO2 100 Sodium 134 L 133 L Potassium 3.8 3.8 Chloride 98 95 L Carbon Dioxide 23.9 24.5 Anion Gap 12 14 BUN 24 H 29 H Creatinine 1.0 1.0 Estim Creat Clear Calc 34.5 L 34.5 L eGFR 54 L 54 L BUN/Creatinine Ratio 24 H 29 H Glucose 384 H D 352 H Calculated Osmolality 288 286 Lactic Acid 3.6 H 4.4 H* Calcium 8.6 9.5 Corrected Calcium 8.6 9.5 Phosphorus 3.1 3.5 Magnesium Total Bilirubin AST ALT Alkaline Phosphatase Total Protein Albumin 4.2 4.1 Globulin Albumin/Globulin Ratio Beta-Hydroxybutyrate/Acetoacetate 02/09/25 02/09/25 02/09/25 00:23 04:41 05:40 WBC 13.9 H D RBC 4.89 Hgb 13.8 Hct 40.9 MCV 84 MCH 28.2 MCHC 33.7 RDW Std Deviation 45.8 Plt Count 386 D Neut % (Auto) 79 Lymph % (Auto) 10 Elliott % (Auto) 10 Eos % (Auto) 0 Baso % (Auto) 0 Neut # (Auto) 11.0 H Lymph # (Auto) 1.4 Elliott # (Auto) 1.4 H Eos # (Auto) 0.0 Baso # (Auto) 0.1 Immature Gran # (Auto) 0.16 H Absolute Nucleated RBC 0.00 Immature Gran % 1 H Nucleated RBC % 0 Puncture Site Left Radial ABG pH 7.41 ABG pCO2 42 ABG pO2 187 H D ABG HCO3 26 ABG O2 Saturation 101 H ABG Base Excess 2 VBG pH VBG pCO2 VBG pO2 VBG O2 Sat (Laura) VBG Base Excess FiO2 40 Sodium 138 139 Potassium 4.4 D 4.2 Chloride 102 102 Carbon Dioxide 24.9 20.7 Anion Gap 11 16 BUN 28 H 31 H Creatinine 0.9 0.8 Estim Creat Clear Calc 38.3 L 37.7 L eGFR > 60 > 60 BUN/Creatinine Ratio 31 H 39 H Glucose 236 H D 174 H D Calculated Osmolality 289 288 Lactic Acid 2.3 H Calcium 7.9 L D 8.3 Corrected Calcium 8.4 L 8.5 Phosphorus 3.3 3.5 Magnesium 2.1 Total Bilirubin 0.4 AST 42 H ALT 18 Alkaline Phosphatase 137 H D Total Protein 5.8 Albumin 3.4 D 3.7 Globulin 2.1 L Albumin/Globulin Ratio 1.8 Beta-Hydroxybutyrate/Acetoacetate 02/09/25 02/09/25 02/09/25 06:15 06:40 08:00 WBC RBC Hgb Hct MCV MCH MCHC RDW Std Deviation Plt Count Neut % (Auto) Lymph % (Auto) Elliott % (Auto) Eos % (Auto) Baso % (Auto) Neut # (Auto) Lymph # (Auto) Elliott # (Auto) Eos # (Auto) Baso # (Auto) Immature Gran # (Auto) Absolute Nucleated RBC Immature Gran % Nucleated RBC % Puncture Site ABG pH ABG pCO2 ABG pO2 ABG HCO3 ABG O2 Saturation ABG Base Excess VBG pH VBG pCO2 VBG pO2 VBG O2 Sat (Laura) VBG Base Excess FiO2 Sodium 138 Potassium 3.9 Chloride 105 Carbon Dioxide 23.8 Anion Gap 9 BUN 28 H Creatinine 0.8 Estim Creat Clear Calc 37.7 L eGFR > 60 BUN/Creatinine Ratio 35 H Glucose 187 H Calculated Osmolality 286 Lactic Acid 2.0 Calcium 7.9 L Corrected Calcium 8.4 L Phosphorus 3.4 Magnesium Total Bilirubin AST ALT Alkaline Phosphatase Total Protein Albumin 3.4 Globulin Albumin/Globulin Ratio Beta-Hydroxybutyrate/Acetoacetate 0.0 ABG Interpretation ABG results: 02/08/25 02/08/25 02/08/25 12:11 15:47 18:16 ABG pH 7.42 7.35 ABG pCO2 39 50 H D ABG pO2 299 H 500 H D ABG HCO3 25 27 H ABG O2 Saturation 101 H 101 H ABG Base Excess 1 1 VBG pH 7.46 VBG pCO2 26 L VBG pO2 125 H VBG Base Excess -4 L 02/09/25 04:41 ABG pH 7.41 ABG pCO2 42 ABG pO2 187 H D ABG HCO3 26 ABG O2 Saturation 101 H ABG Base Excess 2 VBG pH VBG pCO2 VBG pO2 VBG Base Excess Quality Measures Quality Measures VTE prophylaxis Advance care planning discussed with:: other Assessment & Plan Assessment Current Active Medications: Generic Name Dose Route Start Last Admin Trade Name Freq PRN Reason Stop Dose Admin Acetaminophen 650 mg 02/08/25 01:36 Acetaminophen 325 Mg Tablet PO 03/10/25 01:35 Q6H PRN PAIN OR FEVER > 101 Atorvastatin Calcium 40 mg 02/08/25 21:00 02/08/25 21:29 Atorvastatin Calcium 20 Mg Tablet PO 03/10/25 20:59 40 mg HS ORALIA Administration Clopidogrel Bisulfate 75 mg 02/08/25 09:00 02/09/25 10:17 Clopidogrel Bisulfate 75 Mg Tablet PO 03/10/25 08:59 75 mg QDAY ORALIA Administration Dexamethasone Sodium Phosphate 4 mg 02/08/25 06:00 02/09/25 06:25 Dexamethasone Sod Phos Inj 4 Mg/Ml Vial IVP 03/10/25 05:59 4 mg Q6HR ORALIA Administration Protocol Dextrose 25 ml 02/08/25 01:40 Dextrose 50%-Water Inj 50 Ml Syringe IV 03/10/25 01:39 Q15MIN PRN BG 50-70 responsive npo pt Dextrose 50 ml 02/08/25 01:40 Dextrose 50%-Water Inj 50 Ml Syringe IV 03/10/25 01:39 Q15MIN PRN BG <50 OR BG <70 & pt unresponsive Enoxaparin Sodium 40 mg 02/09/25 09:00 02/09/25 10:16 Enoxaparin Sod Inj 40 Mg/0.4 Ml Syringe SC 02/23/25 08:59 40 mg QDAY ORALIA Administration Glucagon 1 mg 02/08/25 01:40 Glucagon Inj 1 Mg Vial IM Q15MIN PRN BG <70, and no IV access Piperacillin/Tazobactam/Dextrose 3.375 gm in 50 mls @ 12.5 mls/hr 02/08/25 22:00 02/09/25 06:25 Zosyn IV 02/15/25 21:59 12.5 mls/hr Q8HR ORALIA Administration Norepinephrine/Dextrose 8 mg in 250 mls @ 6.379 mls/hr 02/08/25 17:06 Levophed In D5w 8mg/250ml IV 03/10/25 17:05 .Q24H PRN PER PROTOCOL Protocol 0.05 MCG/KG/MIN Propofol 1,000 mg in 100 mls @ 2.041 mls/hr 02/08/25 17:12 02/09/25 00:00 Diprivan Ivpb IV 03/10/25 17:11 0 mcg/kg/min .Q24H PRN 0 mls/hr PER PROTOCOL Titration Protocol 5 MCG/KG/MIN Fentanyl Citrate 2,500 mcg in 250 mls @ 2.5 mls/hr 02/08/25 18:44 02/09/25 09:00 Sublimaze Inj 2,500 Mcg/250 Ml Bag IV 02/13/25 18:43 0 mcg/hr .Q24H PRN 0 mls/hr PER PROTOCOL Titration Protocol 25 MCG/HR Insulin Glargine 20 unit 02/09/25 21:00 Insulin Glargine (Lantus) 5 Unit/0.05 Ml (Per 5 Units) SC 03/11/25 20:59 HS ORALIA Insulin Human Lispro 0 unit 02/09/25 12:00 Insulin Lispro (Admelog) 1 Unit/0.01 Ml Unit SC 03/11/25 11:59 Q6HR ORALIA Protocol Labetalol HCl 10 mg 02/08/25 18:57 Labetalol Inj 5 Mg/Ml Vial 20 Ml IVP 03/10/25 01:39 Q6HR PRN SBP > 180 Levetiracetam 1,000 mg 02/08/25 09:00 02/09/25 10:16 Levetiracetam Inj 100 Mg/Ml Vial 5ml IVP 03/10/25 08:59 1,000 mg Q12HR ORALIA Administration Metoprolol Tartrate 25 mg 02/08/25 09:00 02/09/25 10:17 Metoprolol Tartrate 25 Mg Tablet PO 03/10/25 08:59 25 mg BID ORALIA Administration Ondansetron HCl 4 mg 02/08/25 01:36 Ondansetron Inj 2 Mg/Ml Inj 2 Ml IV 03/10/25 01:35 Q6H PRN NAUSEA OR VOMITING Protocol Pantoprazole Sodium 40 mg 02/09/25 09:00 02/09/25 10:16 Pantoprazole Inj 40 Mg Vial IVP 03/11/25 08:59 40 mg QDAY ORALIA Administration Sennosides 2 tab 02/08/25 01:36 Senna Tablet PO 03/10/25 01:35 BID PRN CONSTIPATION Protocol Plan The patient is a 89-year-old female with a previous medical history of right frontal meningioma, CVA, CAD status post CABG, hypertension, hyperlipidemia, type 2 diabetes mellitus who was brought in by ambulance from the [facility] due to altered mentation. History gathering is done through the chart review and talking to the medical personnel. Patient's daughter who visited the patient at 8 PM last night noted patient to be AAO x 3 without weakness. #Acute encephalopathy #Right frontal lobe meningioma #Right frontal lobe edema #Acute stroke ruled out #History of CVA Patient has been following up with Dr. Lopez previously and was admitted in [place], but was not a candidate for surgery. Head CT showed frontal soft tissue tumor 27 mm in transverse dimension, frontal edema with mass effect depression in the right frontal horn 10 mm compared to 7 mm on January 07, 2025. Head and neck CTA showed enhancing right frontal convexity mass most consistent with meningioma, negative for significant arterial stenosis and large vessel occlusions. Brain MRI showed 25 mm right frontal convexity ED mass with extensive surrounding edema with depression of the right frontal horn secondary to the frontal edema. Plan: ? IV dexamethasone 4 mg every 6 hours ? Continue clopidogrel 75 mg ? Aspiration precautions - HOB elevation 30 degrees ? Levetiracitam 1000 mg BID - Blood pressure control, goal 130-140/80, avoid hypotension - patient is not a candidate for transfer due to poor prognosis #UTI #History of diabetes mellitus #Diabetic ketoacidosis #Hypertensive urgency #History CAD, s/p CABG - management per primary team Plan of care discussed with attending Dr. Lopez. Cecilia Parish MD, PGY 1. Attending Provider Attestation/Addendum I personally have seen and examined the patient at the bedside with her family around, and I agreed with resident's findings, assessment and plan of care. She will continue with steroids, close monitoring for any change in mental status.Noted some improvement since yesterday despite the EEG findings. Family wants her to continue with Full code status.
--- NOTE | 2025-02-09 11:19 | PC.SS ---
BULK STATION OPERATOR confirmed with ICU residential team that transfer request is cancelled. BULK STATION OPERATOR updated transfer nurse.
--- NOTE | 2025-02-09 11:29 | PC.DIETICIAN ---
Nutrition prescription If medical condition allows, consider: Vital 1.2 at 20 ml/hr via NG tube by pump. Advance 10 ml every 8 hrs to goal rate of 45 ml/hr x 24 hrs. If no IV fluids, water flushes of 30 ml/hr (or per MD).
--- NOTE | 2025-02-09 11:43 | PCS.ST ---
D/C HOG SCALDER/Swallow evaluation at this time. Pt intubated and transferred to ICU. Please re-order when appropriate.
[2025-02-09 12:30] LABS: Glucose Estimated Average 223 mg/dL (80-131); Hemoglobin A1C 9.4 % Hgb (4.8-6.0)
--- NOTE | 2025-02-09 13:29 | PC.SS ---
Update: Patient remains intubated. Off sedation. No pressor support in place. Tube feedings to start today. Neurology is consulting. Failed breathing trial today. Patient remains Full Code.
[2025-02-09 14:40] LABS: Albumin, Serum 3.6 gm/dL (3.4-4.8); Anion Gap 12 (7-16); BUN/Creatinine Ratio 39 Ratio (12-20); Blood Urea Nitrogen 31 mg/dL (9-23); Calcium 8.9 mg/dL (8.3-10.6); Calcium (Corrected) 9.2 mg/dL (8.5-10.1); Carbon Dioxide 23.6 mMol/L (20.0-31.0); Chloride 100 mMol/L (98-107); Creatinine (Component) 0.8 mg/dL (0.6-1.3); Estimated Creatinine Clearance 39.3 mL/min (>60); Glucose 275 mg/dL (74-106); Osmolality,Calculated 288 (275-295); Phosphorous 3.7 mg/dL (2.4-5.1); Potassium 3.9 mMol/L (3.4-5.1); Sodium 136 mMol/L (136-145); eGFR > 60 See Note
[2025-02-09] MEDS: ATORVASTATIN CALCIUM 20 MG TABLET 40 MG PO (21:16)
[2025-02-09] MEDS: INSULIN GLARGINE (Lantus) 5 UNIT/0.05 ML (PER 5 UNITS) 20 UNIT SC (21:17)
[2025-02-10] VITALS (54 sets, daily range): BP systolic 97–184; BP diastolic 51–114; PULSE 50–97; RESP 5–24; TEMP 36.3–36.6; O2SAT 98–100
[2025-02-10] MEDS: INSULIN LISPRO (AdmeLOG) 1 UNIT/0.01 ML UNIT SC ×5 (01:14→23:36)
[2025-02-10] MEDS: DEXAMETHASONE SOD PHOS INJ 4 MG/ML VIAL IVP ×5 (01:15→23:33)
[2025-02-10] MEDS: hydrALAZINE INJ 20 MG/ML VIAL 10 MG IVP (01:26)
[2025-02-10 05:01] LABS: Base Excess 2 (-3-3); HCO3 26 mEq/L (20-26); Inspired Oxygen, FIO2 30 %; O2 Saturation 100 % (91-98); PCO2 41 mmHg (32.0-48.0); PO2 132 mmHg (83-108); pH, Arterial 7.42 (7.35-7.45)
[2025-02-10 05:04] LABS: Allen Test Performed/OK; Puncture Site Right Radial
[2025-02-10 05:22] LABS: Basophils % (Auto) 0 % (0-2.5); Eosinophils % (Auto) 0 % (0-10); Hematocrit 39.7 % (36.0-46.0); Hemoglobin 13.4 g/dL (12.0-16.0); Immature Granulocytes % (Auto) 1 % (0-0); Immature Granulocytes Auto 0.17 Thou/mm3 (0.00-0.00); Lymphocytes # (Auto) 1.1 Thou/mm3 (1.0-4.8); Lymphocytes % (Auto) 6 % (10-50); Mean Corpuscular HGB Conc 33.8 g/dl (31.0-37.0); Mean Corpuscular Hemoglobin 28.6 pg (25.0-35.0); Mean Corpuscular Volume 85 fL (80-100); Monocytes # (Auto) 1.2 Thou/mm3 (0.0-0.8); Monocytes % (Auto) 6 % (0-12); Neutrophils # (Auto) 16.3 Thou/mm3 (1.8-7.7); Neutrophils % (Auto) 87 % (37-80); Nucleated Red Blood Cell % 0 /100 WBC (0); Platelet Count 490 Thou/mm3 (140-440); RDW Standard Deviation 47.6 fL (36.4-46.3); Red Blood Count 4.69 Miln/mm3 (4.00-5.20); White Blood Count 18.8 Thou/mm3 (3.6-11.0)
[2025-02-10] MEDS: PIPER/TAZO 3.375 GM PREMIX 3.375 GM/50 ML BAG IV ×3 (05:36→21:06)
[2025-02-10 05:42] LABS: Alanine Aminotransferase 17 U/L (10-49); Albumin, Serum 3.6 gm/dL (3.4-4.8); Albumin/Globulin Ratio 1.7 (1.2-2.2); Alkaline Phosphatase 155 U/L (46-116); Anion Gap 9 (7-16); Aspartate Amino Transferase 20 U/L (0-34); BUN/Creatinine Ratio 42 Ratio (12-20); Bilirubin,Total 0.4 mg/dL (0.3-1.2); Blood Urea Nitrogen 38 mg/dL (9-23); Calcium 8.3 mg/dL (8.3-10.6); Calcium (Corrected) 8.6 mg/dL (8.5-10.1); Carbon Dioxide 24.8 mMol/L (20.0-31.0); Chloride 103 mMol/L (98-107); Creatinine (Component) 0.9 mg/dL (0.6-1.3); Globulin 2.1 gm/dL (2.3-3.5); Glucose 358 mg/dL (74-106); Magnesium 2.1 mg/dL (1.6-2.6); Osmolality,Calculated 296 (275-295); Phosphorous 3.2 mg/dL (2.4-5.1); Sodium 137 mMol/L (136-145); Total Protein 5.7 gm/dL (5.7-8.2); eGFR > 60 See Note
--- NOTE | 2025-02-10 06:00 | XR_ITS ---
Examination: AP chest single view Technique one AP portable semiupright chest single view Date and time: February 10, 2025 at 0531 hours Comparison February 09, 2025 INDICATIONS: Hypoxic respiratory failure postintubation FINDINGS: Endotracheal tube tip 2.9 cm above Dona CABG. Normal heart size. Mild vascular congestion. No lobar pneumonia or pulmonary edema Orogastric tube in the stomach the tip is below the level of the film IMPRESSION: Endotracheal tube tip 2.9 cm above Dona No pneumonia or pulmonary edema
[2025-02-10] MEDS: PANTOPRAZOLE INJ 40 MG VIAL IVP (08:31)
[2025-02-10] MEDS: ENOXAPARIN SOD INJ 40 MG/0.4 ML SYRINGE SC (08:31)
[2025-02-10] MEDS: POLYETHYLENE GLYCOL 17 GM PACKET PO (08:32)
[2025-02-10] MEDS: levETIRAcetam INJ 100 MG/ML VIAL 5ML 1000 MG IVP ×2 (08:32→20:50)
[2025-02-10] MEDS: CLOPIDOGREL BISULFATE 75 MG TABLET PO (08:32)
[2025-02-10] MEDS: SENNA TABLET 2 TAB PO ×2 (08:33→20:51)
[2025-02-10] MEDS: METOPROLOL TARTRATE 25 MG TABLET PO ×2 (08:47→20:50)
[2025-02-10] MEDS: INSULIN LISPRO (AdmeLOG) 1 UNIT/0.01 ML UNIT 3 UNIT SC ×4 (08:55→23:37)
--- NOTE | 2025-02-10 09:10 | ESPR_ITS ---
Documentation for date of: 02/10/25 Subjective Subjective Interval history: Patient is 89-year-old female with a past medical history of meningioma, CVA, CABG, hypertension, hyperlipidemia, type 2 diabetes mellitus, Brought in by EMS from rehab facility, for altered mental status. Spoke to patient's daughter Jennifer, who stated that she she had visited the patient last night, at the facility at 8 PM, and the patient was at her baseline mental status, conversational alert and oriented x 3 and able to move her extremities without any weakness. At the time of evaluation, the patient is found to be obtunded, responsive only to pain full stimuli, no movement elicited on the left upper extremity, also free following left upper extremity, per daughter, nursing staff from rehab facility told even at 6 AM patient's mental status had declined. LWK 8 pm. In the ER initial vitals were 213/97, heart rate 93/min, temperature 102F, CBC showed WBC 5.2, hemoglobin 13.6, platelet 24, normal coagulation profile, mild hyponatremia sodium 133, normal renal function, lactic acid 1.7, magnesium 1.3, which was repleted, normal liver function, mild alkaline phosphatase elevation, negative Pro-Blas. Urinalysis showed UTI. The patient was given IV fluid bolus, ceftriaxone, IV magnesium, subcu insulin, and acetaminophen IV. ER provider, initially tried to transfer the patient back to [place], where she was followed for her meningioma and evaluated by neurosurgeon, eventually discharged to rehab facility and deemed poor prognosis, no surgical intervention was advised. But transfer was declined due to capacity. ER provider spoke to neurologist Dr. Lopez, who recommended starting the patient on IV steroids for cerebral edema. Head CT showed frontal edema, with mass effect, depressed and in the frontal horn, 10 mm compared to 7 mm on January 06, 2025. Head CTA was done which was negative for large vessel occlusion. Patient will be admitted to medical floor for for further observation management. Past medical history: History of meningioma?was recently admitted in [place] for neurosurgical evaluation, neurosurgery recommended conservative management due to poor prognosis, history of CABG, history of CVA, history of hyperlipidemia, history of type 2 diabetes mellitus. Social history: N/A 02/08/2025: ICU team consulted given DKA and acute encephalopathy and soft tissue tumor mass w/ calcified rim and transverse dimension of mass 27 mm producing mass effect with edema noted secondary to UTI. Concern that patient could not protect airway. Recent hospitalized at [facility] in [place] after being transferred directly from the ER for management of meningioma with an accepting neurosurgeon physician. Family at bedside is unsure of definitive diagnosis given at hospital in [place]. Explained overall poor prognosis given meningioma noted on CT and MRI with mass effect from edema. Recommendations are to treat underlying conditions of DKA and UTI. Goals of care discussion with daughters present at bedside, family would like additional time to take home and CODE STATUS. 02/09/2025: Overnight, minimal urine outpt over the last 12 hours. Repeat Renal Panel at 1 PM. Continue to monitor urine output. Propofol 20 wean off near midnight and Fentanly decreased from 75-->25. Diectician consulted for tube feedings, plan to start tube feedings today. Despite speaking to a total of 3 neurosurgeons, no transfer planned or acute surgical intervention recommended at this time. Plan for spontaneous breathing trial. Bradycardia HR 50-60, if worsen switch Metoprolol tartrate to a calcium channel ruth ann. 02/10/2025: Overnight, one time dose of hydralazine given. Patient waxes and wains. Overall no changes in medical changes and patient remains full code. Failed SBT, RR 5-->patient returned to AC/VC. Family is open to goals of care w/ [facility]. Exam Vital Signs Temp Pulse Resp BP Pulse Ox O2 Del Method O2 Flow Rate 97.6 F 73 13 123/51 L 100 Mechanical Ventilation 16 02/10/25 07:23 02/10/25 08:47 02/10/25 07:23 02/10/25 08:47 02/10/25 07:23 02/09/25 16:00 02/09/25 09:00 FiO2 30 02/10/25 07:13 Narrative Exam General Appearance: Alert & Oriented X0, thin female who is lying in bed in no acute distress HEENT: Skull symmetrical and atraumatic. Conjunctivae pale pink and moist. Pupils equal, round, and sluggish to reactive to light. No deviation noted on physical exam. External ear without lesion or discharge. Oral mucosa continues to appear dry. Cardio: Normal Rate and Rhythm with S1 and S2 heart sounds. No murmurs or extra heart sounds auscultated. No bruits on carotid auscultation. No peripheral edema or cyanosis. Lungs: Symmetric with limited expansion. Chest and back non-tender. Breath sounds vesicular without crackles, wheezing or rhonchi Abdomen: Non-tender, Non-distended, Normal Reactive Bowel Sounds Neuro: No Alert, No cooperative, NO oriented to person, No place, and No time. Slurred. Upper motor strength 1/5 and 1/5. Not withdrawing to painful stimuli. Waxes and wains. Objective Labs 02/11/25 04:30 02/11/25 04:30 Labs: Laboratory Results - last 24 hr 02/09/25 02/09/25 02/10/25 07:50 13:55 04:40 WBC 18.8 H RBC 4.69 Hgb 13.4 Hct 39.7 MCV 85 MCH 28.6 MCHC 33.8 RDW Std Deviation 47.6 H Plt Count 490 H D Neut % (Auto) 87 H Lymph % (Auto) 6 L [place] % (Auto) 6 Eos % (Auto) 0 Baso % (Auto) 0 Neut # (Auto) 16.3 H Lymph # (Auto) 1.1 [place] # (Auto) 1.2 H Eos # (Auto) 0.0 Baso # (Auto) 0.0 Immature Gran # (Auto) 0.17 H Absolute Nucleated RBC 0.00 Immature Gran % 1 H Nucleated RBC % 0 Puncture Site ABG pH ABG pCO2 ABG pO2 ABG HCO3 ABG O2 Saturation ABG Base Excess FiO2 Sodium 136 137 Potassium 3.9 4.0 Chloride 100 103 Carbon Dioxide 23.6 24.8 Anion Gap 12 9 BUN 31 H 38 H Creatinine 0.8 0.9 Estim Creat Clear Calc 39.3 L 35.0 L eGFR > 60 > 60 BUN/Creatinine Ratio 39 H 42 H Glucose 275 H D [address] Glu mg/dL 223 H Hemoglobin A1c 9.4 H Calculated Osmolality 288 296 H Calcium 8.9 8.3 Corrected Calcium 9.2 8.6 Phosphorus 3.7 3.2 Magnesium 2.1 Total Bilirubin 0.4 AST 20 ALT 17 Alkaline Phosphatase 155 H Total Protein 5.7 Albumin 3.6 3.6 Globulin 2.1 L Albumin/Globulin Ratio 1.7 02/10/25 04:50 WBC RBC Hgb Hct MCV MCH MCHC RDW Std Deviation Plt Count Neut % (Auto) Lymph % (Auto) [place] % (Auto) Eos % (Auto) Baso % (Auto) Neut # (Auto) Lymph # (Auto) [place] # (Auto) Eos # (Auto) Baso # (Auto) Immature Gran # (Auto) Absolute Nucleated RBC Immature Gran % Nucleated RBC % Puncture Site Right Radial ABG pH 7.42 ABG pCO2 41 ABG pO2 132 H D ABG HCO3 26 ABG O2 Saturation 100 H ABG Base Excess 2 FiO2 30 Sodium Potassium Chloride Carbon Dioxide Anion Gap BUN Creatinine Estim Creat Clear Calc eGFR BUN/Creatinine Ratio Glucose Estimated Ave Glu mg/dL Hemoglobin A1c Calculated Osmolality Calcium Corrected Calcium Phosphorus Magnesium Total Bilirubin AST ALT Alkaline Phosphatase Total Protein Albumin Globulin Albumin/Globulin Ratio ABG Interpretation ABG results: 02/08/25 02/08/25 02/08/25 12:11 15:47 18:16 ABG pH 7.42 7.35 ABG pCO2 39 50 H D ABG pO2 299 H 500 H D ABG HCO3 25 27 H ABG O2 Saturation 101 H 101 H ABG Base Excess 1 1 VBG pH 7.46 VBG pCO2 26 L VBG pO2 125 H VBG Base Excess -4 L 02/09/25 02/10/25 04:41 04:50 ABG pH 7.41 7.42 ABG pCO2 42 41 ABG pO2 187 H D 132 H D ABG HCO3 26 26 ABG O2 Saturation 101 H 100 H ABG Base Excess 2 2 VBG pH VBG pCO2 VBG pO2 VBG Base Excess Quality Measures Quality Measures VTE prophylaxis Advance care planning discussed with:: child Assessment & Plan Assessment Current Active Medications: Generic Name Dose Route Start Last Admin Trade Name Shy PRN Reason Stop Dose Admin Acetaminophen 650 mg 02/08/25 01:36 Acetaminophen 325 Mg Tablet PO 03/10/25 01:35 Q6H PRN PAIN OR FEVER > 101 Atorvastatin Calcium 40 mg 02/08/25 21:00 02/09/25 21:16 Atorvastatin Calcium 20 Mg Tablet PO 03/10/25 20:59 40 mg HS ORALIA Administration Clopidogrel Bisulfate 75 mg 02/08/25 09:00 02/10/25 08:32 Clopidogrel Bisulfate 75 Mg Tablet PO 03/10/25 08:59 75 mg QDAY ORALIA Administration Dexamethasone Sodium Phosphate 4 mg 02/08/25 06:00 02/10/25 05:36 Dexamethasone Sod Phos Inj 4 Mg/Ml Vial IVP 03/10/25 05:59 4 mg Q6HR ORALIA Administration Protocol Dextrose 25 ml 02/08/25 01:40 Dextrose 50%-Water Inj 50 Ml Syringe IV 03/10/25 01:39 Q15MIN PRN BG 50-70 responsive npo pt Dextrose 50 ml 02/08/25 01:40 Dextrose 50%-Water Inj 50 Ml Syringe IV 03/10/25 01:39 Q15MIN PRN BG <50 OR BG <70 & pt unresponsive Enoxaparin Sodium 40 mg 02/09/25 09:00 02/10/25 08:31 Enoxaparin Sod Inj 40 Mg/0.4 Ml Syringe SC 02/23/25 08:59 40 mg QDAY ORALIA Administration Glucagon 1 mg 02/08/25 01:40 Glucagon Inj 1 Mg Vial IM Q15MIN PRN BG <70, and no IV access Piperacillin/Tazobactam/Dextrose 3.375 gm in 50 mls @ 12.5 mls/hr 02/08/25 22:00 02/10/25 05:36 Zosyn IV 02/15/25 21:59 12.5 mls/hr Q8HR ORALIA Administration Norepinephrine/Dextrose 8 mg in 250 mls @ 6.379 mls/hr 02/08/25 17:06 Levophed In D5w 8mg/250ml IV 03/10/25 17:05 .Q24H PRN PER PROTOCOL Protocol 0.05 MCG/KG/MIN Propofol 1,000 mg in 100 mls @ 2.041 mls/hr 02/08/25 17:12 02/09/25 00:00 Diprivan Ivpb IV 03/10/25 17:11 0 mcg/kg/min .Q24H PRN 0 mls/hr PER PROTOCOL Titration Protocol 5 MCG/KG/MIN Fentanyl Citrate 2,500 mcg in 250 mls @ 2.5 mls/hr 02/08/25 18:44 02/09/25 09:00 Sublimaze Inj 2,500 Mcg/250 Ml Bag IV 02/13/25 18:43 0 mcg/hr .Q24H PRN 0 mls/hr PER PROTOCOL Titration Protocol 25 MCG/HR Insulin Glargine 20 unit 02/09/25 21:00 02/09/25 21:17 Insulin Glargine (Lantus) 5 Unit/0.05 Ml (Per 5 Units) SC 03/11/25 20:59 20 unit HS ORALIA Administration Insulin Human Lispro 0 unit 02/09/25 12:00 02/10/25 05:36 Insulin Lispro (Admelog) 1 Unit/0.01 Ml Unit SC 03/11/25 11:59 6 unit Q6HR ORALIA Administration Protocol Insulin Human Lispro 3 unit 02/10/25 07:30 02/10/25 08:55 Insulin Lispro (Admelog) 1 Unit/0.01 Ml Unit SC 03/12/25 07:29 3 unit Q6HR ORALIA Administration Labetalol HCl 10 mg 02/10/25 07:16 Labetalol Inj 5 Mg/Ml Vial 20 Ml IVP 03/10/25 01:39 Q6HR PRN SBP > 150 Levetiracetam 1,000 mg 02/08/25 09:00 02/10/25 08:32 Levetiracetam Inj 100 Mg/Ml Vial 5ml IVP 03/10/25 08:59 1,000 mg Q12HR ORALIA Administration Metoprolol Tartrate 25 mg 02/08/25 09:00 02/10/25 08:47 Metoprolol Tartrate 25 Mg Tablet PO 03/10/25 08:59 25 mg BID ORALIA Administration Ondansetron HCl 4 mg 02/08/25 01:36 Ondansetron Inj 2 Mg/Ml Inj 2 Ml IV 03/10/25 01:35 Q6H PRN NAUSEA OR VOMITING Protocol Pantoprazole Sodium 40 mg 02/09/25 09:00 02/10/25 08:31 Pantoprazole Inj 40 Mg Vial IVP 03/11/25 08:59 40 mg QDAY ORALIA Administration Polyethylene Glycol 17 gm 02/10/25 09:00 02/10/25 08:32 Polyethylene Glycol 17 Gm Packet PO 03/12/25 08:59 17 gm QDAY ORALIA Administration Sennosides 2 tab 02/10/25 09:00 02/10/25 08:33 Senna Tablet PO 03/12/25 08:59 2 tab BID ORALIA Administration Protocol Plan Patient is 89-year-old female with a past medical history of meningioma, CVA, CABG, hypertension, hyperlipidemia, type 2 diabetes mellitus who was admitted on 02/07/2025 for further observation. Central Nervous System: Problem: Acute Encephalopathy, history of CVA DDX: likely secondary to mass producing lesion noted on CT scan with edema. Meninigioma noted on imagining per chart review in 2020. Left upper extremity decrease motor function likely secondary to mass effect on MCA. vs infectious cause from UTI leading to delirium vs Acedemia Dx: Head CT (02/07/2025): Again noted right frontal soft tissue tumor mass with calcified rim, transverse dimension 27 mm. Frontal edema is again depicted with additional mass effect depressing the right frontal horn, currently 10 mm compared to 7 mm on January 07, 2025. Head/Neck CTA: No significant neck arterial stenoses, No cerebral large vessel arterial occlusions, thrombus, Enhancing right frontal convexity mass most consistent with meningioma. Brain MRI w/ MRA: Negative for acute hemorrhage, Negative for acute infarct, and 25 mm right frontal convexity mass with extensive surrounding edema with depression of the right frontal horn secondary to the frontal edema RX: Dexamethasone 4 mg IVP Q6HR, Clopidogrel 75 mg qday, and Levetiracetam 1000 mg BID RRX: Neuro-surgery second consultation; per neurology recommendations systolic blood pressure 130, Neurology consulted, Dr. Bunn, consulted Cardiovascular: Problem: Hypertension DDX: Past medical CABG and CVA, per chart review TIA first noted in 2020. Dx: EKG Sinus rhythm RX: , Metroplolol 25 mg PO BID, and Labetalol 10 mg IVP RRX: Monitor Blood pressure, consider Hydralazine if HR <60, History CABG and Hyperlipedemia -continue Atorvastatin 40 mg PO HS Bradycardia Patient's HR ranging in 50-60s likely secondary to age related changes vs medication induced vs meningoma edema related. -Continue to monitor, off sedation Respiratory: Problem: Acute Hypoxic respiratory failure, required mechanical ventilation DDX: Patient experienced a rapid response secondary to hypoxia, spO2 50% and GCS of 6, thus required mechanical ventilation. Patient has failed SBT, twice. Dx: Mechanical Ventilation: MV 5.70, VT 320, Flow 40, RR 18, PEEP 5, FiO30 RX: ABG AM, Chest X-Ray AM RRX: SBT in the morning Gastroenterology: Problem: Stable DDX: Dx: RX: NG tube, Start tube feeding: Vital 1.2 at 20 ml/hr via NG tube by pump. Advance 10 ml every 8 hours to goal rate of 45 ml/hr X 24 hrs. If no IV fluids, water flushes of 30 ml/hr. RRX: GI: Protonix. Renal: Problem: DESIREE, resolved. DDX: Mild DESIREE on admission when patient arrived to the ICU with Cr level >0.3 and change in urine output overnight 50 cc over 12 hour period. Likely secondary to Pre-renal given BUN/Cr >20 but intrinisic injury can not be ruled out. Dx: RX: start tube feeding with water flushes. RRX: Problem: Pseudohyponatremia, resolved DDX: Corrected sodium for hyperglycemia, 140 with osmolarity of 293 hyperglycemia. Dx: RX: RRX: Heme: Problem: Leukocytosis DDX: Likely secondary to UTI E.coli ESBL vs reactive Dx: WBC 13.9, Afebrile RX: RRX: DVT prophylaxis: Compression Device and Lovenox Endo: Problem: Diabetes Mellitus Type II, hyperglycemia DKA (RESOVED) DDX: Moderate DKA likley multi-factorial in the setting of infection from UTI, Dexamethasone, and trauma to the brain from edema noted on MRI and CT. Medical history diabetes mellitus type 2 with home medication that includes Trulicity 0.77 weekly, Glyburide, and lispro (?). Previous A1c (07/19/2024) 9.0. Overnight night total of 50 units of Lispro given. Dx: Blood Glucose on admission 367-->499 (02/08/2025) , Anion gap 21, Beta- hydroxybutyrate 4.4-->Anion 9 and Fasting Glucose of 174. RX: Glargine 20 units HS, continue sliding scale, bedside glucose checks Q6 HR given and Lispro 3 SC 6HRS Sliding Scale: 150-200: 5 units 201-250: 7 units 251-300: 10 units >300: 12 units RRX: ID: Problem: Sepsis secondary to E.coli ESBL DDX: Meeting SIRs criteria at the time of consult with tachycardia, tachypneia, and known source of infection from UTI but not septic as change in vitals likely secondary to acute encephloapthy from meningioma leading to edema Dx: Urinary tract infectio(n as noted on UA with turbid urine, positive Esterase, and WBC 1507; bacteria 4+ Urine Culture: GNR (past medical history of ESBL). Chest x-ray: NO pneumonia and CABG noted. Urine Culture E. Coli ESBL. Pending Blood cutlure RX: Day 3 Zosyn (02/08/2025--) RRX: Stop Ceftriaxone (02/07/2025--02/07/2025) Goals of Care: Overall guarded prognosis given meningioma and edema noted on MRI. Full Code at this time, please contact family with any changes. Goals of care with [facility]. Health Maintenance: Disp: Pt is currently admitted to floors for further management of acute encephloapthy, awaiting weaning off mechanical ventilation FEN: NG tube Vital 1.2 at 20 ml/hr via NG tube by pump. Advance 10 ml every 8 hours to goal rate of 45 ml/hr X 24 hrs. If no IV fluids, water flushes of 30 ml/hr. DVT: LOvenox GI: Protonix Code: Full Code - The patient's plan was discussed with attending Dr. Kirill Heck MD PGY1 Internal Medicine Attending Provider Attestation/Addendum pt seen and examined with resident, agree with above. in summary this is a 89-year-old female who was admitted to the hospital with a meningioma which was compressing the right frontal lobe and causing some surrounding cerebral edema. She is a nonsurgical patient for discussion with 3 different neurosurgical teams at 3 separate facilities. She developed DKA during her hospital stay and was also found to have a UTI with an ESBL. There have been no acute overnight events. She is off sedation. When placed on spontaneous ventilation she has frequent apneic spells requiring reinstatement of AC/VC. Her DKA is currently resolved and she is on scheduled long-acting with a sliding scale. She is on appropriate treatment for her ESBL E. coli. Attempts at a family conversation have been made several times however the family is very resistant to acknowledging the facts. It has been clearly stated that the patient's fluctuating mentation is likely related to her nonoperable meningioma which is causing local compression and surrounding vasogenic edema. She is on Decadron for this. However ultimately the definite treatment is surgical removal and she is not a surgical candidate. She does have a GCS that waxes and wanes and it is unclear if this is due to her primary neurological issues or if there may be some component of superimposed delirium as well. There is no significant change on her physical exam today. She is currently on tube feeds. The family also not commit to a decision regarding reintubation or no reintubation should she reach a point in time where she is able to be extubated. Case discussed with ICU team Labs, imaging and records reviewed Approximately 36 critical care minutes required for evaluation, exam, review, intervention, discussion formulation of plan of care for this critically ill patient with cerebral edema and acute respiratory failure.
[2025-02-10] MEDS: LABETALOL INJ 5 MG/ML VIAL 20 ML 10 MG IVP ×2 (14:31→21:18)
[2025-02-10] MEDS: LORazepam 2 MG/ML VIAL 1 MG IVP (15:09)
--- NOTE | 2025-02-10 16:53 | PC.SS ---
Update: Patient remains intubated. Breathing trial failed. Patient is not on pressor support. NG feedings in place. Patient's family declined to conduct goals of care discussion at current time. financial services professional to be available for discussion at family's discretion.
[2025-02-10] MEDS: INSULIN GLARGINE (Lantus) 5 UNIT/0.05 ML (PER 5 UNITS) 24 UNIT SC (20:49)
[2025-02-10] MEDS: ATORVASTATIN CALCIUM 20 MG TABLET 40 MG PO (20:51)
[2025-02-10] MEDS: ACETAMINOPHEN 325 MG TABLET 650 MG PO (23:18)
--- NOTE | 2025-02-10 23:24 | PD.NEUROPROG ---
Documentation for date of: 02/10/25 Subjective Subjective Interval history: Patient was seen in ICU today with family at the bedside, noted intermittent fluctuation in mental status throughout the day unlike yesterday evening. No sz/myoclonic jerks reported. Failed SBT. Exam - Neurology Vital Signs Temp Pulse Resp BP Pulse Ox O2 Del Method O2 Flow Rate 97.7 F 76 16 165/105 H 100 Mechanical Ventilation 16 02/10/25 20:01 02/10/25 22:00 02/10/25 22:00 02/10/25 22:00 02/10/25 22:00 02/10/25 20:01 02/09/25 09:00 FiO2 35 02/10/25 20:01 Narrative Exam Gen: Elderly female. Intubated. HEENT: NCAT, PERRLA, EOMI, anicteric conjunctivae. CVS: normal S1 and S2. RRR. No M/R/G. Resp: CTA B/L. No rhonchi, rales, crackles or wheezing. Abd: soft, non-tender, non-distended. BS+ in all 4 quadrants. MSK: Good ROM in BUE & BLE. No edema or rash. Neuro: Follows commands inconsistently, moves upper and lower extremities purposefully.Pupils: reactive bilaterally, brainstem function intact. Psych: impossible to assess. Objective Labs 02/10/25 04:40 02/10/25 04:40 Labs: Laboratory Results - last 24 hr 02/10/25 02/10/25 04:40 04:50 WBC 18.8 H RBC 4.69 Hgb 13.4 Hct 39.7 MCV 85 MCH 28.6 MCHC 33.8 RDW Std Deviation 47.6 H Plt Count 490 H D Neut % (Auto) 87 H Lymph % (Auto) 6 L [place] % (Auto) 6 Eos % (Auto) 0 Baso % (Auto) 0 Neut # (Auto) 16.3 H Lymph # (Auto) 1.1 [place] # (Auto) 1.2 H Eos # (Auto) 0.0 Baso # (Auto) 0.0 Immature Gran # (Auto) 0.17 H Absolute Nucleated RBC 0.00 Immature Gran % 1 H Nucleated RBC % 0 Puncture Site Right Radial ABG pH 7.42 ABG pCO2 41 ABG pO2 132 H D ABG HCO3 26 ABG O2 Saturation 100 H ABG Base Excess 2 FiO2 30 Sodium 137 Potassium 4.0 Chloride 103 Carbon Dioxide 24.8 Anion Gap 9 BUN 38 H Creatinine 0.9 Estim Creat Clear Calc 35.0 L eGFR > 60 BUN/Creatinine Ratio 42 H Glucose 358 H D Calculated Osmolality 296 H Calcium 8.3 Corrected Calcium 8.6 Phosphorus 3.2 Magnesium 2.1 Total Bilirubin 0.4 AST 20 ALT 17 Alkaline Phosphatase 155 H Total Protein 5.7 Albumin 3.6 Globulin 2.1 L Albumin/Globulin Ratio 1.7 ABG Interpretation ABG results: 02/08/25 02/08/25 02/08/25 12:11 15:47 18:16 ABG pH 7.42 7.35 ABG pCO2 39 50 H D ABG pO2 299 H 500 H D ABG HCO3 25 27 H ABG O2 Saturation 101 H 101 H ABG Base Excess 1 1 VBG pH 7.46 VBG pCO2 26 L VBG pO2 125 H VBG Base Excess -4 L 02/09/25 02/10/25 04:41 04:50 ABG pH 7.41 7.42 ABG pCO2 42 41 ABG pO2 187 H D 132 H D ABG HCO3 26 26 ABG O2 Saturation 101 H 100 H ABG Base Excess 2 2 VBG pH VBG pCO2 VBG pO2 VBG Base Excess Assessment & Plan Additional Assessment & Plan Additional Plan: The patient is a 89-year-old female with a previous medical history of right frontal meningioma, CVA, CAD status post CABG, hypertension, hyperlipidemia, type 2 diabetes mellitus who was brought in by ambulance from the [facility] due to altered mentation. #Acute encephalopathy #Right frontal lobe meningioma #Right frontal lobe edema #Acute stroke ruled out #History of CVA Patient has been following up with [facility] previously and was admitted in [place], but was not a candidate for surgery. Head CT showed frontal soft tissue tumor 27 mm in transverse dimension, frontal edema with mass effect depression in the right frontal horn 10 mm compared to 7 mm on January 07, 2025. Head and neck CTA showed enhancing right frontal convexity mass most consistent with meningioma, negative for significant arterial stenosis and large vessel occlusions. Brain MRI showed 25 mm right frontal convexity ED mass with extensive surrounding edema with depression of the right frontal horn secondary to the frontal edema. Plan: ? IV dexamethasone 4 mg every 6 hours ? Continue Aspiration precautions - HOB elevation 30 degrees ? Levetiracitam 1000 mg BID - Blood pressure control, goal 130-140/80, avoid hypotension - patient is not a candidate for transfer due to poor prognosis -Family waiting to make the decision after goals of care discussion. #UTI #History of diabetes mellitus #Diabetic ketoacidosis #Hypertensive urgency #History CAD, s/p CABG management by primary team.
[2025-02-11] VITALS (52 sets, daily range): BP systolic 104–204; BP diastolic 57–132; PULSE 71–104; RESP 0–28; TEMP 36.3–36.6; O2SAT 89–100
[2025-02-11] MEDS: hydrALAZINE INJ 20 MG/ML VIAL 10 MG IVP (02:40)
[2025-02-11 04:36] LABS: Base Excess 4 (-3-3); HCO3 27 mEq/L (20-26); Inspired Oxygen, FIO2 30 %; O2 Saturation 100 % (91-98); PCO2 37 mmHg (32.0-48.0); PO2 136 mmHg (83-108); pH, Arterial 7.48 (7.35-7.45)
[2025-02-11 04:42] LABS: Puncture Site Right Radial
[2025-02-11 04:43] LABS: Allen Test Performed/OK
[2025-02-11] MEDS: INSULIN LISPRO (AdmeLOG) 1 UNIT/0.01 ML UNIT SC ×2 (05:27→11:49)
[2025-02-11] MEDS: DEXAMETHASONE SOD PHOS INJ 4 MG/ML VIAL IVP ×3 (05:27→17:11)
[2025-02-11] MEDS: INSULIN LISPRO (AdmeLOG) 1 UNIT/0.01 ML UNIT 3 UNIT SC (05:30)
[2025-02-11] MEDS: PIPER/TAZO 3.375 GM PREMIX 3.375 GM/50 ML BAG IV ×3 (05:30→21:25)
[2025-02-11 05:39] LABS: Alanine Aminotransferase 17 U/L (10-49); Albumin, Serum 3.6 gm/dL (3.4-4.8); Albumin/Globulin Ratio 1.8 (1.2-2.2); Alkaline Phosphatase 163 U/L (46-116); Anion Gap 13 (7-16); Aspartate Amino Transferase 21 U/L (0-34); BUN/Creatinine Ratio 50 Ratio (12-20); Bilirubin,Total 0.4 mg/dL (0.3-1.2); Blood Urea Nitrogen 40 mg/dL (9-23); Calcium 8.3 mg/dL (8.3-10.6); Calcium (Corrected) 8.6 mg/dL (8.5-10.1); Carbon Dioxide 25.9 mMol/L (20.0-31.0); Chloride 101 mMol/L (98-107); Creatinine (Component) 0.8 mg/dL (0.6-1.3); Glucose 280 mg/dL (74-106); Osmolality,Calculated 299 (275-295); Phosphorous 1.9 mg/dL (2.4-5.1); Potassium 3.8 mMol/L (3.4-5.1); Sodium 140 mMol/L (136-145); Total Protein 5.6 gm/dL (5.7-8.2); eGFR > 60 See Note
[2025-02-11 05:41] LABS: Basophils # (Auto) 0.1 Thou/mm3 (0.0-0.2); Basophils % (Auto) 0 % (0-2.5); Eosinophils % (Auto) 0 % (0-10); Hematocrit 38.1 % (36.0-46.0); Hemoglobin 13.2 g/dL (12.0-16.0); Immature Granulocytes % (Auto) 2 % (0-0); Immature Granulocytes Auto 0.36 Thou/mm3 (0.00-0.00); Lymphocytes % (Auto) 5 % (10-50); Mean Corpuscular HGB Conc 34.6 g/dl (31.0-37.0); Mean Corpuscular Hemoglobin 28.5 pg (25.0-35.0); Mean Corpuscular Volume 82 fL (80-100); Monocytes # (Auto) 1.6 Thou/mm3 (0.0-0.8); Monocytes % (Auto) 8 % (0-12); Neutrophils # (Auto) 17.2 Thou/mm3 (1.8-7.7); Neutrophils % (Auto) 85 % (37-80); Nucleated Red Blood Cell % 0 /100 WBC (0); Platelet Count 256 Thou/mm3 (140-440); RDW Standard Deviation 46.5 fL (36.4-46.3); Red Blood Count 4.63 Miln/mm3 (4.00-5.20); White Blood Count 20.2 Thou/mm3 (3.6-11.0)
--- NOTE | 2025-02-11 06:00 | XR_ITS ---
Examination: AP chest single view Technique one AP portable semiupright chest single view Date and time: February [id number] hours Comparison February 10, 2025 INDICATION: Hypoxic respiratory failure this week post intubation FINDINGS: No significant cardiac enlargement CABG Mild vascular congestion. No aspiration pneumonia Tracheal tube tip 3.3 cm above Dona The orogastric tube is in the stomach, the tip is below the level of the film IMPRESSION: Endotracheal tube tip 3.3 cm above Dona No aspiration pneumonia or pulmonary edema
[2025-02-11] MEDS: LABETALOL INJ 5 MG/ML VIAL 20 ML 10 MG IVP ×2 (06:28→20:08)
[2025-02-11] MEDS: CLOPIDOGREL BISULFATE 75 MG TABLET PO (08:45)
[2025-02-11] MEDS: SENNA TABLET 2 TAB PO ×2 (08:45→21:25)
[2025-02-11] MEDS: POLYETHYLENE GLYCOL 17 GM PACKET PO (08:45)
[2025-02-11] MEDS: NAPH,KPH MBDB 1 PACKET (1.5 GM) NG (08:45)
[2025-02-11] MEDS: METOPROLOL TARTRATE 25 MG TABLET PO ×2 (08:45→21:24)
[2025-02-11] MEDS: ENOXAPARIN SOD INJ 40 MG/0.4 ML SYRINGE SC (08:46)
[2025-02-11] MEDS: levETIRAcetam INJ 100 MG/ML VIAL 5ML 1000 MG IVP ×2 (08:46→21:24)
[2025-02-11] MEDS: PANTOPRAZOLE INJ 40 MG VIAL IVP (08:46)
--- NOTE | 2025-02-11 10:10 | PD.RESEVENT ---
Documentation for date of: 02/11/25 Event Note Event Note: Event Note: Code Status Change Extensive discussion with family about overall guarded prognosis given mass effect and edema secondary to meningioma. Patient extubated at 10 AM now on 3 liters of oxygen saturating well with spO2 of 99%. Jennifer, daughter and primary caregiver, would like to change code status to DNR/DNI and does NOT wish to pursue further mechanical ventilation if GCS worsens. Pending social work follow-up. - The patient's plan was discussed with attending Dr. Kirill Heck MD PGY1 Internal Medicine
--- NOTE | 2025-02-11 10:43 | ESPR_ITS ---
Documentation for date of: 02/11/25 Subjective Subjective Interval history: Patient is 89-year-old female with a past medical history of meningioma, CVA, CABG, hypertension, hyperlipidemia, type 2 diabetes mellitus, Brought in by EMS from rehab facility, for altered mental status. Spoke to patient's daughter Jennifer, who stated that she she had visited the patient last night, at the facility at 8 PM, and the patient was at her baseline mental status, conversational alert and oriented x 3 and able to move her extremities without any weakness. At the time of evaluation, the patient is found to be obtunded, responsive only to pain full stimuli, no movement elicited on the left upper extremity, also free following left upper extremity, per daughter, nursing staff from rehab facility told even at 6 AM patient's mental status had declined. LWK 8 pm. In the ER initial vitals were 213/97, heart rate 93/min, temperature 102F, CBC showed WBC 5.2, hemoglobin 13.6, platelet 24, normal coagulation profile, mild hyponatremia sodium 133, normal renal function, lactic acid 1.7, magnesium 1.3, which was repleted, normal liver function, mild alkaline phosphatase elevation, negative Pro-Blas. Urinalysis showed UTI. The patient was given IV fluid bolus, ceftriaxone, IV magnesium, subcu insulin, and acetaminophen IV. ER provider, initially tried to transfer the patient back to [place], where she was followed for her meningioma and evaluated by neurosurgeon, eventually discharged to rehab facility and deemed poor prognosis, no surgical intervention was advised. But transfer was declined due to capacity. ER provider spoke to neurologist Dr. Lopez, who recommended starting the patient on IV steroids for cerebral edema. Head CT showed frontal edema, with mass effect, depressed and in the frontal horn, 10 mm compared to 7 mm on January 06, 2025. Head CTA was done which was negative for large vessel occlusion. Patient will be admitted to medical floor for for further observation management. Past medical history: History of meningioma?was recently admitted in [place] for neurosurgical evaluation, neurosurgery recommended conservative management due to poor prognosis, history of CABG, history of CVA, history of hyperlipidemia, history of type 2 diabetes mellitus. Social history: N/A 02/08/2025: ICU team consulted given DKA and acute encephalopathy and soft tissue tumor mass w/ calcified rim and transverse dimension of mass 27 mm producing mass effect with edema noted secondary to UTI. Concern that patient could not protect airway. Recent hospitalized at [facility] in [place] after being transferred directly from the ER for management of meningioma with an accepting neurosurgeon physician. Family at bedside is unsure of definitive diagnosis given at hospital in [place]. Explained overall poor prognosis given meningioma noted on CT and MRI with mass effect from edema. Recommendations are to treat underlying conditions of DKA and UTI. Goals of care discussion with daughters present at bedside, family would like additional time to take home and CODE STATUS. 02/09/2025: Overnight, minimal urine outpt over the last 12 hours. Repeat Renal Panel at 1 PM. Continue to monitor urine output. Propofol 20 wean off near midnight and Fentanly decreased from 75-->25. Diectician consulted for tube feedings, plan to start tube feedings today. Despite speaking to a total of 3 neurosurgeons, no transfer planned or acute surgical intervention recommended at this time. Plan for spontaneous breathing trial. Bradycardia HR 50-60, if worsen switch Metoprolol tartrate to a calcium channel ruth ann. 02/10/2025: Overnight, one time dose of hydralazine given. Patient waxes and wains. Overall no changes in medical changes and patient remains full code. Failed SBT, RR 5-->patient returned to AC/VC. Family is open to goals of care w/ [place]. 02/11/2025: Overnight, patient given one time dose of Hydralazine 10 mg IVP X 1. Patient examined this morning at bedside, alert and following commands. Right upper extremity, 2/5. Left upper extremity 1/5. Patient waxes and wanes. SBT planned for today-->Patient extubated at 10:00 AM. Jennifer and , daughters, changed code status from Full Code --->DNR/DNI. Exam Vital Signs Temp Pulse Resp BP Pulse Ox O2 Del Method O2 Flow Rate 97.3 F 87 22 H 149/75 H 100 Mechanical Ventilation 16 02/11/25 08:00 02/11/25 08:45 02/11/25 08:00 02/11/25 08:45 02/11/25 08:00 02/11/25 08:00 02/09/25 09:00 FiO2 40 02/11/25 08:00 Narrative Exam General Appearance: Alert & Oriented X1, thin female who is lying in bed in no acute distress HEENT: Skull symmetrical and atraumatic. Conjunctivae pale pink and moist. Oral mucos dry. Pupils equal, round, reactive to light and accommodation but diminished. Cardio: Normal Rate and Rhythm with S1 and S2 heart sounds. No murmurs or extra heart sounds auscultated. No bruits on carotid auscultation. No peripheral edema or cyanosis. Lungs: Symmetric with good expansion. Chest and back non-tender. Breath sounds vesicular without crackles, wheezing or rhonchi Abdomen: Non-tender, Non-distended, Normal Reactive Bowel Sounds Neuro: YES Alert, YES cooperative, NO oriented to person, No place, and No time. Aphasic. R Upper motor strength 2/5 and L. upper motor strength 1/5. Lower motor strength 1/5 but motor strength waxes and wanes. Left Facial droop noted. Objective Labs 02/11/25 04:30 02/11/25 04:30 Labs: Laboratory Results - last 24 hr 02/11/25 02/11/25 04:24 04:30 WBC 20.2 H RBC 4.63 Hgb 13.2 Hct 38.1 MCV 82 MCH 28.5 MCHC 34.6 RDW Std Deviation 46.5 H Plt Count 256 D Neut % (Auto) 85 H Lymph % (Auto) 5 L [place] % (Auto) 8 Eos % (Auto) 0 Baso % (Auto) 0 Neut # (Auto) 17.2 H Lymph # (Auto) 1.0 [place] # (Auto) 1.6 H Eos # (Auto) 0.0 Baso # (Auto) 0.1 Immature Gran # (Auto) 0.36 H Absolute Nucleated RBC 0.00 Immature Gran % 2 H Nucleated RBC % 0 Puncture Site Right Radial ABG pH 7.48 H ABG pCO2 37 ABG pO2 136 H ABG HCO3 27 H ABG O2 Saturation 100 H ABG Base Excess 4 H FiO2 30 Sodium 140 Potassium 3.8 Chloride 101 Carbon Dioxide 25.9 Anion Gap 13 BUN 40 H Creatinine 0.8 Estim Creat Clear Calc 36.0 L eGFR > 60 BUN/Creatinine Ratio 50 H Glucose 280 H D Calculated Osmolality 299 H Calcium 8.3 Corrected Calcium 8.6 Phosphorus 1.9 L Magnesium 2.0 Total Bilirubin 0.4 AST 21 ALT 17 Alkaline Phosphatase 163 H Total Protein 5.6 L Albumin 3.6 Globulin 2.0 L Albumin/Globulin Ratio 1.8 ABG Interpretation ABG results: 02/08/25 02/08/25 02/08/25 12:11 15:47 18:16 ABG pH 7.42 7.35 ABG pCO2 39 50 H D ABG pO2 299 H 500 H D ABG HCO3 25 27 H ABG O2 Saturation 101 H 101 H ABG Base Excess 1 1 VBG pH 7.46 VBG pCO2 26 L VBG pO2 125 H VBG Base Excess -4 L 02/09/25 02/10/25 02/11/25 04:41 04:50 04:24 ABG pH 7.41 7.42 7.48 H ABG pCO2 42 41 37 ABG pO2 187 H D 132 H D 136 H ABG HCO3 26 26 27 H ABG O2 Saturation 101 H 100 H 100 H ABG Base Excess 2 2 4 H VBG pH VBG pCO2 VBG pO2 VBG Base Excess Quality Measures Quality Measures VTE prophylaxis Advance care planning discussed with:: child (Jennifer (primary caregiver and daughter) and . ) Assessment & Plan Assessment Current Active Medications: Generic Name Dose Route Start Last Admin Trade Name Freq PRN Reason Stop Dose Admin Acetaminophen 650 mg 02/08/25 01:36 02/10/25 23:18 Acetaminophen 325 Mg Tablet PO 03/10/25 01:35 650 mg Q6H PRN Administration PAIN OR FEVER > 101 Atorvastatin Calcium 40 mg 02/08/25 21:00 02/10/25 20:51 Atorvastatin Calcium 20 Mg Tablet PO 03/10/25 20:59 40 mg HS ORALIA Administration Clopidogrel Bisulfate 75 mg 02/08/25 09:00 02/11/25 08:45 Clopidogrel Bisulfate 75 Mg Tablet PO 03/10/25 08:59 75 mg QDAY ORALIA Administration Dexamethasone Sodium Phosphate 4 mg 02/08/25 06:00 02/11/25 05:27 Dexamethasone Sod Phos Inj 4 Mg/Ml Vial IVP 03/10/25 05:59 4 mg Q6HR ORALIA Administration Protocol Dextrose 25 ml 02/08/25 01:40 Dextrose 50%-Water Inj 50 Ml Syringe IV 03/10/25 01:39 Q15MIN PRN BG 50-70 responsive npo pt Dextrose 50 ml 02/08/25 01:40 Dextrose 50%-Water Inj 50 Ml Syringe IV 03/10/25 01:39 Q15MIN PRN BG <50 OR BG <70 & pt unresponsive Enoxaparin Sodium 40 mg 02/09/25 09:00 02/11/25 08:46 Enoxaparin Sod Inj 40 Mg/0.4 Ml Syringe SC 02/23/25 08:59 40 mg QDAY ORALIA Administration Glucagon 1 mg 02/08/25 01:40 Glucagon Inj 1 Mg Vial IM Q15MIN PRN BG <70, and no IV access Piperacillin/Tazobactam/Dextrose 3.375 gm in 50 mls @ 12.5 mls/hr 02/08/25 22:00 02/11/25 05:30 Zosyn IV 02/15/25 21:59 12.5 mls/hr Q8HR ORALIA Administration Norepinephrine/Dextrose 8 mg in 250 mls @ 6.379 mls/hr 02/08/25 17:06 Levophed In D5w 8mg/250ml IV 03/10/25 17:05 .Q24H PRN PER PROTOCOL Protocol 0.05 MCG/KG/MIN Propofol 1,000 mg in 100 mls @ 2.041 mls/hr 02/08/25 17:12 02/09/25 00:00 Diprivan Ivpb IV 03/10/25 17:11 0 mcg/kg/min .Q24H PRN 0 mls/hr PER PROTOCOL Titration Protocol 5 MCG/KG/MIN Fentanyl Citrate 2,500 mcg in 250 mls @ 2.5 mls/hr 02/08/25 18:44 02/09/25 09:00 Sublimaze Inj 2,500 Mcg/250 Ml Bag IV 02/13/25 18:43 0 mcg/hr .Q24H PRN 0 mls/hr PER PROTOCOL Titration Protocol 25 MCG/HR Insulin Glargine 30 unit 02/11/25 21:00 Insulin Glargine (Lantus) 5 Unit/0.05 Ml (Per 5 Units) SC 03/13/25 20:59 HS ORALIA Insulin Human Lispro 0 unit 02/09/25 12:00 02/11/25 05:27 Insulin Lispro (Admelog) 1 Unit/0.01 Ml Unit SC 03/11/25 11:59 4 unit Q6HR ORALIA Administration Protocol Insulin Human Lispro 5 unit 02/11/25 12:00 Insulin Lispro (Admelog) 1 Unit/0.01 Ml Unit SC 03/13/25 11:59 Q6HR ORALIA Labetalol HCl 10 mg 02/10/25 07:16 02/11/25 06:28 Labetalol Inj 5 Mg/Ml Vial 20 Ml IVP 03/10/25 01:39 10 mg Q6HR PRN Administration SBP > 150 Levetiracetam 1,000 mg 02/08/25 09:00 02/11/25 08:46 Levetiracetam Inj 100 Mg/Ml Vial 5ml IVP 03/10/25 08:59 1,000 mg Q12HR ORALIA Administration Metoprolol Tartrate 25 mg 02/08/25 09:00 02/11/25 08:45 Metoprolol Tartrate 25 Mg Tablet PO 03/10/25 08:59 25 mg BID ORALIA Administration Ondansetron HCl 4 mg 02/08/25 01:36 Ondansetron Inj 2 Mg/Ml Inj 2 Ml IV 03/10/25 01:35 Q6H PRN NAUSEA OR VOMITING Protocol Pantoprazole Sodium 40 mg 02/09/25 09:00 02/11/25 08:46 Pantoprazole Inj 40 Mg Vial IVP 03/11/25 08:59 40 mg QDAY ORALIA Administration Polyethylene Glycol 17 gm 02/10/25 09:00 02/11/25 08:45 Polyethylene Glycol 17 Gm Packet PO 03/12/25 08:59 17 gm QDAY ORALIA Administration Sennosides 2 tab 02/10/25 09:00 02/11/25 08:45 Senna Tablet PO 03/12/25 08:59 2 tab BID ORALIA Administration Protocol Plan Patient is 89-year-old female with a past medical history of meningioma, CVA, CABG, hypertension, hyperlipidemia, type 2 diabetes mellitus who was admitted on 02/07/2025 for further observation. Central Nervous System: Problem: Acute Encephalopathy, history of CVA DDX: likely secondary to mass producing lesion noted on CT scan with edema. Meninigioma noted on imagining per chart review in 2020. Left upper extremity decrease motor function likely secondary to mass effect on MCA. vs infectious cause from UTI leading to delirium vs Acedemia Dx: Head CT (02/07/2025): Again noted right frontal soft tissue tumor mass with calcified rim, transverse dimension 27 mm. Frontal edema is again depicted with additional mass effect depressing the right frontal horn, currently 10 mm compared to 7 mm on January 07, 2025. Head/Neck CTA: No significant neck arterial stenoses, No cerebral large vessel arterial occlusions, thrombus, Enhancing right frontal convexity mass most consistent with meningioma. Brain MRI w/ MRA: Negative for acute hemorrhage, Negative for acute infarct, and 25 mm right frontal convexity mass with extensive surrounding edema with depression of the right frontal horn secondary to the frontal edema RX: Dexamethasone 4 mg IVP Q6HR, Clopidogrel 75 mg qday, and Levetiracetam 1000 mg BID RRX: Neuro-surgery second consultation; per neurology recommendations systolic blood pressure 130, Neurology consulted, Dr. Bunn, consulted Cardiovascular: Problem: Hypertension DDX: Past medical CABG with metroprolol 25 mg BID PO as home medication taht was resumed in hospitals Dx: EKG Sinus rhythm RX: , Metroplolol 25 mg PO BID, and Labetalol 10 mg IVP, if SBP >150. RRX: Monitor Blood pressure, consider Hydralazine if HR <60, History CABG and Hyperlipedemia -continue Atorvastatin 40 mg PO HS Bradycardia, resolved Respiratory: Problem: Acute Hypoxic respiratory failure, required mechanical ventilation, resolved. DDX: Patient experienced a rapid response secondary to hypoxia, spO2 50% and GCS of 6, thus required mechanical ventilation. Patient has failed SBT, twice. Dx: Mechanical Ventilation: MV 5.70, VT 320, Flow 40, RR 18, PEEP 5, FiO30--> SBT, RSBI likely success and NIF -26 RX: ABG AM, Chest X-Ray AM RRX: SBT in the morning-->planned extubation Gastroenterology: Problem: Stable DDX: Dx: RX: NG tube, Start tube feeding: Vital 1.2 at 20 ml/hr via NG tube by pump. Advance 10 ml every 8 hours to goal rate of 45 ml/hr X 24 hrs. If no IV fluids, water flushes of 30 ml/hr. RRX: NG tube feeding, paused, Nurse swallow screen GI: Protonix. Renal: Problem: DESIREE, resolved. DDX: Mild DESIREE on admission when patient arrived to the ICU with Cr level >0.3 and change in urine output overnight 50 cc over 12 hour period. Likely secondary to Pre-renal given BUN/Cr >20 but intrinisic injury can not be ruled out. Dx: RX: start tube feeding with water flushes. RRX: Problem: Pseudohyponatremia, resolved DDX: Corrected sodium for hyperglycemia, 140 with osmolarity of 293 hyperglycemia. Dx: RX: RRX: Heme: Problem: Leukocytosis DDX: Leukocytosis secondary to IV Dexamethasone vs Likely secondary to UTI E.coli ESBL vs reactive Dx: WBC 20, Afebrile RX: RRX: DVT prophylaxis: Compression Device and Lovenox Endo: Problem: Diabetes Mellitus Type II, hyperglycemia DKA (RESOVED) DDX: Moderate DKA likley multi-factorial in the setting of infection from UTI, Dexamethasone, and trauma to the brain from edema noted on MRI and CT. Medical history diabetes mellitus type 2 with home medication that includes Trulicity 0.77 weekly, Glyburide, and lispro (?). Previous A1c (07/19/2024) 9.0. Overnight night total insulin dispensed 67 (Lispro and Glargine). Hyperglycemia likely secondary to steriod use. Dx: Blood Glucose on admission 367-->499 (02/08/2025) , Anion gap 21, Beta- hydroxybutyrate 4.4-->Anion 9 and Fasting Glucose of 174. RX: Glargine 30 units HS, continue sliding scale, Lispro 5 SC 6HRS, bedside glucose checks Q6 HR Sliding Scale: 150-200: 5 units 201-250: 7 units 251-300: 10 units >300: 12 units RRX: ID: Problem: Sepsis secondary to E.coli ESBL DDX: Meeting SIRs criteria at the time of consult with tachycardia, tachypneia, and known source of infection from UTI but not septic as change in vitals likely secondary to acute encephloapthy from meningioma leading to edema Dx: Urinary tract infectio(n as noted on UA with turbid urine, positive Esterase, and WBC 1507; bacteria 4+ Urine Culture: GNR (past medical history of ESBL). Chest x-ray: NO pneumonia and CABG noted. Urine Culture E. Coli ESBL. Pending Blood cutlure RX: Day 4 Zosyn (02/08/2025--) RRX: Stop Ceftriaxone (02/07/2025--02/07/2025) Goals of Care: Overall guarded prognosis given meningioma and edema noted on MRI. Code status changed to DNR/DNI by family. Health Maintenance: Disp: Pt is currently admitted to floors for further management of acute encephloapthy, awaiting weaning off mechanical ventilation-->6 hours NPO then access FEN: NG tube stopped as patient is being extubated & pending nurse swallow DVT: Lovenox GI: Protonix Code: Full Code - The patient's plan was discussed with attending Dr. Kirill Heck MD PGY1 Internal Medicine Attending Provider Attestation/Addendum pt seen and examined with resident, agree with above. in brief this is a 89yo F in the ICU with resp failure , meningioma with compression and cerebral edema on decadron. pts UTI is improving and DKA has resolved. she is awake and appears uncomfortable on the vent. she is off sedation and on PSV . discussion held with family regarding reintubation and trach vs no reintubation , today they have finally come to a decision of DNR/DNI. will extubate today. No significant change in her physical exam though she does appear more agitated today. case d/w ICU team labs, imaging, records reviewed ~37ccmin required for eval, exam, review, intervention, discussion and formulation of POC for this critically ill pt with poor prognosis at high risk for ongoing decompensation.
--- NOTE | 2025-02-11 11:37 | PC.SS ---
Update: Patient was extubated this AM. Code status was changed to DNR/DNI. POLST form was completed.
[2025-02-11] MEDS: INSULIN LISPRO (AdmeLOG) 1 UNIT/0.01 ML UNIT 5 UNIT SC (11:47)
--- NOTE | 2025-02-11 15:13 | ESPR_ITS ---
Documentation for date of: 02/11/25 Subjective Subjective Interval history: Pt examined at bedside today. No acute overnight events. Patient was extubated successfully today. Patient seems to be alert and oriented to time place currently. Patient is able to respond to some questions, however seems a bit lethargic at this time. Will continue to evaluate patient and make changes as she will be downgraded to telemetry. Exam Vital Signs Temp Pulse Resp BP Pulse Ox O2 Del Method O2 Flow Rate 97.7 F 75 20 151/80 H 89 L Nasal Cannula 4 02/11/25 12:01 02/11/25 12:01 02/11/25 12:01 02/11/25 12:01 02/11/25 12:01 02/11/25 12:01 02/11/25 12:01 FiO2 40 02/11/25 08:00 Narrative Exam General Appearance: Alert & Oriented X1, thin female who is lying in bed in no acute distress HEENT: Skull symmetrical and atraumatic. Conjunctivae pale pink and moist. Oral mucos dry. Pupils equal, round, reactive to light and accommodation but diminished. Cardio: Normal Rate and Rhythm with S1 and S2 heart sounds. No murmurs or extra heart sounds auscultated. No bruits on carotid auscultation. No peripheral edema or cyanosis. Lungs: Symmetric with good expansion. Chest and back non-tender. Breath sounds vesicular without crackles, wheezing or rhonchi Abdomen: Non-tender, Non-distended, Normal Reactive Bowel Sounds Neuro: YES Alert, YES cooperative, NO oriented to person, No place, and No time. Aphasic. R Upper motor strength 2/5 and L. upper motor strength 1/5. Lower motor strength 1/5 but motor strength waxes and wanes. Left Facial droop noted. Objective Labs 02/12/25 04:50 02/12/25 04:50 Labs: Laboratory Results - last 24 hr 02/11/25 02/11/25 04:24 04:30 WBC 20.2 H RBC 4.63 Hgb 13.2 Hct 38.1 MCV 82 MCH 28.5 MCHC 34.6 RDW Std Deviation 46.5 H Plt Count 256 D Neut % (Auto) 85 H Lymph % (Auto) 5 L Faulkner % (Auto) 8 Eos % (Auto) 0 Baso % (Auto) 0 Neut # (Auto) 17.2 H Lymph # (Auto) 1.0 Faulkner # (Auto) 1.6 H Eos # (Auto) 0.0 Baso # (Auto) 0.1 Immature Gran # (Auto) 0.36 H Absolute Nucleated RBC 0.00 Immature Gran % 2 H Nucleated RBC % 0 Puncture Site Right Radial ABG pH 7.48 H ABG pCO2 37 ABG pO2 136 H ABG HCO3 27 H ABG O2 Saturation 100 H ABG Base Excess 4 H FiO2 30 Sodium 140 Potassium 3.8 Chloride 101 Carbon Dioxide 25.9 Anion Gap 13 BUN 40 H Creatinine 0.8 Estim Creat Clear Calc 36.0 L eGFR > 60 BUN/Creatinine Ratio 50 H Glucose 280 H D Calculated Osmolality 299 H Calcium 8.3 Corrected Calcium 8.6 Phosphorus 1.9 L Magnesium 2.0 Total Bilirubin 0.4 AST 21 ALT 17 Alkaline Phosphatase 163 H Total Protein 5.6 L Albumin 3.6 Globulin 2.0 L Albumin/Globulin Ratio 1.8 ABG Interpretation ABG results: 02/08/25 02/08/25 02/08/25 12:11 15:47 18:16 ABG pH 7.42 7.35 ABG pCO2 39 50 H D ABG pO2 299 H 500 H D ABG HCO3 25 27 H ABG O2 Saturation 101 H 101 H ABG Base Excess 1 1 VBG pH 7.46 VBG pCO2 26 L VBG pO2 125 H VBG Base Excess -4 L 02/09/25 02/10/25 02/11/25 04:41 04:50 04:24 ABG pH 7.41 7.42 7.48 H ABG pCO2 42 41 37 ABG pO2 187 H D 132 H D 136 H ABG HCO3 26 26 27 H ABG O2 Saturation 101 H 100 H 100 H ABG Base Excess 2 2 4 H VBG pH VBG pCO2 VBG pO2 VBG Base Excess Quality Measures Quality Measures VTE prophylaxis Advance care planning discussed with:: patient and child Assessment & Plan Assessment Current Active Medications: Generic Name Dose Route Start Last Admin Trade Name Freq PRN Reason Stop Dose Admin Acetaminophen 650 mg 02/08/25 01:36 02/10/25 23:18 Acetaminophen 325 Mg Tablet PO 03/10/25 01:35 650 mg Q6H PRN Administration PAIN OR FEVER > 101 Atorvastatin Calcium 40 mg 02/08/25 21:00 02/10/25 20:51 Atorvastatin Calcium 20 Mg Tablet PO 03/10/25 20:59 40 mg HS ORALIA Administration Clopidogrel Bisulfate 75 mg 02/08/25 09:00 02/11/25 08:45 Clopidogrel Bisulfate 75 Mg Tablet PO 03/10/25 08:59 75 mg QDAY ORALIA Administration Dexamethasone Sodium Phosphate 4 mg 02/08/25 06:00 02/11/25 11:47 Dexamethasone Sod Phos Inj 4 Mg/Ml Vial IVP 03/10/25 05:59 4 mg Q6HR ORALIA Administration Protocol Dextrose 25 ml 02/08/25 01:40 Dextrose 50%-Water Inj 50 Ml Syringe IV 03/10/25 01:39 Q15MIN PRN BG 50-70 responsive npo pt Dextrose 50 ml 02/08/25 01:40 Dextrose 50%-Water Inj 50 Ml Syringe IV 03/10/25 01:39 Q15MIN PRN BG <50 OR BG <70 & pt unresponsive Enoxaparin Sodium 40 mg 02/09/25 09:00 02/11/25 08:46 Enoxaparin Sod Inj 40 Mg/0.4 Ml Syringe SC 02/23/25 08:59 40 mg QDAY ORALIA Administration Glucagon 1 mg 02/08/25 01:40 Glucagon Inj 1 Mg Vial IM Q15MIN PRN BG <70, and no IV access Piperacillin/Tazobactam/Dextrose 3.375 gm in 50 mls @ 12.5 mls/hr 02/08/25 22:00 02/11/25 14:03 Zosyn IV 02/15/25 21:59 12.5 mls/hr Q8HR ORALIA Administration Insulin Glargine 30 unit 02/11/25 21:00 Insulin Glargine (Lantus) 5 Unit/0.05 Ml (Per 5 Units) SC 03/13/25 20:59 HS ORALIA Insulin Human Lispro 0 unit 02/09/25 12:00 02/11/25 11:49 Insulin Lispro (Admelog) 1 Unit/0.01 Ml Unit SC 03/11/25 11:59 4 unit Q6HR ORALIA Administration Protocol Insulin Human Lispro 5 unit 02/11/25 12:00 02/11/25 11:47 Insulin Lispro (Admelog) 1 Unit/0.01 Ml Unit SC 03/13/25 11:59 5 unit Q6HR ORALIA Administration Labetalol HCl 10 mg 05/29/25 07:16 02/11/25 06:28 Labetalol Inj 5 Mg/Ml Vial 20 Ml IVP 03/10/25 01:39 10 mg Q6HR PRN Administration SBP > 150 Levetiracetam 1,000 mg 02/08/25 09:00 02/11/25 08:46 Levetiracetam Inj 100 Mg/Ml Vial 5ml IVP 03/10/25 08:59 1,000 mg Q12HR ORALIA Administration Metoprolol Tartrate 25 mg 02/08/25 09:00 02/11/25 08:45 Metoprolol Tartrate 25 Mg Tablet PO 03/10/25 08:59 25 mg BID ORALIA Administration Ondansetron HCl 4 mg 02/08/25 01:36 Ondansetron Inj 2 Mg/Ml Inj 2 Ml IV 03/10/25 01:35 Q6H PRN NAUSEA OR VOMITING Protocol Pantoprazole Sodium 40 mg 02/09/25 09:00 02/11/25 08:46 Pantoprazole Inj 40 Mg Vial IVP 03/11/25 08:59 40 mg QDAY ORALIA Administration Sennosides 2 tab 02/10/25 09:00 02/11/25 08:45 Senna Tablet PO 03/12/25 08:59 2 tab BID ORALIA Administration Protocol Plan Assessment Patient is 89-year-old female with a past medical history of meningioma, CVA, CABG, hypertension, hyperlipidemia, type 2 diabetes mellitus who was admitted on 02/07/2025 for further observation. Central Nervous System: Problem: Acute Encephalopathy, history of CVA DDX: likely secondary to mass producing lesion noted on CT scan with edema. Meninigioma noted on imagining per chart review in 2020. Left upper extremity decrease motor function likely secondary to mass effect on MCA. vs infectious cause from UTI leading to delirium vs Acedemia Dx: Head CT (02/07/2025): Again noted right frontal soft tissue tumor mass with calcified rim, transverse dimension 27 mm. Frontal edema is again depicted with additional mass effect depressing the right frontal horn, currently 10 mm compared to 7 mm on January 07, 2025. Head/Neck CTA: No significant neck arterial stenoses, No cerebral large vessel arterial occlusions, thrombus, Enhancing right frontal convexity mass most consistent with meningioma. Brain MRI w/ MRA: Negative for acute hemorrhage, Negative for acute infarct, and 25 mm right frontal convexity mass with extensive surrounding edema with depression of the right frontal horn secondary to the frontal edema RX: Dexamethasone 4 mg IVP Q6HR, Clopidogrel 75 mg qday, and Levetiracetam 1000 mg BID RRX: Neuro-surgery second consultation; per neurology recommendations systolic blood pressure 130, Neurology consulted, Dr. Bunn, consulted Cardiovascular: Problem: Hypertension DDX: Past medical CABG with metroprolol 25 mg BID PO as home medication taht was resumed in hospitals Dx: EKG Sinus rhythm RX: , Metroplolol 25 mg PO BID, and Labetalol 10 mg IVP, if SBP >150. RRX: Monitor Blood pressure, consider Hydralazine if HR <60, History CABG and Hyperlipedemia -continue Atorvastatin 40 mg PO HS Bradycardia, resolved Respiratory: Problem: Acute Hypoxic respiratory failure, required mechanical ventilation, resolved. DDX: Patient experienced a rapid response secondary to hypoxia, spO2 50% and GCS of 6, thus required mechanical ventilation. Patient has failed SBT, twice. Dx: Mechanical Ventilation: MV 5.70, VT 320, Flow 40, RR 18, PEEP 5, FiO30--> SBT, RSBI likely success and NIF -26 RX: ABG AM, Chest X-Ray AM RRX: SBT in the morning-->planned extubation Gastroenterology: Problem: Stable DDX: Dx: RX: NG tube, Start tube feeding: Vital 1.2 at 20 ml/hr via NG tube by pump. Advance 10 ml every 8 hours to goal rate of 45 ml/hr X 24 hrs. If no IV fluids, water flushes of 30 ml/hr. RRX: NG tube feeding, paused, Nurse swallow screen GI: Protonix. Renal: Problem: DESIREE, resolved. DDX: Mild DESIREE on admission when patient arrived to the ICU with Cr level >0.3 and change in urine output overnight 50 cc over 12 hour period. Likely secondary to Pre-renal given BUN/Cr >20 but intrinisic injury can not be ruled out. Dx: RX: start tube feeding with water flushes. RRX: Problem: Pseudohyponatremia, resolved DDX: Corrected sodium for hyperglycemia, 140 with osmolarity of 293 hyperglycemia. Dx: RX: RRX: Heme: Problem: Leukocytosis DDX: Leukocytosis secondary to IV Dexamethasone vs Likely secondary to UTI E.coli ESBL vs reactive Dx: WBC 20, Afebrile RX: RRX: DVT prophylaxis: Compression Device and Lovenox Endo: Problem: Diabetes Mellitus Type II, hyperglycemia DKA (RESOVED) DDX: Moderate DKA likley multi-factorial in the setting of infection from UTI, Dexamethasone, and trauma to the brain from edema noted on MRI and CT. Medical history diabetes mellitus type 2 with home medication that includes Trulicity 0.77 weekly, Glyburide, and lispro (?). Previous A1c (07/19/2024) 9.0. Overnight night total insulin dispensed 67 (Lispro and Glargine). Hyperglycemia likely secondary to steriod use. Dx: Blood Glucose on admission 367-->499 (02/08/2025) , Anion gap 21, Beta- hydroxybutyrate 4.4-->Anion 9 and Fasting Glucose of 174. RX: Glargine 30 units HS, continue sliding scale, Lispro 5 SC 6HRS, bedside glucose checks Q6 HR Sliding Scale: 150-200: 5 units 201-250: 7 units 251-300: 10 units >300: 12 units RRX: ID: Problem: Sepsis secondary to E.coli ESBL DDX: Meeting SIRs criteria at the time of consult with tachycardia, tachypneia, and known source of infection from UTI but not septic as change in vitals likely secondary to acute encephloapthy from meningioma leading to edema Dx: Urinary tract infectio(n as noted on UA with turbid urine, positive Esterase, and WBC 1507; bacteria 4+ Urine Culture: GNR (past medical history of ESBL). Chest x-ray: NO pneumonia and CABG noted. Urine Culture E. Coli ESBL. Pending Blood cutlure RX: Day 4 Zosyn (02/08/2025--) RRX: Stop Ceftriaxone (02/07/2025--02/07/2025) #Health Maintenance Disposition: Downgrade from ICU to Telemetry DVT prophylaxis: Lovenox GI prophylaxis: Protonix Diet: NG tube feedings, will be evaluate by speech tomorrow CODE STATUS: DNR Patient seen and care discussed with attending physician, Dr. Maria Del Carmen Teague, PGY-1 Attending Provider Attestation/Addendum I reviewed labs, imaging, EKG, home medications and prior available records. Face to face evaluation was performed by me. I have personally examined the patient and discussed assessment and plan with the IM team. I reviewed the resident note and agree with the plan with exceptions as below. Acute encephalopathy Meningioma Cerebral edema Acute ESBL E. coli UTI DESIREE, resolved DKA, resolved Uncontrolled diabetes mellitus with hyperglycemia, insulin-dependent type 2 Goals of care discussion Her acute encephalopathy is likely in setting of cerebral edema from meningioma versus acute UTI versus DKA Continue IV dexamethasone frequent neurochecks Continue IV Keppra Discussed with transfer center: She is not a surgical candidate for which no transfer was processed Treatment of UTI with IV Zosyn Continue long-acting insulin plus sliding scale insulin. Adjust based on future fingersticks She is now DNR/DNI. Family is aware of the poor prognosis but wants to explore different options
[2025-02-11] MEDS: INSULIN GLARGINE (Lantus) 5 UNIT/0.05 ML (PER 5 UNITS) 30 UNIT SC (21:23)
[2025-02-11] MEDS: ATORVASTATIN CALCIUM 20 MG TABLET 40 MG PO (21:23)
[2025-02-12] VITALS (33 sets, daily range): BP systolic 98–188; BP diastolic 64–147; PULSE 74–96; RESP 15–35; TEMP 36.1–36.3; O2SAT 86–98
--- NOTE | 2025-02-12 00:01 | XR_ITS ---
Examination: AP chest single view TECHNIQUE: AP upright portable chest single view Date and time: February 12, 2025 0616 hours Comparison February 11, 2025 INDICATIONS: History hypoxic respiratory failure FINDINGS: The patient has been extubated, and the patient's orogastric tube has been removed No major cardiac enlargement CABG No pneumonia or pulmonary edema Prominent osteopenia IMPRESSION: No pneumonia or pulmonary edema
[2025-02-12] MEDS: DEXAMETHASONE SOD PHOS INJ 4 MG/ML VIAL IVP ×3 (00:56→12:18)
--- NOTE | 2025-02-12 01:32 | PC.NURSE ---
attempted reinserting NG tube x6, made aware. per MD continue to follow protocol on Q6 lispro insulin.
[2025-02-12] MEDS: LABETALOL INJ 5 MG/ML VIAL 20 ML 10 MG IVP (03:16)
[2025-02-12] MEDS: INSULIN LISPRO (AdmeLOG) 1 UNIT/0.01 ML UNIT SC (05:26)
[2025-02-12] MEDS: PIPER/TAZO 3.375 GM PREMIX 3.375 GM/50 ML BAG IV (05:27)
[2025-02-12 05:46] LABS: Alanine Aminotransferase 19 U/L (10-49); Albumin, Serum 3.5 gm/dL (3.4-4.8); Albumin/Globulin Ratio 1.8 (1.2-2.2); Alkaline Phosphatase 119 U/L (46-116); Anion Gap 14 (7-16); Aspartate Amino Transferase 35 U/L (0-34); BUN/Creatinine Ratio 37 Ratio (12-20); Bilirubin,Total 0.7 mg/dL (0.3-1.2); Blood Urea Nitrogen 26 mg/dL (9-23); Calcium 8.2 mg/dL (8.3-10.6); Calcium (Corrected) 8.6 mg/dL (8.5-10.1); Carbon Dioxide 28.5 mMol/L (20.0-31.0); Chloride 101 mMol/L (98-107); Creatinine (Component) 0.7 mg/dL (0.6-1.3); Estimated Creatinine Clearance 41.1 mL/min (>60); Globulin 1.9 gm/dL (2.3-3.5); Glucose 205 mg/dL (74-106); Magnesium 1.8 mg/dL (1.6-2.6); Osmolality,Calculated 295 (275-295); Potassium 4.1 mMol/L (3.4-5.1); Sodium 143 mMol/L (136-145); Total Protein 5.4 gm/dL (5.7-8.2); eGFR > 60 See Note
[2025-02-12 06:19] LABS: Basophils % (Auto) 0 % (0-2.5); Eosinophils % (Auto) 0 % (0-10); Hematocrit 32.8 % (36.0-46.0); Hemoglobin 11.5 g/dL (12.0-16.0); Immature Granulocytes % (Auto) 1 % (0-0); Immature Granulocytes Auto 0.17 Thou/mm3 (0.00-0.00); Lymphocytes # (Auto) 0.7 Thou/mm3 (1.0-4.8); Lymphocytes % (Auto) 5 % (10-50); Mean Corpuscular HGB Conc 35.1 g/dl (31.0-37.0); Mean Corpuscular Hemoglobin 28.3 pg (25.0-35.0); Mean Corpuscular Volume 81 fL (80-100); Monocytes # (Auto) 0.9 Thou/mm3 (0.0-0.8); Monocytes % (Auto) 6 % (0-12); Neutrophils # (Auto) 13.7 Thou/mm3 (1.8-7.7); Neutrophils % (Auto) 88 % (37-80); Nucleated Red Blood Cell % 0 /100 WBC (0); Platelet Count 412 Thou/mm3 (140-440); RDW Standard Deviation 46.1 fL (36.4-46.3); Red Blood Count 4.07 Miln/mm3 (4.00-5.20); White Blood Count 15.5 Thou/mm3 (3.6-11.0)
[2025-02-12] MEDS: ENOXAPARIN SOD INJ 40 MG/0.4 ML SYRINGE SC (08:14)
[2025-02-12] MEDS: levETIRAcetam INJ 100 MG/ML VIAL 5ML 1000 MG IVP (08:14)
[2025-02-12] MEDS: PANTOPRAZOLE INJ 40 MG VIAL IVP (08:14)
--- NOTE | 2025-02-12 10:26 | PC.DIETICIAN ---
Nutrition prescription (updated) If NG tube is reinserted, consider: Glucerna 1.2 at 20 ml/hr via NG tube by pump. Advance 10 ml every 8 hrs to goal rate of 50 ml/hr x 24 hrs. If no IV fluids, water flushes of 30 ml/hr (or per MD).
--- NOTE | 2025-02-12 11:33 | PC.SS ---
rounding note: Patient was extubated yesterday. She is a resident from [facility]. Nursing states patient is a Tele downgrade. Patient alert/oriented.
--- NOTE | 2025-02-12 11:48 | PC.CC ---
Addendum entered by Hector Allen RN 02/12/25 15:49: 1537 sent paperwork to ANGIE through [employer]. Called ANGIE, spoke to Blanche and she confirmed that she received the paperwork. 1524 I called [facility], spoke to Omar and informed about new bed assigned for the pt. Omar stated he will inform the crew know. 1505 TBA and DC summary faxed to [facility]. 1458 called ICU charge nurse and informed new information regarding bed assignment and number for report given. 1455 received call from [facility] at [facility] that pt will be going to same campus but different room. Now pt will be going to [address]. Report can be called at [phone]. 1415 Reach at bedside, informed pt will be going to [facility] but different room and I will update Reach once I have that information. 1410 Made 2 transfer packets. 1 for [facility] with CD inside and 1 for [facility]. Completed all signatures. Pt daughters agree to transfer the pt to [facility]. 1405 Lore from [facility] called back and stated to continue with transferring the patient and in the mean time she will be working on different bed assignment. 1359 I went to ICU to give transfer packets and found pt is on contact precautions ESBL in urine . I called [facility] and [facility] and informed them. [facility] center stated they might have to change the room assignment and they will call back Addendum entered by Hector Allen RN 02/12/25 13:43: 1336 called [facility] spoke to Omar and setup the transport. He stated ETA is 11 min. Addendum entered by Hector Allen RN 02/12/25 13:01: 1255 spoke to ICU charge nurse and gave updates. [address] Teague regarding transport. Got orders to airlift the pt. 1245 received call from Red at [facility] that pt is accepted at [facility]. Address [address] [place] [address]. Accepted by Wilfrido Vega. Pt will be going to ICU, 8th Floor, Bed#9. Report can be called at [phone]. [address] Teague need dc summary. 1238 received call from Lore that pt is accepted and accepting info will be given shortly. She wants me to work on TBA and discharge summary faxed over. Original Note: 1207 clinicals sent to [facility]. 1158 called [facility], spoke to Sharla and initiated the transfer request. She stated to fax clinicals. [address] Alberto, he provided me with his direct number and he will be doing peer to peer. [address] Myers that pt needs to be transferred to [facility] for cerebral edema with mass effect, history of maningioma with mass effect need neuro-surgery services for evaluation and medical management. Dr. Myers updated me pt is tele downgrade in ICU and has GCS of 14.
--- NOTE | 2025-02-12 12:40 | PC.NURSE ---
[facility] (conference coordinator's name) from the [facility] Transfer Center called for recent VS and Lab values. Per [facility], the [facility] Transfer Center will call back for further information on the possible transfer. Plan of care on-going.
--- NOTE | 2025-02-12 12:43 | PD.RESDS ---
Planned Discharge Date 02/12/25 DS: Providers Provider Date of admission: 02/08/25 01:36 Primary care physician: Dionisio Francisco MD Admitting Provider: Yifan Hernandez MD Attending Provider on Admission: Yifan Hernandez MD Consults: 02/07/25 15:49 Referral - Street Light Inspector Stat Service Needed for Transfer: Neurosurgery Addl Comments:: Right frontal soft tissue tumor with mass effect 02/07/25 21:34 Consult to Neurology / Tele-Neurology Stat Comment: Consulting Provider: Niraj Lopez 02/08/25 13:54 Consult to Harness Racing Handicapper Routine Comment: Consulting Provider: Lucia Roy 02/08/25 14:45 Referral Registered Dietitian Routine Comment: Instructions: NG tube feedings 02/11/25 13:44 Referral Speech Therapy Urgent Comment: extubated, failed nurse swallow 02/12/25 08:45 Referral - [facility] D[facility]at[facility] Nurse Practitioner Routine Comment: swallow eval c Connie 02/12/25 12:13 Consult to Gastroenterology Routine Comment: Attempt for NG tube, if not G-tube Consulting Provider: Angelo Cramer Attending Provider on DC: Medhat Joyce MD Discharging Provider: Medhat Joyce MD DS: Diagnosis Problem List Completed Was Problem List Reviewed/Reconciled?: Yes Hospital Course Hospital Course Hospital course: Caitlyn is a 89-year-old female w/PMHx of meningioma, CVA, CABG, hypertension, hyperlipidemia, type 2 diabetes mellitus, who was admitted to [facility] on February 08, 2025 for an evaluation of acute on chronic encephalopathy secondary to cerebral edema with mass effect and meningioma. Patient arrived to the ER with a blood pressure of 213/97, heart rate 93/min, temperature 102F, CBC showed WBC 5.2, hemoglobin 13.6, platelet 24, normal coagulation profile, mild hyponatremia sodium 133, normal renal function, lactic acid 1.7, magnesium 1.3, which was repleted, normal liver function, mild alkaline phosphatase elevation, negative Pro-Blas. Urinalysis showed UTI. The patient was given IV fluid bolus, ceftriaxone, IV magnesium, subq insulin, and acetaminophen IV. Head CT showed right frontal mass measuring 27 mm with cerebral edema. ER had tried to transfer patient back to [place] as she was recently discharged from there for similar symptoms, however neurosurgery had recommended palliative care due to poor prognosis and no surgical intervention at the time. Medicine was consulted and patient was admitted for management of cerebral edema. While on the floors, patient was given IV steroids per neurology recommendations, Dr. Lopez. Patient had repeat imaging with MRI which showed again 25 mm mass in the right frontal lobe with mass effect and edema measuring 10 mm. Patient's [place] Coma Scale continue to deteriorate and was around 6 or 7. ICU was consulted due to concern for patient protecting their airway. Patient continues to get IV steroids which had elevated patient's sugar up into the 400s and patient developed anion gap. After speaking with family who wanted full treatment at the time, patient was then intubated for airway protection and was admitted into the ICU, however no insulin was drip was started and subcu insulin managed patient's sugar levels. Patient's urine culture had resulted into ESBL UTI which was managed with Zosyn. Patient also had EEG done while in the ICU as patient has had new onset seizures prior to arrival which showed diffuse slowing and abnormal waveforms consistent with abnormal EEG and poor prognosis. Patient was eventually extubated after passing spontaneous breathing trial. After having goals of care discussion with family after patient was downgraded to telemetry, family reiterated full treatment but change patient's CODE STATUS to DNR. There was concern for possible another primary tumor in patient's brain, after speaking with neurology, and we still continued patient's steroids. After extubation, patient was given NG tube feedings, and patient had eventually taken out her NG tube and there was concern for future feedings in which we consulted our net sorter to attempt to put an NG tube after we failed multiple times on inserting it. We had spoken to different neurosurgery centers previously earlier in admission, and I had initiated transfer process again in which [facility] neurosurgery accepted the case for further management that may include medical or possible surgical intervention. Patient was then discharged with the following instructions. Discharge Instructions: Follow-up with your PCP once you are discharged Take your medicines as prescribed Return to ED if your symptoms worsen or return Problem list: #Acute on chronic encephalopathy #Cerebral edema secondary to meningioma #Hx of stroke #Acute stroke, ruled out #DKA #Acute hypoxic respiratory failure #ESBL E. Coli UTI #Sepsis, ruled out #Hypertensive urgency #Hx of HTN #T2DM #DESIREE #History of CVA #History of CABG Discharge summary was reviewed with my attending Dr. Maria Del Carmen Teague, PGY-1 Time Spent with Patient Time attestation: Total time spent providing and/or coordinating discharge services: Time spent: Greater than 30 minutes Exam Vital Signs Temp Pulse Resp BP Pulse Ox O2 Del Method O2 Flow Rate 97.3 F 74 19 98/72 96 Nasal Cannula 3 02/12/25 07:14 02/12/25 08:02 02/12/25 08:02 02/12/25 08:02 02/12/25 08:02 02/11/25 16:00 02/11/25 16:00 FiO2 40 02/11/25 08:00 Narrative Exam General: AAOx3, in mild distress, weak, frail, elderly woman HEENT: Dry mucous membranes, conjunctiva clear, EOMI, PERRLA, Cardiovascular: S1, S2, radial pulses +2 bilat, RRR, possible Ejection SM Pulmonary: CTAB bilat no cough, no wheezing GI: No tenderness to light or deep palpitation, no guarding, rigidity, rebound tenderness or distension Extremities: No presence of trace or pitting edema in lower extremities bilaterally, dorsalis pedis pulses +2 bilaterally Neuro: AAOx2, residual L motor weakness in UE and LE extremities Discharge Plan Plan Patient Disposition: Xfer Other Facility Pt Being Transferred to: [facility] Patient condition on transfer: Stable Care Plan Goals: Discharge Instructions: Follow-up with your PCP once you are discharged Take your medicines as prescribed Return to ED if your symptoms worsen or return Prescriptions/Referrals Prescriptions/Med Rec: No Action glyburide 5 MG tablet 10 mg PO BID Qty: 0 clopidogrel [Plavix] 75 MG tablet 75 mg PO QDAY Qty: 0 Trulicity 0.75 MG/0.5 ML pen injector 0.75 mg SQ QWEEK Qty: 0 amiloride-hydrochlorothiazide 5-50 mg Tablet 1 tab PO QDAY atorvastatin 20 mg Tablet 20 mg PO HS folic acid 400 mcg Tablet 400 mcg PO QDAY metoprolol tartrate 50 mg Tablet 25 mg PO BID Rx Instructions: half tab po bid. tramadol 200 mg Tablet Extended Release 24 Hr 200 - 400 mg PO QDAY PRN (Reason: Pain) Referrals: Dionisio Francisco MD [Primary Care Provider] - Patient/Caregiver Discharge Instructions Discharge Activity: activity as tolerated Education Materials: Understanding Urinary Tract ..., ED Brain Tumor, ED Diabetes- Overview Print Language: Fijian Stand Alone Forms: [facility]ainey Award Info., Patient Portal Info Letter Discharge Order Discharge Orders: Discharge (Routine); Ordered 02/12/25 Ordered By: Robbie Teague Quality Discharge Quality Measures VTE prophylaxis (Lovenox ) Attestestation MD Attestation I reviewed labs, imaging, EKG, home medications and prior available records. Face to face evaluation was performed by me. I have personally examined the patient and discussed assessment and plan with the IM team. I reviewed the resident note and agree with the plan with exceptions as below. Acute encephalopathy Meningioma Cerebral edema Acute ESBL E. coli UTI DESIREE, resolved DKA, resolved Uncontrolled diabetes mellitus with hyperglycemia, insulin-dependent type 2 Goals of care discussion Her acute encephalopathy is likely in setting of cerebral edema from meningioma versus acute UTI versus DKA Continue IV dexamethasone and frequent neurochecks Continue IV Keppra Treatment of UTI with IV Zosyn Continue long-acting insulin plus sliding scale insulin. Adjust based on future fingersticks She is now DNR/DNI. Family is aware of the poor prognosis but wants to explore different options. Discussed goals of care with the family on 02/12. Family wants full treatment beside DNR. Offered the option of transfer for medical management. She was accepted at [facility]. Consulted GI for NG tube placement given the failed placement by RN Time spent is 45 minutes. More than 50% of the time was spent on patient education and coordination of care.
[2025-02-12] MEDS: SODIUM CHLORIDE 0.9% 1000 ML 1,000 ML 40 ML IV (13:44)
--- NOTE | 2025-02-12 14:55 | PC.NURSE ---
Report given to Maikol at [facility] (PCU) @14:55. Patient left facility at 14:45 being transferred to [facility] via [facility].
--- NOTE | 2025-02-12 15:05 | PD.IMCONS ---
HPI Data of Consult Requesting Physician: Yifan Hernandez MD Primary Care Provider: Dionisio Francisco MD Consult Narrative Reason for consult: Placement of an NGT History of present illness: 89 years old female evaluated in the ICU in room 256 for placement of an NGT Patient was admitted on 02/08/2025 for altered mental status Imaging studies showed meningioma with frontal lobe edema and patient is getting transferred to [facility] for further evaluation management Patient also has a history of Hyperlipidemia diabetes mellitus type 2 essential hypertension and previous history of CVA cc:: cc: Yifan Henrandez MD Review of Systems Review of Systems Systems Reviewed: All systems reviewed, normal except as documented Past Medical History Surgical History OTHER SURGICAL HX: As in the history of present illness Meds Home Medications and Allergies Home Medications ?Medication ?Instructions ?Recorded ?Confirmed ?Type clopidogrel 75 mg tablet (Plavix) 75 mg PO QDAY #0 tabs 02/22/17 02/08/25 History glyburide 5 mg tablet 10 mg PO BID ##0 02/22/17 02/08/25 History dulaglutide 0.75 mg/0.5 mL 0.75 mg SQ QWEEK ##0 05/23/17 02/08/25 History subcutaneous pen injector (Trulicity) amiloride 5 mg-hydrochlorothiazide 1 tab PO QDAY 05/15/19 02/08/25 History 50 mg tablet atorvastatin 20 mg tablet 20 mg PO HS 05/15/19 02/08/25 History folic acid 400 mcg tablet 400 mcg PO QDAY 09/30/20 02/08/25 History metoprolol tartrate 50 mg tablet 25 mg PO BID 10/02/20 02/08/25 History tramadol 200 mg tablet,extended 200 - 400 mg PO QDAY PRN Pain 10/02/20 02/08/25 History release 24 hr Allergies Allergy/AdvReac Type Severity Reaction Status Date / Time diclofenac Allergy Severe Rash Verified 03/16/24 15:31 promethazine Allergy Severe RASH Verified 03/16/24 15:31 Exam Vital Signs Temp Pulse Resp BP Pulse Ox O2 Del Method O2 Flow Rate 97.0 F 77 19 157/86 H 96 Nasal Cannula 3 02/12/25 14:02/12/25 14:27 02/12/25 14:02/12/25 14:02/12/25 14:02/11/25 16:00 02/12/25 14:27 FiO2 40 02/11/25 08:00 Constitutional Comments: Chronically ill-appearing Routine Respiratory Exam Comments: Scattered rhonchi Routine Abdominal Exam Comments: Soft nontender Results Labs 02/12/25 04:50 02/12/25 04:50 Labs: Short CBC 02/12/25 Range/Units 04:50 WBC 15.5 H (3.6-11.0) Thou/mm3 Hgb 11.5 L (12.0-16.0) g/dL Hct 32.8 L (36.0-46.0) % Plt Count 412 D (140-440) Thou/mm3 BMP 02/12/25 04:50 Sodium 143 Potassium 4.1 Chloride 101 Carbon Dioxide 28.5 BUN 26 H Creatinine 0.7 Glucose 205 H D Calcium 8.2 L Liver Function 02/12/25 Range/Units 04:50 Total Bilirubin 0.7 (0.3-1.2) mg/dL AST 35 H (0-34) U/L ALT 19 (10-49) U/L Alkaline Phosphatase 119 H D (46-116) U/L Albumin 3.5 (3.4-4.8) gm/dL ABG Interpretation ABG results: 02/08/25 02/08/25 02/08/25 12:11 15:47 18:16 ABG pH 7.42 7.35 ABG pCO2 39 50 H D ABG pO2 299 H 500 H D ABG HCO3 25 27 H ABG O2 Saturation 101 H 101 H ABG Base Excess 1 1 VBG pH 7.46 VBG pCO2 26 L VBG pO2 125 H VBG Base Excess -4 L 02/09/25 02/10/25 02/11/25 04:41 04:50 04:24 ABG pH 7.41 7.42 7.48 H ABG pCO2 42 41 37 ABG pO2 187 H D 132 H D 136 H ABG HCO3 26 26 27 H ABG O2 Saturation 101 H 100 H 100 H ABG Base Excess 2 2 4 H VBG pH VBG pCO2 VBG pO2 VBG Base Excess Assessment and Plan Additional Assessment & Plan Additional Plan: # Placement of an NGT discussion Case discussed with the internal medicine team in the ICU Patient is in the process of getting transferred to [facility] After discussion was decided not to have another attempt at placement of NGT Once she gets transferred over there they can try to do the NGT was only done for nutrition purposes and not for any small bowel obstruction Other medical problems include Meningioma with brain edema CVA Essential hypertension Hyperlipidemia Diabetes mellitus type 2 Thank you very much for the opportunity to participate in the care of this patient
== END 2025-02-12 14:45 | disposition other institution (70) | DRG 80 ==
LOC: SERX 02-08 01:24 → SERHOLD 02-08 02:31 → S2NX 02-08 03:56 → S2SX 02-08 17:18
PROVIDERS: Registered Nurse General Practice; Student in an Organized Health Care Education/Training Program; Admitting Provider Internal Medicine; Emergency Provider Family Medicine; PCP Hospitalist; Visit Provider Internal Medicine
DX: G93.6 Cerebral edema (principal); E11.10 Type 2 diabetes mellitus with ketoacidosis without coma; J96.01 Acute respiratory failure with hypoxia; G93.49 Other encephalopathy; E87.1 Hypo-osmolality and hyponatremia; N39.0 Urinary tract infection, site not specified; Z16.12 Extended spectrum beta lactamase (ESBL) resistance; R47.01 Aphasia; N17.9 Acute kidney failure, unspecified; D32.0 Benign neoplasm of cerebral meninges; I10 Essential (primary) hypertension; E78.5 Hyperlipidemia, unspecified; I16.0 Hypertensive urgency; W19.XXXA Unspecified fall, initial encounter; Z86.73 Personal history of transient ischemic attack (TIA), and cerebral infarction without residual deficits; B96.20 Unspecified Escherichia coli [E. coli] as the cause of diseases classified elsewhere; I25.10 Atherosclerotic heart disease of native coronary artery without angina pectoris; I48.91 Unspecified atrial fibrillation; I65.21 Occlusion and stenosis of right carotid artery; J44.9 Chronic obstructive pulmonary disease, unspecified; R56.9 Unspecified convulsions; Z51.5 Encounter for palliative care; Z95.1 Presence of aortocoronary bypass graft; Z66 Do not resuscitate; Z79.899 Other long term (current) drug therapy; Z79.01 Long term (current) use of anticoagulants; Z79.4 Long term (current) use of insulin; Z79.84 Long term (current) use of oral hypoglycemic drugs
CPT/HCPCS: 36415; 36600; 70450; 70496; 70498; 70544; 71045; 80048; 80053; 80061; 80069; 80076; 81001; 82010; 82803; 83036; 83605; 83615; 83690; 83735; 83880; 84100; 84145; 84443; 84484; 85025; 85610; 85730; 87040; 87077; 87081; 87086; 87186; 87205; 87400; 87811; 92526; 92610; 93005; 94002; 94003; 95816; 96365; 96366; 96367; 96372; 96375; 99285; A4649; J0131; J0360; J0696; J1100; J1650; J1815; J1953; J2060; J2250; J2470; J2543; J2704; J3010; J3475; J3480; J3490; J7030; J7040; J7120; Q9967; A9270; J1920

== ENCOUNTER 2025-03-02 03:55 | Inpatient (IN) | payer MEDICARE, BC, MEDICAID, SELFPAY ==
[2025-03-02] VITALS (11 sets, daily range): BP systolic 137–171; BP diastolic 58–104; PULSE 68–88; RESP 13–97; TEMP 36.1–36.4; O2SAT 92–97; BMI 12.0; BMI 24.0
--- NOTE | 2025-03-02 06:37 | ESHP_ITS ---
<Statement entered by Aniyah Lopez MD - 03/02/25 07:04> I Aniyah Lopez MD reviewed the note and agree with the resident's assessment & plan with exceptions as below. I have personally reviewed labs, imaging, home meds/prior records, examined the patient, formulated and discussed management plan with the IM team. An 89-year-old F transferred back from [facility] following meningioma resection. Patient is alert oriented x 2 without any focal neurological deficits. Will resume management including Keppra and dexamethasone 1 mg twice daily. Documentation for date of: 03/02/25 HPI History of Present Illness Chief complaint: Meningioma s/p resection History of present illness: 89-year-old female with past medical history of meningioma s/p craniotomy and resection, CVA, CAD s/p CABG, DM2, hypertension, and hyperlipidemia was transferred back on 03/02/2025 from [facility] after she was transferred from our institution to [facility] on 02/12/2025 for further management of patient's meningioma. Patient was recently admitted to our hospital on 02/08/2025 due to altered mental status and was found to have cerebral edema secondary to meningioma. Per chart review patient's initial hospital stay prior to being transferred was complicated due to UTI, DESIREE, and decreased mentation requiring ICU admission to protect patient's airway. Patient at this time was found to have ESBL UTI and was placed on Zosyn. During this hospital admission patient's CODE STATUS was full code and was changed to DNR/DNI prior to being transferred to [facility]. Per review of patient's medical records from [facility] patient's CODE STATUS was changed back to full code. Patient underwent craniotomy with resection of the meningioma on 02/25/2025. Patient afterwards was placed in the ICU for closer monitoring. Patient was started on multiple antihypertensives as neurology had recommended to maintain SBP below 140. Patient was on Plavix previously, but this will be held until 03/11/2025 as per [facility] recommendations. On assesment patient had no complaints, denied any chest pain, SOB, or N/V. Endorsed generalized body pain. On assessment patient was AO x 3 and was able to follow all commands. It was noted on chart review from [facility] that patient had difficulty with tracing to the left side of her eyes, but on my assessment patient was able to trace without any difficulties. Upon arrival of patient vitals look stable with a blood pressure of 137/68, afebrile, and saturating well on room air. Please refer to patient's physical chart for further details of hospital course at [facility]. Review of Systems Review of Systems Systems Reviewed: All systems reviewed, normal except as documented Past Medical History Past Medical History NEUROLOGIC: Positive Cerebrovascular Accident; Negative Neurological Disorders CARDIAC: Positive Hypercholesterolemia and Hypertension; Negative Cardiac Disorders or Congestive Heart Failure RESPIRATORY: Negative Chronic Obstructive Pulmonary Disease (COPD) or Asthma GASTROINTESTINAL: Negative Gastrointestinal Disorders GENITOURINARY: Negative Genitourinary Disorders or Renal Disease REPRODUCTIVE: Negative Pelvic Inflammatory Disease MUSCULOSKELETAL: Negative Musculoskeletal Disorders ENDOCRINE: Positive Diabetes Mellitus Type 2; Negative Endocrine Disorders or Diabetes Mellitus Type 1 HEMATOLOGIC: Negative Sickle Cell Disease OTHER HISTORY: Negative Autoimmune Disease, Anesthesia Reactions, Organ Transplant, MRSA, Clostridium Difficile or Cancer Family History FAMILY HISTORY: Negative Family Cardiac Disorders Surgical History SURGICAL: Positive Coronary Artery Bypass Graft; Negative Endocrine Surgery, Ear Surgery, Abdominal Surgery, Nephrectomy, Joint Replacement, Neurologic Surgery, Mastectomy, Vasectomy or Organ Transplant Social History SMOKING STATUS: Unknown if ever smoked Exam Vital Signs Temp Pulse Resp BP Pulse Ox O2 Del Method 97.0 F 68 18 137/68 H 95 Room Air 03/02/25 04:00 03/02/25 04:00 03/02/25 04:00 03/02/25 04:00 03/02/25 04:00 03/02/25 04:00 Narrative Exam General: A/O x3, no acute distress Eyes: PERRL, EOMI. Anicteric, vision grossly intact. Ears: No ear pain, no ear discharge, Hearing grossly intact. Nose: No nasal discharge. Mouth/Throat: Moist mucous membranes, no redness, no lesions. Neck: Neck supple, non-tender, no cervical lymphadenopathy. Lungs: Clear SARAH to auscultation and percussion, No accessory muscle use. Cardio: Normal S1/S2, regular rhythm, no murmurs, no JVD Abdomen: Soft, non-tender, no palpable masses, peristalsis present, no guarding or rebound. Extremities: Symmetrical, no significant deformities, no peripheral edema , non-tender, peripheral pulses presents. Skin: Facial bruising covering around 60% of the patient's facial area and katelynn with clean dressing on the frontal lobe. Neuro: Some mild weakness on left side appreciated when compared to the right, this is most likely residual from previous strokes. Patient was AO x 3 and able to follow commands. Patient was answering all questions appropriately. Patient was able to trace with eyes bilaterally. There was no facial symmetry. Patient was able to move all extremities. Patient's response to questions and to commands was slow, but he was able to successfully answer and follow commands. Quality Measures Quality Measures VTE prophylaxis Advance care planning discussed with:: patient Medications Home Medications and Allergies Home Medications ?Medication ?Instructions ?Recorded ?Confirmed ?Type clopidogrel 75 mg tablet (Plavix) 75 mg PO QDAY #0 tab s 02/22/17 02/08/25 History glyburide 5 mg tablet 10 mg PO BID ##0 02/22/17 History dulaglutide 0.75 mg/0.5 mL 0.75 mg SQ QWEEK ##0 02/08/25 History subcutaneous pen injector (Trulicity) amiloride 5 mg-hydrochlorothiazide 1 tab PO QDAY 05/1502/08/25 History 50 mg tablet atorvastatin 20 mg tablet 20 mg PO HS 05/15/19 5 History folic acid 400 mcg tablet 400 mcg PO QDAY 09/30/20 History metoprolol tartrate 50 mg tablet 25 mg PO BID 10/02/20 02/08/25 History tramadol 200 mg tablet,extended 200 - 400 mg PO QDAY P RN Pain 10/02/20 02/08/25 History release 24 hr Allergies Allergy/AdvReac Type Severity Reaction Status Date / Time diclofenac Allergy Severe Rash Verified 03/16/24 15:31 promethazine Allergy Severe RASH Verified 03/16/24 15:31 Visit Medications Acetaminophen (Acetaminophen 325 Mg Tablet) 650 mg PO Q6H PRN PRN Reason: pain 1-3 and Fever >100.4 Stop: 04/01/25 05:05 Amlodipine Besylate (Amlodipine Besylate 5 Mg Tablet) 5 mg PO QDAY ORALIA Stop: 04/01/25 08:59 Ascorbic Acid (Ascorbic Acid 250 Mg Tablet) 500 mg PO QDAY ORALIA Stop: 04/01/25 08:59 Atorvastatin Calcium (Atorvastatin Calcium 20 Mg Tablet) 40 mg PO HS [facility]IA Stop: 04/01/25 20:59 Baclofen (Baclofen 10 Mg Tablet) 5 mg PO TID PRN PRN Reason: MUSCLE SPASMS Stop: 04/01/25 05:11 Captopril (Captopril 12.5 Mg Tablet) 12.5 mg PO TID [facility] Stop: 04/01/25 05:59 Dextrose (Dextrose 50%-Water Inj 50 Ml Syringe) 25 ml IV Q15MIN PRN PRN Reason: BG 50-70 responsive npo pt Stop: 04/01/25 05:15 Dextrose (Dextrose 50%-Water Inj 50 Ml Syringe) 50 ml IV Q15MIN PRN PRN Reason: BG <50 OR BG <70 & pt unresponsive Stop: 04/01/25 05:15 Glucagon (Glucagon Inj 1 Mg Vial) 1 mg IM Q15MIN PRN PRN Reason: BG <70, and no IV access Heparin Sodium (Porcine) (Heparin Sod Inj 5000 Unit/Ml Vial) 5,000 unit SC Q12HR [facility] Stop: 03/16/25 08:59 Hydromorphone HCl (Hydromorphone Inj 2 Mg/Ml Vial) 0.25 mg IVP Q2H PRN PRN Reason: PAIN SCALE 4-10(Mod-Sev Stop: 03/07/25 05:05 Insulin Glargine (Insulin Glargine (Lantus) 5 Unit/0.05 Ml (Per 5 Units)) 12 unit SC HS [facility] Stop: 04/01/25 20:59 Insulin Human Lispro (Insulin Lispro (Admelog) 1 Unit/0.01 Ml Unit) 0 unit SC AC [facility]; Protocol Stop: 04/01/25 07:29 Levetiracetam (Levetiracetam Liqd 500 Mg/5 Ml Udc) 500 mg PO BID [facility] Stop: 04/01/25 08:59 Melatonin (Melatonin 3 Mg Tablet) 3 mg PO HS [facility] Stop: 04/01/25 20:59 Metoprolol Tartrate (Metoprolol Tartrate 25 Mg Tablet) 25 mg PO BID [facility] Stop: 04/01/25 08:59 Multivitamins (Multivitamins Tablet) 1 tab PO QDAY [facility] Stop: 04/01/25 08:59 Ondansetron HCl (Ondansetron Inj 2 Mg/Ml Inj 2 Ml) 4 mg IVP Q6H PRN; Protocol PRN Reason: NAUSEA OR VOMITING Stop: 04/01/25 05:05 Pantoprazole Sodium (Pantoprazole 40 Mg Tablet) 40 mg PO QDAY [facility] Stop: 04/01/25 08:59 Sennosides (Senna Tablet) 1 tab PO QDAY [facility]; Protocol Stop: 04/01/25 08:59 Assessment & Plan Plan 89-year-old female with past medical history of meningioma s/p craniotomy and resection, CVA, CAD s/p CABG, DM2, hypertension, and hyperlipidemia was transferred back on 03/02/2025 from [facility] after she was transferred from our institution to [facility] on 02/12/2025 for further management of patient's meningioma. #Meningioma s/p craniotomy and resection Patient was transferred back on 03/02/2025 after getting craniotomy and resection of meningioma at [facility] on 02/25/2025. AO x 3 and able to follow commands. Plan: Maintain SBP below 140 Patient is currently on amlodipine 5 mg daily, captopril 12.5 mg 3 times daily, and metoprolol tartrate 25 mg p.o. twice daily for tight blood pressure control Keppra 500 twice daily Dexamethasone 1mg BID, taper over the next 5 days. Atorvastatin 40 mg at bedtime Acetaminophen 650 every 6 hours as needed for pain and hydromorphone 0.25 mg IV every 2 hours as needed for pain Baclofen 5 mg 3 times daily as needed for muscle spasms Multivitamin and vitamin C ordered for wound healing Patient needs to follow-up with outpatient neuro-oncology upon discharge Patient to resume Plavix on 03/11/2025 per [facility] recommendations Patient referred to speech therapy, registered dietitian, Occupational Therapy, and physical therapy Dysphagia 1 diet pur?ed, advanced as stated per speech therapy Patient will require assistance with feeding and patient was to be sitting upright and taking small bites at a time and to be fed slowly. Aspiration precautions Neurochecks every 4 hours Wound care ordered Chronic diseases: #CAD s/p CABG #Hx of DM2 #Hx of hypertension #Hx of hyperlipidemia Will continue to hold Plavix until 03/11/2025 as per [facility] recommendations Lantus 12 units at bedtime and ISS Hypoglycemia protocol ordered Tight BP control with captopril 12.5 mg 3 times daily, amlodipine 5 mg daily, metoprolol titrate 25 mg twice daily Atorvastatin 40 mg at bedtime Disposition: Patient admitted to telemetry. Diet: Pureed GI prophylaxis: protonix DVT prophylaxis: heparin sub Code: Full Case disclosed with Attending Dr. John Alberto PGY1 Disclaimer: Even though this this note was dictated by speech recognition and even though it was carefully revised there may still be minor errors in patient coordinator front desk due to voice recognition software.
[2025-03-02 06:44] LABS: Basophils % (Auto) 0 % (0-2.5); Eosinophils # (Auto) 0.2 Thou/mm3 (0.0-0.5); Eosinophils % (Auto) 2 % (0-10); Hematocrit 30.9 % (36.0-46.0); Immature Granulocytes % (Auto) 1 % (0-0); Immature Granulocytes Auto 0.04 Thou/mm3 (0.00-0.00); Lymphocytes # (Auto) 0.7 Thou/mm3 (1.0-4.8); Lymphocytes % (Auto) 11 % (10-50); Mean Corpuscular HGB Conc 32.4 g/dl (31.0-37.0); Mean Corpuscular Hemoglobin 28.2 pg (25.0-35.0); Mean Corpuscular Volume 87 fL (80-100); Monocytes # (Auto) 0.4 Thou/mm3 (0.0-0.8); Monocytes % (Auto) 7 % (0-12); Neutrophils # (Auto) 4.9 Thou/mm3 (1.8-7.7); Neutrophils % (Auto) 80 % (37-80); Nucleated Red Blood Cell % 0 /100 WBC (0); Platelet Count 157 Thou/mm3 (140-440); RDW Standard Deviation 65.1 fL (36.4-46.3); Red Blood Count 3.54 Miln/mm3 (4.00-5.20); White Blood Count 6.1 Thou/mm3 (3.6-11.0)
[2025-03-02 07:11] LABS: Alanine Aminotransferase 10 U/L (10-49); Albumin, Serum 3.1 gm/dL (3.4-4.8); Albumin/Globulin Ratio 1.9 (1.2-2.2); Alkaline Phosphatase 155 U/L (46-116); Anion Gap 5 (7-16); Aspartate Amino Transferase 20 U/L (0-34); BUN/Creatinine Ratio 30 Ratio (12-20); Bilirubin,Total 0.6 mg/dL (0.3-1.2); Blood Urea Nitrogen 15 mg/dL (9-23); Calcium 8.3 mg/dL (8.3-10.6); Carbon Dioxide 31.9 mMol/L (20.0-31.0); Chloride 102 mMol/L (98-107); Creatinine (Component) 0.5 mg/dL (0.6-1.3); Globulin 1.6 gm/dL (2.3-3.5); Glucose 270 mg/dL (74-106); Magnesium 1.6 mg/dL (1.6-2.6); Osmolality,Calculated 288 (275-295); Potassium 3.8 mMol/L (3.4-5.1); Sodium 139 mMol/L (136-145); Total Protein 4.7 gm/dL (5.7-8.2); eGFR > 60 See Note
[2025-03-02] MEDS: INSULIN LISPRO (AdmeLOG) 1 UNIT/0.01 ML UNIT SC ×4 (07:55→21:41)
[2025-03-02] MEDS: METOPROLOL TARTRATE 25 MG TABLET PO ×2 (08:23→20:51)
[2025-03-02] MEDS: dexAMETHasone 1 MG TABLET PO ×2 (08:23→20:51)
[2025-03-02] MEDS: MULTIVITAMINS TABLET 1 TAB PO (08:23)
[2025-03-02] MEDS: SENNA TABLET 1 TAB PO (08:23)
[2025-03-02] MEDS: amLODIPine BESYLATE 5 MG TABLET PO ×2 (08:23→14:56)
[2025-03-02] MEDS: ASCORBIC ACID 250 MG TABLET 500 MG PO (08:24)
[2025-03-02] MEDS: levETIRAcetam LIQD 500 MG/5 ML UDC PO ×2 (08:24→20:50)
[2025-03-02] MEDS: HEPARIN SOD INJ 5000 UNIT/ML VIAL SC ×2 (08:24→20:53)
[2025-03-02] MEDS: PANTOPRAZOLE 40 MG TABLET PO (08:24)
[2025-03-02] MEDS: INSULIN GLARGINE (Lantus) 5 UNIT/0.05 ML (PER 5 UNITS) 6 UNIT SC (08:35)
[2025-03-02] MEDS: HYDROmorphone INJ 2 MG/ML VIAL 0.25 MG IVP (11:30)
[2025-03-02] MEDS: ACETAMINOPHEN IVPB 1,000 MG/100 ML VIAL 250 MG IV ×2 (14:57→21:00)
--- NOTE | 2025-03-02 15:50 | PC.SS ---
Patient is a transfer back from [facility]. S/p craniotomy. Patient was recently at [facility] [[email or web address] and [place]. SS spoke to daughter, Jennifer, and she states she prefers patient to d/c to [place]. SS spoke to Pricilla @ [place] who states patient has no more Medicare days remaining. Anywhere she goes she will need to pay out of pocket until she receives Medi-ling. [place] left [facility] [place] for Jennifer dan to verify if they applied for Medi-ling coverage. Jennifer states she is the main point of contact/decision maker for patient. SS will follow up with family on further d/c planning as patient is close to discharge. alt medical decision maker: Jennifer, daughter,
--- NOTE | 2025-03-02 16:04 | ESPR_ITS ---
<Statement entered by Andrew James MD - 03/03/25 07:44> I discussed with and supervised the internet retailer physician involved in the care of this patient. Patient assessment and plan was discussed with entire medicine team, including my attending. I agree with the assessment and plan as documented by internet retailer doctor. Patient care was discussed with my attending physician Dr. Derrell James, PGY-2 Documentation for date of: 03/02/25 Subjective Subjective Interval history: Patient is seen and examined at bedside Patient is alert awake and responding to the questions appropriately No acute overnight events. Complaining of mild headache Vitals are stable. Swallow eval was done and patient passed the swallow evaluation. Feeding tube is discontinued and patient is started on diet Will titrate the SBP to less than 140 mmHg Exam Vital Signs Temp Pulse Resp BP Pulse Ox O2 Del Method 97.6 F 70 14 152/104 H 92 L Room Air 03/02/25 12:00 03/02/25 14:56 03/02/25 12:00 03/02/25 14:56 03/02/25 12:00 03/02/25 12:00 Narrative Exam General: Awake. noted echymosis on the face HEENT: Normocephalic, atraumatic, mucous membranes moist. Heart: Regular rate and rhythm, no murmurs. Lungs: Clear to auscultation with no wheezing or crackles. Abdomen: Soft, nondistended, nontender, positive bowel sounds. ?No guarding or rebound tenderness. Neurologic: Alert and oriented x3, no gross neurological deficit, and patient able to move all 4 extremities. Extremities: No edema. Skin: No rash or ecchymoses. Objective Labs 03/03/25 04:53 03/03/25 04:53 Labs: Laboratory Results - last 24 hr 03/02/25 06:20 WBC 6.1 RBC 3.54 L Hgb 10.0 L Hct 30.9 L MCV 87 MCH 28.2 MCHC 32.4 RDW Std Deviation 65.1 H Plt Count 157 D Neut % (Auto) 80 Lymph % (Auto) 11 [place] % (Auto) 7 Eos % (Auto) 2 Baso % (Auto) 0 Neut # (Auto) 4.9 Lymph # (Auto) 0.7 L [place] # (Auto) 0.4 Eos # (Auto) 0.2 Baso # (Auto) 0.0 Immature Gran # (Auto) 0.04 H Absolute Nucleated RBC 0.00 Immature Gran % 1 H Nucleated RBC % 0 Sodium 139 Potassium 3.8 Chloride 102 Carbon Dioxide 31.9 H Anion Gap 5 L BUN 15 Creatinine 0.5 L Estim Creat Clear Calc Not Performed. eGFR > 60 BUN/Creatinine Ratio 30 H Glucose 270 H Calculated Osmolality 288 Calcium 8.3 Corrected Calcium 9.0 Magnesium 1.6 Total Bilirubin 0.6 AST 20 ALT 10 Alkaline Phosphatase 155 H Total Protein 4.7 L Albumin 3.1 L Globulin 1.6 L Albumin/Globulin Ratio 1.9 Quality Measures Quality Measures VTE prophylaxis Advance care planning discussed with:: patient Assessment & Plan Assessment Current Active Medications: Generic Name Dose Route Start Last Admin Trade Name Freq PRN Reason Stop Dose Admin Acetaminophen 650 mg 03/02/25 05:06 Acetaminophen 325 Mg Tablet PO 04/01/25 05:05 Q6H PRN pain 1-3 and Fever >100.4 Amlodipine Besylate 10 mg 03/03/25 09:00 Amlodipine Besylate 5 Mg Tablet PO 04/02/25 08:59 QDAY ORALIA Ascorbic Acid 500 mg 03/02/25 09:00 03/02/25 08:24 Ascorbic Acid 250 Mg Tablet PO 04/01/25 08:59 500 mg QDAY ORALIA Administration Atorvastatin Calcium 40 mg 03/02/25 21:00 Atorvastatin Calcium 20 Mg Tablet PO 04/01/25 20:59 HS ORALIA Baclofen 5 mg 03/02/25 05:12 Baclofen 10 Mg Tablet PO 04/01/25 05:11 TID PRN MUSCLE SPASMS Captopril 12.5 mg 03/02/25 06:00 03/02/25 14:56 Captopril 12.5 Mg Tablet PO 04/01/25 05:59 12.5 mg TID ORALIA Administration Dexamethasone 1 mg 03/02/25 09:00 03/02/25 08:23 Dexamethasone 1 Mg Tablet PO 04/01/25 08:59 1 mg BID ORALIA Administration Protocol Dextrose 25 ml 03/02/25 05:16 Dextrose 50%-Water Inj 50 Ml Syringe IV 04/01/25 05:15 Q15MIN PRN BG 50-70 responsive npo pt Dextrose 50 ml 03/02/25 05:16 Dextrose 50%-Water Inj 50 Ml Syringe IV 04/01/25 05:15 Q15MIN PRN BG <50 OR BG <70 & pt unresponsive Glucagon 1 mg 03/02/25 05:16 Glucagon Inj 1 Mg Vial IM Q15MIN PRN BG <70, and no IV access Heparin Sodium (Porcine) 5,000 unit 03/02/25 09:00 03/02/25 08:24 Heparin Sod Inj 5000 Unit/Ml Vial SC 03/16/25 08:59 5,000 unit Q12HR OR[facility]IA Administration Hydromorphone HCl 0.25 mg 03/02/25 05:06 03/02/25 11:30 Hydromorphone Inj 2 Mg/Ml Vial IVP 03/07/25 05:05 0.25 mg Q2H PRN Administration PAIN SCALE 4-10(Mod-Sev Acetaminophen 1,000 mg in 100 mls @ 250 mls/hr 03/02/25 14:00 03/02/25 14:57 Ofirmev Inj IV 03/03/25 14:23 250 mls/hr Q8HR OR[facility]IA Administration Insulin Glargine 12 unit 03/02/25 21:00 Insulin Glargine (Lantus) 5 Unit/0.05 Ml (Per 5 Units) SC 04/01/25 20:59 HS [facility] Insulin Human Lispro 0 unit 03/02/25 07:30 03/02/25 11:32 Insulin Lispro (Admelog) 1 Unit/0.01 Ml Unit SC 04/01/25 07:29 4 unit AC ORALIA Administration Protocol Levetiracetam 500 mg 03/02/25 09:00 03/02/25 08:24 Levetiracetam Liqd 500 Mg/5 Ml Udc PO 04/01/25 08:59 500 mg BID ORALIA Administration Melatonin 3 mg 03/02/25 21:00 Melatonin 3 Mg Tablet PO 04/01/25 20:59 HS ORALIA Metoprolol Tartrate 25 mg 03/02/25 09:00 03/02/25 08:23 Metoprolol Tartrate 25 Mg Tablet PO 04/01/25 08:59 25 mg BID ORALIA Administration Multivitamins 1 tab 03/02/25 09:00 03/02/25 08:23 Multivitamins Tablet PO 04/01/25 08:59 1 tab QDAY OR[facility]IA Administration Ondansetron HCl 4 mg 03/02/25 05:06 Ondansetron Inj 2 Mg/Ml Inj 2 Ml IVP 04/01/25 05:05 Q6H PRN NAUSEA OR VOMITING Protocol Pantoprazole Sodium 40 mg 03/02/25 09:00 03/02/25 08:24 Pantoprazole 40 Mg Tablet PO 04/01/25 08:59 40 mg QDAY ORALIA Administration Sennosides 1 tab 03/02/25 09:00 03/02/25 08:23 Senna Tablet PO 04/01/25 08:59 1 tab QDAY ORALIA Administration Protocol Plan 89-year-old female with past medical history of meningioma s/p craniotomy and resection, CVA, CAD s/p CABG, DM2, hypertension, and hyperlipidemia was transferred back on 03/02/2025 from [facility] after she was transferred from our institution to [facility] on 02/12/2025 for further management of patient's meningioma. #Meningioma s/p craniotomy and resection Patient was transferred back on 03/02/2025 after getting craniotomy and resection of meningioma at [facility] on 02/25/2025. AO x 3 and able to follow commands. Plan: Maintain SBP below 140 Patient is currently on amlodipine 10 mg daily, captopril 12.5 mg 3 times daily, and metoprolol tartrate 25 mg p.o. twice daily for tight blood pressure control Labetaolol 10mg as needed if SBP >140 Keppra 500 twice daily Dexamethasone 1mg BID, taper over the next 5 days. Atorvastatin 40 mg at bedtime Acetaminophen 1gm IV thrice daily for headache Baclofen 5 mg 3 times daily as needed for muscle spasms Multivitamin and vitamin C ordered for wound healing Neurologist, Dr. Lopez consulted and will appreciate her recommendations Patient to resume Plavix on 03/11/2025 per [facility] recommendations Dysphagia 1 diet pur?ed, advanced as stated per speech therapy Patient will require assistance with feeding and patient was to be sitting upright and taking small bites at a time and to be fed slowly. Aspiration precautions Neurochecks every 4 hours Wound care ordered Chronic diseases: #CAD s/p CABG #Hx of DM2 #Hx of hypertension #Hx of hyperlipidemia Will continue to hold Plavix until 03/11/2025 as per [facility] recommendations Lantus 12 units at bedtime and ISS Hypoglycemia protocol ordered Tight BP control with captopril 12.5 mg 3 times daily, amlodipine 5 mg daily, metoprolol titrate 25 mg twice daily Atorvastatin 40 mg at bedtime Disposition: Patient admitted to telemetry. Diet: Pureed GI prophylaxis: protonix DVT prophylaxis: heparin sub Code: Full Patient plan of care was discussed with the attending physician, Dr. Dove and senior resident Dr. Erika Da Silva, PGY1 Attending Provider Attestation/Addendum I have discussed and was present for the essential components of the history, physical examination, diagnosis, and treatment plan with the resident. I agree with the patient's care as documented by the resident and amended herein by me. Mega Dove, DO. Although this document has been carefully reviewed, there may still be some phonetic and other typographical errors. These errors are purely grammatical due to imperfections in the software program and should not be construed in any way to compromise the substance of the patient's medical care during this visit.
[2025-03-02 16:42] LABS: Collection Type, Urine Clean Catch; RBC,Urine 0 /hpf (0-3)
[2025-03-02 16:48] LABS: Bacteria,Urine Rare; Bilirubin,Urine Negative (Negative); Blood,Urine Negative (Negative); Clarity,Urine Clear (Clear/Hazy); Color,Urine Lt-Yellow (Lt Yel-Yel); Glucose, Urine 4+ (Negative); Ketones,Urine Negative (Negative); Leukocyte Esterase,Urine Negative (Negative); Nitrite,Urine Negative (Negative); PH,Urine 5.5 (5.0-7.0); Protein,Urine Negative (Neg - Trace); Specific Gravity,Urine 1.016 (1.001-1.035); Squamous Epithelial Cell,Urine 5 /hpf (0-5); Urobilinogen,Urine Negative mg/dL (0.0-1.0); WBC,Urine 1 /hpf (0-5)
[2025-03-02] MEDS: ATORVASTATIN CALCIUM 20 MG TABLET 40 MG PO (20:50)
[2025-03-02] MEDS: MELATONIN 3 MG TABLET PO (20:51)
[2025-03-02] MEDS: INSULIN GLARGINE (Lantus) 5 UNIT/0.05 ML (PER 5 UNITS) 12 UNIT SC (20:52)
--- NOTE | 2025-03-02 21:10 | ESPR_ITS ---
Documentation for date of: 03/02/25 Subjective Subjective Interval history: Patient was seen in telemetry today at the bedside, no sz/myoclonic jerks reported. Exam - Neurology Vital Signs Temp Pulse Resp BP Pulse Ox O2 Del Method 97.3 F 73 16 146/74 H 97 Room Air 03/02/25 16:00 03/02/25 20:59 03/02/25 19:52 03/02/25 20:59 03/02/25 16:00 03/02/25 16:00 Narrative Exam General: wb, wn, female in NAD HEENT: Normocephalic, mucous membranes moist. incision noted Heart: Regular rate and rhythm, no murmurs. Lungs: Clear to auscultation with no wheezing or crackles. Abdomen: Soft, nondistended, nontender, positive bowel sounds. ?No guarding or rebound tenderness. Neurologic: Alert and oriented x1, no gross focal neurological deficit, moving all 4 extremities. Extremities: No edema. Skin: Noted ecchymoses in the face. Objective Labs 03/03/25 04:53 03/03/25 04:53 Labs: Laboratory Results - last 24 hr 03/02/25 03/02/25 06:20 15:52 WBC 6.1 RBC 3.54 L Hgb 10.0 L Hct 30.9 L MCV 87 MCH 28.2 MCHC 32.4 RDW Std Deviation 65.1 H Plt Count 157 D Neut % (Auto) 80 Lymph % (Auto) 11 [place] % (Auto) 7 Eos % (Auto) 2 Baso % (Auto) 0 Neut # (Auto) 4.9 Lymph # (Auto) 0.7 L [place] # (Auto) 0.4 Eos # (Auto) 0.2 Baso # (Auto) 0.0 Immature Gran # (Auto) 0.04 H Absolute Nucleated RBC 0.00 Immature Gran % 1 H Nucleated RBC % 0 Sodium 139 Potassium 3.8 Chloride 102 Carbon Dioxide 31.9 H Anion Gap 5 L BUN 15 Creatinine 0.5 L Estim Creat Clear Calc Not Performed. eGFR > 60 BUN/Creatinine Ratio 30 H Glucose 270 H Calculated Osmolality 288 Calcium 8.3 Corrected Calcium 9.0 Magnesium 1.6 Total Bilirubin 0.6 AST 20 ALT 10 Alkaline Phosphatase 155 H Total Protein 4.7 L Albumin 3.1 L Globulin 1.6 L Albumin/Globulin Ratio 1.9 Ur Collection Type Clean Catch Urine Color Lt-Yellow Urine Clarity Clear Urine pH 5.5 Ur Specific [place] 1.016 Urine Protein Negative Urine Glucose (UA) 4+ A Urine Ketones Negative Urine Blood Negative Urine Nitrite Negative Urine Bilirubin Negative Urine Urobilinogen (Auto) Negative Ur Leukocyte Esterase Negative Urine RBC 0 Urine WBC 1 Ur Squamous Epith Cells 5 Urine Bacteria Rare Assessment & Plan Assessment and plan (1) Meningioma: Status: Chronic Assessment and plan: s/p minimal resection sz secondary to cerebral edema and tumor progression Stable now, continue Keppra and Decadran as recommended by [facility] NSG. PT/OT/ST evaluation (2) Diabetes 1.5, managed as type 2: Status: Chronic Assessment and plan: FSG checks and follow sliding scale insulin per protocol. (3) Hypertension: Status: Chronic Assessment and plan: needs aggressive control, noted that she is on Ameloride, metoprolol and captopril
[2025-03-03] VITALS (18 sets, daily range): BP systolic 122–173; BP diastolic 60–84; PULSE 61–100; RESP 16–99; TEMP 36.1–36.6; O2SAT 91–97; BMI 24.7; BMI 12.0
[2025-03-03] MEDS: LABETALOL INJ 5 MG/ML VIAL 20 ML 10 MG IVP ×2 (00:36→21:33)
[2025-03-03] MEDS: HYDROmorphone INJ 2 MG/ML VIAL 0.25 MG IVP ×2 (04:57→19:22)
[2025-03-03 05:26] LABS: Basophils % (Auto) 0 % (0-2.5); Eosinophils # (Auto) 0.2 Thou/mm3 (0.0-0.5); Eosinophils % (Auto) 3 % (0-10); Hematocrit 26.7 % (36.0-46.0); Hemoglobin 9.2 g/dL (12.0-16.0); Immature Granulocytes % (Auto) 1 % (0-0); Immature Granulocytes Auto 0.04 Thou/mm3 (0.00-0.00); Lymphocytes # (Auto) 0.7 Thou/mm3 (1.0-4.8); Lymphocytes % (Auto) 13 % (10-50); Mean Corpuscular HGB Conc 34.5 g/dl (31.0-37.0); Mean Corpuscular Hemoglobin 29.2 pg (25.0-35.0); Mean Corpuscular Volume 85 fL (80-100); Monocytes # (Auto) 0.3 Thou/mm3 (0.0-0.8); Monocytes % (Auto) 6 % (0-12); Neutrophils # (Auto) 4.3 Thou/mm3 (1.8-7.7); Neutrophils % (Auto) 77 % (37-80); Nucleated Red Blood Cell % 0 /100 WBC (0); Platelet Count 155 Thou/mm3 (140-440); RDW Standard Deviation 61.9 fL (36.4-46.3); Red Blood Count 3.15 Miln/mm3 (4.00-5.20); White Blood Count 5.5 Thou/mm3 (3.6-11.0)
[2025-03-03] MEDS: ACETAMINOPHEN IVPB 1,000 MG/100 ML VIAL 250 MG IV ×2 (05:42→13:55)
[2025-03-03 05:46] LABS: Alanine Aminotransferase 11 U/L (10-49); Albumin, Serum 2.9 gm/dL (3.4-4.8); Albumin/Globulin Ratio 1.8 (1.2-2.2); Alkaline Phosphatase 138 U/L (46-116); Anion Gap 6 (7-16); Aspartate Amino Transferase 19 U/L (0-34); BUN/Creatinine Ratio 28 Ratio (12-20); Bilirubin,Total 0.5 mg/dL (0.3-1.2); Blood Urea Nitrogen 14 mg/dL (9-23); Calcium 8.5 mg/dL (8.3-10.6); Calcium (Corrected) 9.4 mg/dL (8.5-10.1); Carbon Dioxide 33.7 mMol/L (20.0-31.0); Chloride 101 mMol/L (98-107); Creatinine (Component) 0.5 mg/dL (0.6-1.3); Estimated Creatinine Clearance 63.9 mL/min (>60); Globulin 1.6 gm/dL (2.3-3.5); Glucose 229 mg/dL (74-106); Magnesium 1.4 mg/dL (1.6-2.6); Osmolality,Calculated 288 (275-295); Potassium 3.5 mMol/L (3.4-5.1); Sodium 141 mMol/L (136-145); Total Protein 4.5 gm/dL (5.7-8.2); eGFR > 60 See Note
[2025-03-03] MEDS: dexAMETHasone 1 MG TABLET PO (08:18)
[2025-03-03] MEDS: HEPARIN SOD INJ 5000 UNIT/ML VIAL SC ×2 (08:18→20:19)
[2025-03-03] MEDS: METOPROLOL TARTRATE 25 MG TABLET PO ×2 (08:18→20:19)
[2025-03-03] MEDS: INSULIN LISPRO (AdmeLOG) 1 UNIT/0.01 ML UNIT SC ×4 (08:18→20:18)
[2025-03-03] MEDS: MULTIVITAMINS TABLET 1 TAB PO (08:18)
[2025-03-03] MEDS: SENNA TABLET 1 TAB PO (08:19)
[2025-03-03] MEDS: amLODIPine BESYLATE 5 MG TABLET 10 MG PO (08:19)
[2025-03-03] MEDS: PANTOPRAZOLE 40 MG TABLET PO (08:19)
[2025-03-03] MEDS: ASCORBIC ACID 250 MG TABLET 500 MG PO (08:19)
[2025-03-03] MEDS: levETIRAcetam LIQD 500 MG/5 ML UDC PO ×2 (08:20→20:22)
--- NOTE | 2025-03-03 09:05 | PC.SS ---
Addendum entered by Marion Worely 03/03/25 14:29: SS updated daughter, Jennifer, that patient was accepted to [facility] in [facility]. Daughter upset and wanting to try [facility] acute rehab. SS spoke to Jennifer @ [facility] acute rehab and they declined. They felt like patient will not be able to tolerate their program. SS will update daughter. Original Note: Follow up note: SS spoke to financial counselor and patient now has Medi-ling with a share of cost of $4,220. Only facility accepting is [facility]. [facility] considering. SS left [facility] [place] [place] for daughter. Patient is ready for d/c. SS spoke to daughter yesterday and daughter does not want to bring patient home. She prefers patient to d/c to SNF.
[2025-03-03] MEDS: Magnesium Sulfate 4 GM Ivpb 4 GM/50 ML BAG IV (12:13)
--- NOTE | 2025-03-03 12:44 | ESPR_ITS ---
<Statement entered by Andrew James MD - 03/03/25 16:11> I discussed with and supervised the undergraduate internship physician involved in the care of this patient. Patient assessment and plan was discussed with entire medicine team, including my attending. I agree with the assessment and plan as documented by undergraduate internship doctor. Patient care was discussed with my attending physician Dr. Derrell James, PGY-2 Documentation for date of: 03/03/25 Subjective Subjective Interval history: Patient is seen and examined at bedside No acute overnight events. Patient denies any other complaints Patient is getting physical therapy at the bedside and is able to sit for 5 minutes without any support and able to move her lower extremities but did not walk Vitals are stable except for mildly elevated blood pressure Labs showed glucose 229, magnesium 1.4 Repleted with 4 g of magnesium and 40 mill equivalents of oral potassium. Increased dose of amlodipine from 5 Mg to 10 Mg daily Pending SNF placement. Goals of care discussed with the daughter on phone call Exam Vital Signs Temp Pulse Resp BP Pulse Ox O2 Del Method 96.9 F 84 16 156/81 H 95 Room Air 03/03/25 08:00 03/03/25 08:19 03/03/25 08:09 03/03/25 08:19 03/03/25 08:00 03/03/25 04:00 Narrative Exam General: Awake. noted echymosis on the face HEENT: Normocephalic, atraumatic, mucous membranes moist. Heart: Regular rate and rhythm, no murmurs. Lungs: Clear to auscultation with no wheezing or crackles. Abdomen: Soft, nondistended, nontender, positive bowel sounds. ?No guarding or rebound tenderness. Neurologic: Alert and oriented x3, no gross neurological deficit, and patient able to move all 4 extremities. noted katelynn on the head and site appears clean and uninfected Extremities: No edema. Skin: No rash or ecchymoses. Objective Labs 03/03/25 04:53 03/03/25 04:53 Labs: Laboratory Results - last 24 hr 03/02/25 03/03/25 15:52 04:53 WBC 5.5 RBC 3.15 L Hgb 9.2 L Hct 26.7 L MCV 85 MCH 29.2 MCHC 34.5 RDW Std Deviation 61.9 H Plt Count 155 Neut % (Auto) 77 Lymph % (Auto) 13 [place] % (Auto) 6 Eos % (Auto) 3 Baso % (Auto) 0 Neut # (Auto) 4.3 Lymph # (Auto) 0.7 L [place] # (Auto) 0.3 Eos # (Auto) 0.2 Baso # (Auto) 0.0 Immature Gran # (Auto) 0.04 H Absolute Nucleated RBC 0.00 Immature Gran % 1 H Nucleated RBC % 0 Sodium 141 Potassium 3.5 Chloride 101 Carbon Dioxide 33.7 H Anion Gap 6 L BUN 14 Creatinine 0.5 L Estim Creat Clear Calc 63.9 eGFR > 60 BUN/Creatinine Ratio 28 H Glucose 229 H Calculated Osmolality 288 Calcium 8.5 Corrected Calcium 9.4 Magnesium 1.4 L Total Bilirubin 0.5 AST 19 ALT 11 Alkaline Phosphatase 138 H Total Protein 4.5 L Albumin 2.9 L Globulin 1.6 L Albumin/Globulin Ratio 1.8 Ur Collection Type Clean Catch Urine Color Lt-Yellow Urine Clarity Clear Urine pH 5.5 Ur Specific [place] 1.016 Urine Protein Negative Urine Glucose (UA) 4+ A Urine Ketones Negative Urine Blood Negative Urine Nitrite Negative Urine Bilirubin Negative Urine Urobilinogen (Auto) Negative Ur Leukocyte Esterase Negative Urine RBC 0 Urine WBC 1 Ur Squamous Epith Cells 5 Urine Bacteria Rare Quality Measures Quality Measures VTE prophylaxis Advance care planning discussed with:: patient and child Assessment & Plan Assessment Current Active Medications: Generic Name Dose Route Start Last Admin Trade Name Freq PRN Reason Stop Dose Admin Amlodipine Besylate 10 mg 03/03/25 09:00 03/03/25 08:19 Amlodipine Besylate 5 Mg Tablet PO 04/02/25 08:59 10 mg QDAY ORALIA Administration Ascorbic Acid 500 mg 03/02/25 09:00 03/03/25 08:19 Ascorbic Acid 250 Mg Tablet PO 04/01/25 08:59 500 mg QDAY ORALIA Administration Atorvastatin Calcium 40 mg 03/02/25 21:00 03/02/25 20:50 Atorvastatin Calcium 20 Mg Tablet PO 04/01/25 20:59 40 mg HS ORALIA Administration Baclofen 5 mg 03/02/25 05:12 Baclofen 10 Mg Tablet PO 04/01/25 05:11 TID PRN MUSCLE SPASMS Captopril 12.5 mg 03/02/25 06:00 03/03/25 05:10 Captopril 12.5 Mg Tablet PO 04/01/25 05:59 12.5 mg TID ORALIA Administration Dexamethasone 1 mg 03/03/25 09:00 03/03/25 09:18 Dexamethasone 1 Mg Tablet PO 04/02/25 08:59 Not Given QDAY [facility] Protocol Dextrose 25 ml 03/02/25 05:16 Dextrose 50%-Water Inj 50 Ml Syringe IV 04/01/25 05:15 Q15MIN PRN BG 50-70 responsive npo pt Dextrose 50 ml 03/02/25 05:16 Dextrose 50%-Water Inj 50 Ml Syringe IV 04/01/25 05:15 Q15MIN PRN BG <50 OR BG <70 & pt unresponsive Glucagon 1 mg 03/02/25 05:16 Glucagon Inj 1 Mg Vial IM Q15MIN PRN BG <70, and no IV access Heparin Sodium (Porcine) 5,000 unit 03/02/25 09:00 03/03/25 08:18 Heparin Sod Inj 5000 Unit/Ml Vial SC 03/16/25 08:59 5,000 unit Q12HR ORALIA Administration Hydralazine HCl 10 mg 03/03/25 08:30 Hydralazine Inj 20 Mg/Ml Vial IVP 04/02/25 09:59 Q2HR PRN SBP>140mmHg Hydromorphone HCl 0.25 mg 03/02/25 05:06 03/03/25 04:57 Hydromorphone Inj 2 Mg/Ml Vial IVP 03/07/25 05:05 0.25 mg Q2H PRN Administration PAIN SCALE 4-10(Mod-Sev Acetaminophen 1,000 mg in 100 mls @ 250 mls/hr 03/02/25 14:00 03/03/25 05:42 Ofirmev Inj IV 03/03/25 14:23 250 mls/hr Q8HR ORALIA Administration Magnesium Sulfate 4 gm in 50 mls @ 12.5 mls/hr 03/03/25 10:14 03/03/25 12:13 Magnesium Sulfate Ivpb IV 03/03/25 14:13 12.5 mls/hr X1 ONE Administration Insulin Glargine 16 unit 03/03/25 21:00 Insulin Glargine (Lantus) 5 Unit/0.05 Ml (Per 5 Units) SC 04/02/25 20:59 HS ORAILA Insulin Human Lispro 0 unit 03/02/25 21:00 03/03/25 12:14 Insulin Lispro (Admelog) 1 Unit/0.01 Ml Unit SC 04/01/25 20:59 2 unit ACHS ORALIA Administration Protocol Labetalol HCl 10 mg 03/03/25 08:32 Labetalol Inj 5 Mg/Ml Vial 20 Ml IVP 04/02/25 08:30 Q15MIN PRN SBP>140mmHg Levetiracetam 500 mg 03/02/25 09:00 03/03/25 08:20 Levetiracetam Liqd 500 Mg/5 Ml Udc PO 04/01/25 08:59 500 mg BID ORALIA Administration Melatonin 3 mg 03/02/25 21:00 03/02/25 20:51 Melatonin 3 Mg Tablet PO 04/01/25 20:59 3 mg HS ORALIA Administration Metoprolol Tartrate 25 mg 03/02/25 09:00 03/03/25 08:18 Metoprolol Tartrate 25 Mg Tablet PO 04/01/25 08:59 25 mg BID ORALIA Administration Multivitamins 1 tab 03/02/25 09:00 03/03/25 08:18 Multivitamins Tablet PO 04/01/25 08:59 1 tab QDAY [facility] Administration Ondansetron HCl 4 mg 03/02/25 05:06 Ondansetron Inj 2 Mg/Ml Inj 2 Ml IVP 04/01/25 05:05 Q6H PRN NAUSEA OR VOMITING Protocol Pantoprazole Sodium 40 mg 03/02/25 09:00 03/03/25 08:19 Pantoprazole 40 Mg Tablet PO 04/01/25 08:59 40 mg QDAY [facility] Administration Sennosides 1 tab 03/02/25 09:00 03/03/25 08:19 Senna Tablet PO 04/01/25 08:59 1 tab QDAY [facility] Administration Protocol Plan 89-year-old female with past medical history of meningioma s/p craniotomy and resection, CVA, CAD s/p CABG, DM2, hypertension, and hyperlipidemia was transferred back on 03/02/2025 from [facility] after she was transferred from our institution to [facility] on 02/12/2025 for further management of patient's meningioma. #Meningioma s/p craniotomy and resection Patient was transferred back on 03/02/2025 after getting craniotomy and resection of meningioma at [facility] on 02/25/2025. AO x 3 and able to follow commands. Plan: Maintain SBP below 140 Patient is currently on amlodipine 10 mg daily, captopril 12.5 mg 3 times daily, and metoprolol tartrate 25 mg p.o. twice daily for tight blood pressure control Labetaolol 10mg as needed if SBP >140 Keppra 500 twice daily Dexamethasone 1mg once daily, will taper. Atorvastatin 40 mg at bedtime Acetaminophen 1gm IV thrice daily for headache Baclofen 5 mg 3 times daily as needed for muscle spasms Multivitamin and vitamin C ordered for wound healing Neurologist, Dr. Lopez consulted and recommended to continue current management Patient to resume Plavix on 03/11/2025 per [facility] recommendations Dysphagia 1 diet pur?ed, advanced as stated per speech therapy Patient will require assistance with feeding and patient was to be sitting upright and taking small bites at a time and to be fed slowly. Aspiration precautions Neurochecks every 4 hours Wound care ordered, katelynn removal on 03/11/2025 Chronic diseases: #CAD s/p CABG #Hx of DM2 #Hx of hypertension #Hx of hyperlipidemia Will continue to hold Plavix until 03/11/2025 as per [facility] recommendations Lantus 12 units at bedtime and ISS Hypoglycemia protocol ordered Tight BP control with captopril 12.5 mg 3 times daily, amlodipine 10 mg daily, metoprolol titrate 25 mg twice daily Atorvastatin 40 mg at bedtime Disposition: Patient admitted to telemetry. Diet: Pureed GI prophylaxis: protonix DVT prophylaxis: heparin sub Code: Full Patient plan of care was discussed with the attending physician, Dr. Dove and senior resident Dr. Erika Da Silva, PGY1 Attending Provider Attestation/Addendum No signs of GI bleed I have discussed and was present for the essential components of the history, physical examination, diagnosis, and treatment plan with the resident. I agree with the patient's care as documented by the resident and amended herein by me. Mega Dove DO. Patient seen and evaluated this AM. No acute events overnight, vital signs stable, patient afebrile. Patient is a 89-year-old female who was transferred back on 03/[address] [facility] status post craniotomy needed for cerebral edema secondary to meningioma which is been resected. The patient is significantly improved mentation kitchen from when she got here. We are continuing a Decadron taper which should be complete in the next 2 days, will replete electrolytes as necessary, goal SBP less than 140 mmHg, the patient is presently on amlodipine 10 mg daily and captopril 12.5 mg 3 times daily. We also have as needed labetalol and hydralazine on board. We did consult neurology for any additional recommendations, which are appreciated. We did speak with the patient's daughters today, we are searching for an adequate SNF facility for continued physical therapy and recovery. Although this document has been carefully reviewed, there may still be some phonetic and other typographical errors. These errors are purely grammatical due to imperfections in the software program and should not be construed in any way to compromise the substance of the patient's medical care during this visit.
[2025-03-03] MEDS: POTASSIUM CHLORIDE 20 mEq TABCR 40 MEQ PO (15:44)
[2025-03-03] MEDS: INSULIN GLARGINE (Lantus) 5 UNIT/0.05 ML (PER 5 UNITS) 12 UNIT SC (20:19)
[2025-03-03] MEDS: MELATONIN 3 MG TABLET PO (20:22)
[2025-03-03] MEDS: ATORVASTATIN CALCIUM 20 MG TABLET 40 MG PO (20:22)
--- NOTE | 2025-03-03 23:48 | PD.NEUROPROG ---
Documentation for date of: 03/03/25 Subjective Subjective Interval history: Patient was seen in telemetry today at the bedside, no sz/myoclonic jerks reported. Denies any new symptoms. Able to tolerate oral diet. Exam - Neurology Vital Signs Temp Pulse Resp BP Pulse Ox O2 Del Method 97.1 F 75 16 154/60 H 91 L Room Air 03/03/25 20:00 03/03/25 21:33 03/03/25 20:00 03/03/25 21:33 03/03/25 20:00 03/03/25 20:00 Narrative Exam General: wb, wn, female in NAD HEENT: Normocephalic, mucous membranes moist. incision noted Heart: Regular rate and rhythm, no murmurs. Lungs: Clear to auscultation with no wheezing or crackles. Abdomen: Soft, nondistended, nontender, positive bowel sounds. ?No guarding or rebound tenderness. Neurologic: Alert and oriented x3, no gross focal neurological deficit, moving all 4 extremities. Extremities: No edema. Skin: Noted ecchymoses in the face. Objective Labs 03/03/25 04:53 03/03/25 04:53 Labs: Laboratory Results - last 24 hr 03/03/25 04:53 WBC 5.5 RBC 3.15 L Hgb 9.2 L Hct 26.7 L MCV 85 MCH 29.2 MCHC 34.5 RDW Std Deviation 61.9 H Plt Count 155 Neut % (Auto) 77 Lymph % (Auto) 13 [place] % (Auto) 6 Eos % (Auto) 3 Baso % (Auto) 0 Neut # (Auto) 4.3 Lymph # (Auto) 0.7 L [place] # (Auto) 0.3 Eos # (Auto) 0.2 Baso # (Auto) 0.0 Immature Gran # (Auto) 0.04 H Absolute Nucleated RBC 0.00 Immature Gran % 1 H Nucleated RBC % 0 Sodium 141 Potassium 3.5 Chloride 101 Carbon Dioxide 33.7 H Anion Gap 6 L BUN 14 Creatinine 0.5 L Estim Creat Clear Calc 63.9 eGFR > 60 BUN/Creatinine Ratio 28 H Glucose 229 H Calculated Osmolality 288 Calcium 8.5 Corrected Calcium 9.4 Magnesium 1.4 L Total Bilirubin 0.5 AST 19 ALT 11 Alkaline Phosphatase 138 H Total Protein 4.5 L Albumin 2.9 L Globulin 1.6 L Albumin/Globulin Ratio 1.8 Assessment & Plan Assessment and plan (1) Meningioma: Status: Chronic Assessment and plan: s/p minimal resection sz secondary to cerebral edema and tumor progression Stable now, continue Keppra and Decadran as recommended by [facility] NSG. PT/OT/ST evaluation waiting for placement in the acute rehab. (2) Diabetes 1.5, managed as type 2: Status: Chronic Assessment and plan: FSG checks and follow sliding scale insulin per protocol. (3) Hypertension: Status: Chronic Assessment and plan: needs aggressive control, noted that she is on Ameloride, metoprolol and captopril
[2025-03-04] VITALS (22 sets, daily range): BP systolic 116–167; BP diastolic 57–99; PULSE 74–98; RESP 15–97; TEMP 36.6–37.1; O2SAT 93–96; BMI 25.0; BMI 12.0
[2025-03-04] MEDS: hydrALAZINE INJ 20 MG/ML VIAL 10 MG IVP ×2 (00:48→23:59)
[2025-03-04] MEDS: LABETALOL INJ 5 MG/ML VIAL 20 ML 10 MG IVP ×3 (01:56→22:43)
[2025-03-04] MEDS: HYDROmorphone INJ 2 MG/ML VIAL 0.25 MG IVP ×2 (02:02→17:59)
[2025-03-04 05:39] LABS: Basophils % (Auto) 0 % (0-2.5); Eosinophils # (Auto) 0.4 Thou/mm3 (0.0-0.5); Eosinophils % (Auto) 4 % (0-10); Hematocrit 28.8 % (36.0-46.0); Hemoglobin 9.5 g/dL (12.0-16.0); Immature Granulocytes % (Auto) 1 % (0-0); Immature Granulocytes Auto 0.07 Thou/mm3 (0.00-0.00); Lymphocytes # (Auto) 1.2 Thou/mm3 (1.0-4.8); Lymphocytes % (Auto) 15 % (10-50); Mean Corpuscular Volume 85 fL (80-100); Monocytes # (Auto) 0.5 Thou/mm3 (0.0-0.8); Monocytes % (Auto) 6 % (0-12); Neutrophils % (Auto) 74 % (37-80); Nucleated Red Blood Cell % 0 /100 WBC (0); Platelet Count 178 Thou/mm3 (140-440); RDW Standard Deviation 64.4 fL (36.4-46.3); Red Blood Count 3.39 Miln/mm3 (4.00-5.20); White Blood Count 8.1 Thou/mm3 (3.6-11.0)
[2025-03-04 06:15] LABS: Alanine Aminotransferase 12 U/L (10-49); Albumin, Serum 3.1 gm/dL (3.4-4.8); Albumin/Globulin Ratio 1.7 (1.2-2.2); Alkaline Phosphatase 141 U/L (46-116); Anion Gap 5 (7-16); Aspartate Amino Transferase 26 U/L (0-34); BUN/Creatinine Ratio 23 Ratio (12-20); Bilirubin,Total 0.4 mg/dL (0.3-1.2); Blood Urea Nitrogen 14 mg/dL (9-23); Calcium 8.5 mg/dL (8.3-10.6); Calcium (Corrected) 9.2 mg/dL (8.5-10.1); Carbon Dioxide 33.2 mMol/L (20.0-31.0); Chloride 100 mMol/L (98-107); Creatinine (Component) 0.6 mg/dL (0.6-1.3); Estimated Creatinine Clearance 53.3 mL/min (>60); Globulin 1.8 gm/dL (2.3-3.5); Glucose 139 mg/dL (74-106); Magnesium 1.8 mg/dL (1.6-2.6); Osmolality,Calculated 278 (275-295); Potassium 3.9 mMol/L (3.4-5.1); Sodium 138 mMol/L (136-145); Total Protein 4.9 gm/dL (5.7-8.2); eGFR > 60 See Note
--- NOTE | 2025-03-04 12:01 | PC.SS ---
Follow up note: Patient has been accepted at [facility]. SS spoke to daughter, Jennifer, and she is agreeable. SS spoke to admissions who state they now have a bed available. SS udpated physician who needs to re-evaluate patient. Possible d/c today. [facility] #[phone] Report# [phone]
[2025-03-04] MEDS: INSULIN LISPRO (AdmeLOG) 1 UNIT/0.01 ML UNIT SC ×3 (12:36→21:20)
--- NOTE | 2025-03-04 17:29 | ESPR_ITS ---
<Statement entered by Andrew James MD - 03/04/25 17:45> I discussed with and supervised the project intern physician involved in the care of this patient. Patient assessment and plan was discussed with entire medicine team, including my attending. I agree with the assessment and plan as documented by project intern doctor. Patient care was discussed with my attending physician Dr. Nicole James, PGY-2 Documentation for date of: 03/04/25 Subjective Subjective Interval history: Patient is seen and examined at bedside No acute overnight events. Patient is having breakfast and is responding to questions with simple answers and not interactive Daughter is at the bedside and explained about her medical condition and answered all her questions to satisfaction Vitals are stable. Physical examination remains unchanged As patient is mildly drowsy today, will observe her overnight and will discharge tomorrow if the patient is clinically stable. Exam Vital Signs Temp Pulse Resp BP Pulse Ox O2 Del Method 97.9 F 81 18 116/84 95 Room Air 03/04/25 16:00 03/04/25 16:00 03/04/25 16:00 03/04/25 16:00 03/04/25 16:00 03/04/25 16:00 Narrative Exam General: Awake. noted echymosis on the face HEENT: Normocephalic, atraumatic, mucous membranes moist. Heart: Regular rate and rhythm, no murmurs. Lungs: Clear to auscultation with no wheezing or crackles. Abdomen: Soft, nondistended, nontender, positive bowel sounds. ?No guarding or rebound tenderness. Neurologic: Alert and oriented x3, no gross neurological deficit, and patient able to move all 4 extremities. noted katelynn on the head and site appears clean and uninfected Extremities: No edema. Skin: No rash or ecchymoses. Objective Labs 03/05/25 04:40 03/05/25 04:40 Labs: Laboratory Results - last 24 hr 03/04/25 05:10 WBC 8.1 D RBC 3.39 L Hgb 9.5 L Hct 28.8 L MCV 85 MCH 28.0 MCHC 33.0 RDW Std Deviation 64.4 H Plt Count 178 Neut % (Auto) 74 Lymph % (Auto) 15 [place] % (Auto) 6 Eos % (Auto) 4 Baso % (Auto) 0 Neut # (Auto) 6.0 Lymph # (Auto) 1.2 [place] # (Auto) 0.5 Eos # (Auto) 0.4 Baso # (Auto) 0.0 Immature Gran # (Auto) 0.07 H Absolute Nucleated RBC 0.00 Immature Gran % 1 H Nucleated RBC % 0 Sodium 138 Potassium 3.9 Chloride 100 Carbon Dioxide 33.2 H Anion Gap 5 L BUN 14 Creatinine 0.6 Estim Creat Clear Calc 53.3 L eGFR > 60 BUN/Creatinine Ratio 23 H Glucose 139 H D Calculated Osmolality 278 Calcium 8.5 Corrected Calcium 9.2 Magnesium 1.8 Total Bilirubin 0.4 AST 26 ALT 12 Alkaline Phosphatase 141 H Total Protein 4.9 L Albumin 3.1 L Globulin 1.8 L Albumin/Globulin Ratio 1.7 Quality Measures Quality Measures VTE prophylaxis Advance care planning discussed with:: patient and child Assessment & Plan Assessment Current Active Medications: Generic Name Dose Route Start Last Admin Trade Name Freq PRN Reason Stop Dose Admin Amlodipine Besylate 10 mg 03/03/25 09:00 03/04/25 12:21 Amlodipine Besylate 5 Mg Tablet PO 04/02/25 08:59 Not Given QDAY ORALIA Ascorbic Acid 500 mg 03/02/25 09:00 03/04/25 12:22 Ascorbic Acid 250 Mg Tablet PO 04/01/25 08:59 Not Given QDAY ORALIA Atorvastatin Calcium 40 mg 03/02/25 21:00 03/03/25 20:22 Atorvastatin Calcium 20 Mg Tablet PO 04/01/25 20:59 40 mg HS ORALIA Administration Baclofen 5 mg 03/02/25 05:12 Baclofen 10 Mg Tablet PO 04/01/25 05:11 TID PRN MUSCLE SPASMS Captopril 12.5 mg 03/02/25 06:00 03/04/25 15:18 Captopril 12.5 Mg Tablet PO 04/01/25 05:59 12.5 mg TID ORALIA Administration Dexamethasone 1 mg 03/03/25 09:00 03/04/25 12:22 Dexamethasone 1 Mg Tablet PO 04/02/25 08:59 Not Given QDAY ORALIA Protocol Dextrose 25 ml 03/02/25 05:16 Dextrose 50%-Water Inj 50 Ml Syringe IV 04/01/25 05:15 Q15MIN PRN BG 50-70 responsive npo pt Dextrose 50 ml 03/02/25 05:16 Dextrose 50%-Water Inj 50 Ml Syringe IV 04/01/25 05:15 Q15MIN PRN BG <50 OR BG <70 & pt unresponsive Glucagon 1 mg 03/02/25 05:16 Glucagon Inj 1 Mg Vial IM Q15MIN PRN BG <70, and no IV access Heparin Sodium (Porcine) 5,000 unit 03/02/25 09:00 03/04/25 12:22 Heparin Sod Inj 5000 Unit/Ml Vial SC 03/16/25 08:59 Not Given Q12HR ORALIA Hydralazine HCl 10 mg 03/03/25 08:30 03/04/25 00:48 Hydralazine Inj 20 Mg/Ml Vial IVP 04/02/25 09:59 10 mg Q2HR PRN Administration SBP>140mmHg Hydromorphone HCl 0.25 mg 03/02/25 05:06 03/04/25 02:02 Hydromorphone Inj 2 Mg/Ml Vial IVP 03/07/25 05:05 0.25 mg Q2H PRN Administration PAIN SCALE 4-10(Mod-Sev Insulin Glargine 12 unit 03/03/25 21:00 03/03/25 20:19 Insulin Glargine (Lantus) 5 Unit/0.05 Ml (Per 5 Units) SC 04/02/25 20:59 12 unit HS ORALIA Administration Insulin Human Lispro 0 unit 03/02/25 21:00 03/04/25 12:36 Insulin Lispro (Admelog) 1 Unit/0.01 Ml Unit SC 04/01/25 20:59 1 unit ACHS ORALIA Administration Protocol Labetalol HCl 10 mg 03/03/25 08:32 03/04/25 15:19 Labetalol Inj 5 Mg/Ml Vial 20 Ml IVP 04/02/25 08:30 10 mg Q15MIN PRN Administration SBP>140mmHg Levetiracetam 500 mg 03/02/25 09:00 03/04/25 12:22 Levetiracetam Liqd 500 Mg/5 Ml Udc PO 04/01/25 08:59 Not Given BID ORALIA Melatonin 3 mg 03/02/25 21:00 03/03/25 20:22 Melatonin 3 Mg Tablet PO 04/01/25 20:59 3 mg HS ORALIA Administration Metoprolol Tartrate 25 mg 03/02/25 09:00 03/04/25 12:22 Metoprolol Tartrate 25 Mg Tablet PO 04/01/25 08:59 Not Given BID ORALIA Multivitamins 1 tab 03/02/25 09:00 03/04/25 12:22 Multivitamins Tablet PO 04/01/25 08:59 Not Given QDAY [facility] Ondansetron HCl 4 mg 03/02/25 05:06 Ondansetron Inj 2 Mg/Ml Inj 2 Ml IVP 04/01/25 05:05 Q6H PRN NAUSEA OR VOMITING Protocol Pantoprazole Sodium 40 mg 03/02/25 09:00 03/04/25 12:22 Pantoprazole 40 Mg Tablet PO 04/01/25 08:59 Not Given QDAY [facility] Polyethylene Glycol 17 gm 03/04/25 09:00 03/04/25 12:23 Polyethylene Glycol 17 Gm Packet PO 04/03/25 08:59 Not Given QDAY [facility] Sennosides 1 tab 03/02/25 09:00 03/04/25 12:23 Senna Tablet PO 04/01/25 08:59 Not Given QDAY [facility] Protocol Plan 89-year-old female with past medical history of meningioma s/p craniotomy and resection, CVA, CAD s/p CABG, DM2, hypertension, and hyperlipidemia was transferred back on 03/02/2025 from [facility] after she was transferred from our institution to [facility] on 02/12/2025 for further management of patient's meningioma. #Meningioma s/p craniotomy and resection Patient was transferred back on 03/02/2025 after getting craniotomy and resection of meningioma at [facility] on 02/25/2025. AO x 3 and able to follow commands. Plan: Maintain SBP below 140 Patient is currently on amlodipine 10 mg daily, captopril 12.5 mg 3 times daily, and metoprolol tartrate 25 mg p.o. twice daily for tight blood pressure control Labetaolol 10mg as needed if SBP >140, hydralazine 25 Mg thrice daily as needed if SBP greater than 140 Keppra 500 twice daily Dexamethasone 1mg once daily, will taper. Atorvastatin 40 mg at bedtime Baclofen 5 mg 3 times daily as needed for muscle spasms Multivitamin and vitamin C ordered for wound healing Neurologist, Dr. Lopez consulted and recommended to continue current management Patient to resume Plavix on 03/11/2025 per [facility] recommendations Dysphagia 1 diet pur?ed, advanced as stated per speech therapy Patient will require assistance with feeding and patient was to be sitting upright and taking small bites at a time and to be fed slowly. Aspiration precautions Neurochecks every 4 hours Wound care ordered, katelynn removal on 03/11/2025 Chronic diseases: #CAD s/p CABG #Hx of DM2 #Hx of hypertension #Hx of hyperlipidemia Will continue to hold Plavix until 03/11/2025 as per [facility] recommendations Lantus 12 units at bedtime and ISS Hypoglycemia protocol ordered Tight BP control with captopril 12.5 mg 3 times daily, amlodipine 10 mg daily, metoprolol titrate 25 mg twice daily Atorvastatin 40 mg at bedtime Disposition: Patient admitted to telemetry. Diet: Pureed GI prophylaxis: protonix DVT prophylaxis: heparin sub Code: Full Patient plan of care was discussed with the attending physician, Dr. Rivera and senior resident Dr. Erika Da Silva, PGY1 Attending Provider Attestation/Addendum Lyla High, , attest that I was physically present for the sher portions of the service and evaluated the patient with the resident and I reviewed and discussed the case with the resident and agree with the resident's findings and plans of care as documented above Patient seen and evaluated this AM. She has been very somnolent throughout the day. She has been able to answer questions appropriately and follow commands, but quickly falls back asleep. Will continue to monitor closely. If patient remains stable in AM, anticipate DC to rehab within next 24-48h
[2025-03-04] MEDS: HEPARIN SOD INJ 5000 UNIT/ML VIAL SC (21:20)
[2025-03-04] MEDS: ATORVASTATIN CALCIUM 20 MG TABLET 40 MG PO (21:20)
[2025-03-04] MEDS: INSULIN GLARGINE (Lantus) 5 UNIT/0.05 ML (PER 5 UNITS) 12 UNIT SC (21:20)
[2025-03-04] MEDS: METOPROLOL TARTRATE 25 MG TABLET PO (21:21)
[2025-03-04] MEDS: MELATONIN 3 MG TABLET PO (21:21)
[2025-03-04] MEDS: levETIRAcetam LIQD 500 MG/5 ML UDC PO (21:21)
--- NOTE | 2025-03-04 23:13 | ESPR_ITS ---
Documentation for date of: 03/04/25 Subjective Subjective Interval history: Patient was seen in telemetry today at the bedside, no sz/myoclonic jerks reported. Denies any new symptoms. Able to tolerate oral diet. Exam - Neurology Vital Signs Temp Pulse Resp BP Pulse Ox O2 Del Method 98.7 F 98 17 150/94 H 94 L Room Air 03/04/25 20:00 03/04/25 22:43 03/04/25 20:00 03/04/25 22:43 03/04/25 20:00 03/04/25 20:00 Narrative Exam General: wb, wn, female in NAD HEENT: Normocephalic, mucous membranes moist. incision noted Heart: Regular rate and rhythm, no murmurs. Lungs: Clear to auscultation with no wheezing or crackles. Abdomen: Soft, nondistended, nontender, positive bowel sounds. ?No guarding or rebound tenderness. Neurologic: Alert and oriented x3, no gross focal neurological deficit, moving all 4 extremities. Extremities: No edema. Skin: Noted ecchymoses in the face. Objective Labs 03/05/25 04:40 03/05/25 04:40 Labs: Laboratory Results - last 24 hr 03/04/25 05:10 WBC 8.1 D RBC 3.39 L Hgb 9.5 L Hct 28.8 L MCV 85 MCH 28.0 MCHC 33.0 RDW Std Deviation 64.4 H Plt Count 178 Neut % (Auto) 74 Lymph % (Auto) 15 [place] % (Auto) 6 Eos % (Auto) 4 Baso % (Auto) 0 Neut # (Auto) 6.0 Lymph # (Auto) 1.2 [place] # (Auto) 0.5 Eos # (Auto) 0.4 Baso # (Auto) 0.0 Immature Gran # (Auto) 0.07 H Absolute Nucleated RBC 0.00 Immature Gran % 1 H Nucleated RBC % 0 Sodium 138 Potassium 3.9 Chloride 100 Carbon Dioxide 33.2 H Anion Gap 5 L BUN 14 Creatinine 0.6 Estim Creat Clear Calc 53.3 L eGFR > 60 BUN/Creatinine Ratio 23 H Glucose 139 H D Calculated Osmolality 278 Calcium 8.5 Corrected Calcium 9.2 Magnesium 1.8 Total Bilirubin 0.4 AST 26 ALT 12 Alkaline Phosphatase 141 H Total Protein 4.9 L Albumin 3.1 L Globulin 1.8 L Albumin/Globulin Ratio 1.7 Assessment & Plan Assessment and plan (1) Meningioma: Status: Chronic Assessment and plan: s/p minimal resection sz secondary to cerebral edema and tumor progression Stable now, continue Keppra and Decadran as recommended by [facility] NSG. PT/OT/ST evaluation waiting for placement in the acute rehab. (2) Diabetes 1.5, managed as type 2: Status: Chronic Assessment and plan: FSG checks and follow sliding scale insulin per protocol. (3) Hypertension: Status: Chronic Assessment and plan: needs aggressive control, noted that she is on Ameloride, metoprolol and captopril
[2025-03-05] VITALS (20 sets, daily range): BP systolic 126–166; BP diastolic 59–99; PULSE 61–91; RESP 16–96; TEMP 36.1–37.2; O2SAT 94–97; BMI 24.2
[2025-03-05] MEDS: hydrALAZINE HCL 25 MG TABLET PO ×2 (01:53→17:12)
[2025-03-05 06:21] LABS: Basophils % (Auto) 0 % (0-2.5); Eosinophils # (Auto) 0.3 Thou/mm3 (0.0-0.5); Eosinophils % (Auto) 5 % (0-10); Hematocrit 26.9 % (36.0-46.0); Hemoglobin 9.2 g/dL (12.0-16.0); Immature Granulocytes % (Auto) 0 % (0-0); Immature Granulocytes Auto 0.02 Thou/mm3 (0.00-0.00); Lymphocytes % (Auto) 18 % (10-50); Mean Corpuscular HGB Conc 34.2 g/dl (31.0-37.0); Mean Corpuscular Hemoglobin 28.9 pg (25.0-35.0); Mean Corpuscular Volume 85 fL (80-100); Monocytes # (Auto) 0.4 Thou/mm3 (0.0-0.8); Monocytes % (Auto) 7 % (0-12); Neutrophils # (Auto) 3.9 Thou/mm3 (1.8-7.7); Neutrophils % (Auto) 70 % (37-80); Nucleated Red Blood Cell % 0 /100 WBC (0); Platelet Count 168 Thou/mm3 (140-440); RDW Standard Deviation 65.2 fL (36.4-46.3); Red Blood Count 3.18 Miln/mm3 (4.00-5.20); White Blood Count 5.5 Thou/mm3 (3.6-11.0)
[2025-03-05 06:53] LABS: Alanine Aminotransferase 17 U/L (10-49); Albumin, Serum 2.9 gm/dL (3.4-4.8); Albumin/Globulin Ratio 1.8 (1.2-2.2); Alkaline Phosphatase 114 U/L (46-116); Anion Gap 8 (7-16); Aspartate Amino Transferase 33 U/L (0-34); BUN/Creatinine Ratio 28 Ratio (12-20); Bilirubin,Total 0.5 mg/dL (0.3-1.2); Blood Urea Nitrogen 14 mg/dL (9-23); Calcium 8.3 mg/dL (8.3-10.6); Calcium (Corrected) 9.2 mg/dL (8.5-10.1); Carbon Dioxide 32.9 mMol/L (20.0-31.0); Chloride 98 mMol/L (98-107); Creatinine (Component) 0.5 mg/dL (0.6-1.3); Estimated Creatinine Clearance 63.3 mL/min (>60); Globulin 1.6 gm/dL (2.3-3.5); Glucose 104 mg/dL (74-106); Magnesium 1.6 mg/dL (1.6-2.6); Osmolality,Calculated 278 (275-295); Potassium 3.1 mMol/L (3.4-5.1); Sodium 139 mMol/L (136-145); Total Protein 4.5 gm/dL (5.7-8.2); eGFR > 60 See Note
--- NOTE | 2025-03-05 08:42 | XR_ITS ---
Examination: CT brain head without contrast. 2-D sagittal coronal reconstructions Date and time of exam:March 05, 2025 0903 hrs. Indications: Altered mental status this morning CTDI: vol (mGy):50.5 DLP: (mGycm):1055 Technique: Multiple CT axial sections of the brain have been obtained, 5 mm slice thickness. Contrast has not been administered. 2-D sagittal, coronal reconstructions have been obtained Low dose protocols were performed. One or more of the following dose reduction techniques were used; automated exposure control, adjustment of the mA and/or KV according to patient size, use of iterative reconstruction technique. Findings: Compared with February 08, 2025, the calcified right frontal convexity tumor mass is again depicted Right craniotomy defect There remains significant edema in the right frontal lobe impinging upon the anterior margin of the right lateral ventricle No interval midline shift There is hemorrhage density presumably postoperative adjacent to the frontal craniotomy defect, axial image 16, measuring up to 11 mm in thickness Impression: Post right craniotomy with persistent calcified right frontal tumor mass and surrounding edema There is postoperative extra-axial hemorrhage peripheral to the right frontal lobe measuring up to 11 mm in thickness Recommend referral to the patient's hospital where the patient's surgery was performed
[2025-03-05] MEDS: levETIRAcetam LIQD 500 MG/5 ML UDC PO ×2 (09:41→22:16)
[2025-03-05] MEDS: Magnesium Sulfate 4 GM Ivpb 4 GM/50 ML BAG IV (09:42)
[2025-03-05] MEDS: DEXAMETHASONE SOD PHOS INJ 4 MG/ML VIAL 1 MG IVP (09:43)
[2025-03-05] MEDS: HEPARIN SOD INJ 5000 UNIT/ML VIAL SC ×2 (09:47→21:52)
[2025-03-05 12:30] LABS: Base Excess 9 (-3-3); HCO3 33 mEq/L (20-26); Inspired Oxygen, FIO2 21 %; O2 Saturation 98 % (91-98); PCO2 43 mmHg (32.0-48.0); PO2 84 mmHg (83-108); pH, Arterial 7.49 (7.35-7.45)
[2025-03-05 12:36] LABS: Allen Test Performed/OK; Puncture Site Right Radial
--- NOTE | 2025-03-05 12:40 | PC.NURSE ---
Patient is harder to arouse, called Dr. Rivera, she came bedside, ABG ordered, vital signs are stable, Glucose is at 84, PERRl. Will follow up with ABG and continue to monitor.
[2025-03-05] MEDS: ENALAPRILAT INJ 1.25 MG/ML VIAL IVP (14:04)
--- NOTE | 2025-03-05 14:46 | PD.RESPRO ---
Documentation for date of: 03/05/25 Subjective Subjective Interval history: Patient is seen and examined at bedside No acute overnight events. Patient is drowsy and is responding to mild painful stimuli Overnight, patient is alert according to the night nurse Vitals are stable. As patient is not able to take oral medication, given 1 mg IV dexamethasone and 40 mill equivalents of IV potassium in view of hypokalemia, 3.1 Ocular ultrasound was done which did not show any signs of raised ICP. Repeat CT head done did not show any features of raised a CT, noted edema surrounding the mass Held her captopril and started on IV enalapril Trying to contact with [facility] for further recommendations. EEG is ordered to rule out seizure activity Explained about patient's current situation to her family members, daughter at bedside Exam Vital Signs Temp Pulse Resp BP Pulse Ox O2 Del Method 96.9 F 79 16 159/81 H 95 Room Air 03/05/25 12:00 03/05/25 14:04 03/05/25 12:00 03/05/25 14:04 03/05/25 12:00 03/05/25 12:00 Narrative Exam General: Lethargic. noted echymosis on the face HEENT: Normocephalic, atraumatic, mucous membranes moist. Heart: Regular rate and rhythm, no murmurs. Lungs: Clear to auscultation with no wheezing or crackles. Abdomen: Soft, nondistended, nontender, positive bowel sounds. ?No guarding or rebound tenderness. Neurologic: no gross neurological deficit, and patient able to move all 4 extremities. noted katelynn on the head and site appears clean and uninfected Extremities: No edema. Skin: No rash or ecchymoses. Objective Labs 03/06/25 05:27 03/06/25 05:27 Labs: Laboratory Results - last 24 hr 03/05/25 03/05/25 04:40 12:22 WBC 5.5 RBC 3.18 L Hgb 9.2 L Hct 26.9 L MCV 85 MCH 28.9 MCHC 34.2 RDW Std Deviation 65.2 H Plt Count 168 Neut % (Auto) 70 Lymph % (Auto) 18 [place] % (Auto) 7 Eos % (Auto) 5 Baso % (Auto) 0 Neut # (Auto) 3.9 Lymph # (Auto) 1.0 [place] # (Auto) 0.4 Eos # (Auto) 0.3 Baso # (Auto) 0.0 Immature Gran # (Auto) 0.02 H Absolute Nucleated RBC 0.00 Immature Gran % 0 Nucleated RBC % 0 Puncture Site Right Radial ABG pH 7.49 H ABG pCO2 43 ABG pO2 84 ABG HCO3 33 H ABG O2 Saturation 98 ABG Base Excess 9 H FiO2 21 Sodium 139 Potassium 3.1 L D Chloride 98 Carbon Dioxide 32.9 H Anion Gap 8 BUN 14 Creatinine 0.5 L Estim Creat Clear Calc 63.3 eGFR > 60 BUN/Creatinine Ratio 28 H Glucose 104 Calculated Osmolality 278 Calcium 8.3 Corrected Calcium 9.2 Magnesium 1.6 Total Bilirubin 0.5 AST 33 ALT 17 Alkaline Phosphatase 114 D Total Protein 4.5 L Albumin 2.9 L Globulin 1.6 L Albumin/Globulin Ratio 1.8 ABG Interpretation ABG results: 03/05/25 12:22 ABG pH 7.49 H ABG pCO2 43 ABG pO2 84 ABG HCO3 33 H ABG O2 Saturation 98 ABG Base Excess 9 H Quality Measures Quality Measures VTE prophylaxis Advance care planning discussed with:: child and legal surragate Assessment & Plan Assessment Current Active Medications: Generic Name Dose Route Start Last Admin Trade Name Freq PRN Reason Stop Dose Admin Amlodipine Besylate 10 mg 03/03/25 09:00 03/05/25 09:49 Amlodipine Besylate 5 Mg Tablet PO 04/02/25 08:59 Not Given QDAY ORALIA Ascorbic Acid 500 mg 03/02/25 09:00 03/05/25 09:50 Ascorbic Acid 250 Mg Tablet PO 04/01/25 08:59 Not Given QDAY ORALIA Atorvastatin Calcium 40 mg 03/02/25 21:00 03/04/25 21:20 Atorvastatin Calcium 20 Mg Tablet PO 04/01/25 20:59 40 mg HS ORALIA Administration Baclofen 5 mg 03/02/25 05:12 Baclofen 10 Mg Tablet PO 04/01/25 05:11 TID PRN MUSCLE SPASMS Protocol Captopril 12.5 mg 03/02/25 06:00 03/05/25 06:10 Captopril 12.5 Mg Tablet PO 04/01/25 05:59 12.5 mg TID ORALIA Administration Dexamethasone 1 mg 03/03/25 09:00 03/04/25 12:22 Dexamethasone 1 Mg Tablet PO 04/02/25 08:59 Not Given QDAY ORALIA Protocol Dextrose 25 ml 03/02/25 05:16 Dextrose 50%-Water Inj 50 Ml Syringe IV 04/01/25 05:15 Q15MIN PRN BG 50-70 responsive npo pt Dextrose 50 ml 03/02/25 05:16 Dextrose 50%-Water Inj 50 Ml Syringe IV 04/01/25 05:15 Q15MIN PRN BG <50 OR BG <70 & pt unresponsive Enalaprilat 1.25 mg 03/05/25 14:00 03/05/25 14:04 Enalaprilat Inj 1.25 Mg/Ml Vial IVP 04/04/25 13:59 1.25 mg Q8HR ORALIA Administration Glucagon 1 mg 03/02/25 05:16 Glucagon Inj 1 Mg Vial IM Q15MIN PRN BG <70, and no IV access Heparin Sodium (Porcine) 5,000 unit 03/02/25 09:00 03/05/25 09:47 Heparin Sod Inj 5000 Unit/Ml Vial SC 03/16/25 08:59 5,000 unit Q12HR ORALIA Administration Hydralazine HCl 10 mg 03/03/25 08:30 03/04/25 23:59 Hydralazine Inj 20 Mg/Ml Vial IVP 04/02/25 09:59 10 mg Q2HR PRN Administration SBP>140mmHg Hydralazine HCl 25 mg 03/04/25 17:34 03/05/25 01:53 Hydralazine Hcl 25 Mg Tablet PO 04/03/25 21:59 25 mg TID PRN Administration If sbp >140 Hydromorphone HCl 0.25 mg 03/02/25 05:06 03/04/25 17:59 Hydromorphone Inj 2 Mg/Ml Vial IVP 03/07/25 05:05 0.25 mg Q2H PRN Administration PAIN SCALE 4-10(Mod-Sev Insulin Glargine 12 unit 03/03/25 21:00 03/04/25 21:20 Insulin Glargine (Lantus) 5 Unit/0.05 Ml (Per 5 Units) SC 04/02/25 20:59 12 unit HS ORALIA Administration Insulin Human Lispro 0 unit 03/02/25 21:00 03/05/25 11:30 Insulin Lispro (Admelog) 1 Unit/0.01 Ml Unit SC 04/01/25 20:59 Not Given ACHS [facility] Protocol Labetalol HCl 10 mg 03/03/25 08:32 03/04/25 22:43 Labetalol Inj 5 Mg/Ml Vial 20 Ml IVP 04/02/25 08:30 10 mg Q15MIN PRN Administration SBP>140mmHg Levetiracetam 500 mg 03/02/25 09:00 03/05/25 09:41 Levetiracetam Liqd 500 Mg/5 Ml Udc PO 04/01/25 08:59 500 mg BID ORALIA Administration Melatonin 3 mg 03/02/25 21:00 03/04/25 21:21 Melatonin 3 Mg Tablet PO 04/01/25 20:59 3 mg HS ORALIA Administration Metoprolol Tartrate 25 mg 03/02/25 09:00 03/05/25 09:50 Metoprolol Tartrate 25 Mg Tablet PO 04/01/25 08:59 Not Given BID ORALIA Multivitamins 1 tab 03/02/25 09:00 03/05/25 09:50 Multivitamins Tablet PO 04/01/25 08:59 Not Given QDAY [facility] Ondansetron HCl 4 mg 03/02/25 05:06 Ondansetron Inj 2 Mg/Ml Inj 2 Ml IVP 04/01/25 05:05 Q6H PRN NAUSEA OR VOMITING Protocol Pantoprazole Sodium 40 mg 03/02/25 09:00 03/05/25 09:51 Pantoprazole 40 Mg Tablet PO 04/01/25 08:59 Not Given QDAY [facility] Polyethylene Glycol 17 gm 03/04/25 09:00 03/05/25 09:51 Polyethylene Glycol 17 Gm Packet PO 04/03/25 08:59 Not Given QDAY [facility] Sennosides 1 tab 03/02/25 09:00 03/05/25 09:51 Senna Tablet PO 04/01/25 08:59 Not Given QDAY [facility] Protocol Plan 89-year-old female with past medical history of meningioma s/p craniotomy and resection, CVA, CAD s/p CABG, DM2, hypertension, and hyperlipidemia was transferred back on 03/02/2025 from [facility] after she was transferred from our institution to [facility] on 02/12/2025 for further management of patient's meningioma. #Meningioma s/p craniotomy and resection Patient was transferred back on 03/02/2025 after getting craniotomy and resection of meningioma at [facility] on 02/25/2025. AO x 3 and able to follow commands. Plan: Maintain SBP below 140 Patient is currently on amlodipine 10 mg daily, and metoprolol tartrate 25 mg p.o. twice daily for tight blood pressure control Started on enalapril at 0.65 Mg IV push every 8 hourly Keppra 500 twice daily Dexamethasone 1mg once daily, will taper. Atorvastatin 40 mg at bedtime Multivitamin and vitamin C ordered for wound healing Neurologist, Dr. Lopez consulted and recommended to continue current management Patient to resume Plavix on 03/11/2025 per [facility] recommendations Dysphagia 1 diet pur?ed, advanced as stated per speech therapy Patient will require assistance with feeding and patient was to be sitting upright and taking small bites at a time and to be fed slowly. Aspiration precautions Neurochecks every 4 hours Wound care ordered, katelynn removal on 03/11/2025 Chronic diseases: #CAD s/p CABG #Hx of DM2 #Hx of hypertension #Hx of hyperlipidemia Will continue to hold Plavix until 03/11/2025 as per [facility] recommendations Lantus 12 units at bedtime and ISS Hypoglycemia protocol ordered Tight BP control with amlodipine 10 mg daily, metoprolol titrate 25 mg twice daily Atorvastatin 40 mg at bedtime Disposition: Patient admitted to telemetry. Diet: Pureed GI prophylaxis: protonix DVT prophylaxis: heparin sub Code: Full Patient plan of care was discussed with the attending physician, Dr. Nicole Da Silva, PGY1 Attending Provider Attestation/Addendum Lyla High DO, attest that I was physically present for the sher portions of the service and evaluated the patient with the resident and I reviewed and discussed the case with the resident and agree with the resident's findings and plans of care as documented above Patient seen and evaluated in the AM. Patient remains very somnolent. However, patient appears irritated upon arousal. Her movements are purposeful. Patient was not responding to questions or following commands. Due to concern and change in mental status, CAT scan of the head was done and appears unchanged. She has some edema noted postoperatively, continue with steroids at this time. Discussed case with her neurologist who recommended EEG. Family at bedside states that the patient is a deep sleeper and has not had enough sleep in the past few weeks with transfer to different hospitals and surgery. . Patient was reevaluated every few hours and was back at baseline at around 4 PM. She became more alert when EEG was done. There were attempts made to call [facility], but patient was back at baseline, ANO x 4. She states that she has been very tired. Suspect that patient may have change in her sleep cycle resulting in her deep sleep. UA was collected and no bacteria noted. Antihypertensives were switched to IV meds since patient was unable to safely swallow medications.
--- NOTE | 2025-03-05 14:57 | PC.RT ---
Spoke with MD Da Silva in regards to the EEG ordered. I am concerned about the incision across her head. Spoke tp Dr. Whitfield and she verified that it would be ok and that she wants an extended 24 hour EEG
[2025-03-05] MEDS: POTASSIUM CHL 10 mEq IVPB 10 MEQ/100 ML BAG 100 MEQ IV ×4 (15:19→18:09)
--- NOTE | 2025-03-05 15:19 | PC.CM ---
Addendum entered by Columba Hernandez RN 03/05/25 18:31: Patient improved and the request to speak to the neurosurgeon at [facility] was canceled. I called [facility] and canceled the request. Addendum entered by Columba Hernandez RN 03/05/25 15:51: I spoke to [facility] transfer center and I let them know that my doctor would like to speak to the neurosugeon who did surgery on patient when she was at [facility]. They asked me to fax over paperwork. Original Note: [id number] Dr. Zena Piedra wanted to speak to the neurosurgeon who did surgery at [facility]. Dr. Piedra called the urgent number that was provided at discharge and she requested to speak to the neurosurgeon. DR. Piedra stated they were unable to find patient in their system so she asked me to fax a facesheet. I faxed face sheet to the number provided to me by Dr. Piedra [phone].
--- NOTE | 2025-03-05 15:36 | PC.PT ---
Hold therapy today per RN Nati due to pt condition being very lethargic, unable to participate
[2025-03-05 15:51] LABS: Collection Type, Urine Catheter
[2025-03-05] MEDS: LABETALOL INJ 5 MG/ML VIAL 20 ML 10 MG IVP (16:12)
[2025-03-05 16:38] LABS: Bacteria,Urine Rare; Bilirubin,Urine Negative (Negative); Blood,Urine Negative (Negative); Clarity,Urine Clear (Clear/Hazy); Color,Urine Lt-Yellow (Lt Yel-Yel); Culture Indicated,Urine Not Indicated; Glucose, Urine Negative (Negative); Ketones,Urine Negative (Negative); Leukocyte Esterase,Urine Negative (Negative); Nitrite,Urine Negative (Negative); Protein,Urine Negative (Neg - Trace); RBC,Urine 1 /hpf (0-3); Specific Gravity,Urine 1.009 (1.001-1.035); Squamous Epithelial Cell,Urine 4 /hpf (0-5); Urobilinogen,Urine Negative mg/dL (0.0-1.0); WBC,Urine < 1 /hpf (0-5)
--- NOTE | 2025-03-05 16:55 | PC.RT ---
Attempted to do EEG. Could not get any connection to work. Tried for over an hour and 3 different 10-20 caps. Notified MD and associate store manager
--- NOTE | 2025-03-05 20:39 | PC.NURSE ---
72% O2 sat on room air- Applied O2 inh on at 2L/min/nc.
[2025-03-05] MEDS: ENALAPRILAT INJ 1.25 MG/ML VIAL 2.5 MG IVP (22:08)
[2025-03-05] MEDS: METOPROLOL TARTRATE 25 MG TABLET PO (22:13)
[2025-03-05] MEDS: ATORVASTATIN CALCIUM 20 MG TABLET 40 MG PO (22:14)
[2025-03-05] MEDS: INSULIN GLARGINE (Lantus) 5 UNIT/0.05 ML (PER 5 UNITS) 6 UNIT SC (22:28)
--- NOTE | 2025-03-05 22:59 | PD.VPROG1 ---
Telemedicine visit statement This visit was conducted with the use of interactive audio and video telecommunications system that permits real time communication between the patient and the provider. Patient's verbal consent for virtual visit was obtained on 03/05/25 at 2259. Documentation for date of: 03/05/25 Subjective Subjective Interval history: Patient is in telemetry, reportedly had altered mental status, elevated BP. Had a repeat CT with no changes. She was given additional dose of IV decadran 1 mg and loading dose of Keppra. Just around 4 pm, she gradually looking better to the point of able to respond/move all extremities and eat dinner 100 % Virtual exam Vital Signs Temp Pulse Resp BP Pulse Ox O2 Del Method 97.2 F 90 21 H 139/66 H 97 Room Air 03/05/25 20:00 03/05/25 22:13 03/05/25 20:00 03/05/25 22:13 03/05/25 20:00 03/05/25 20:00 Objective Labs 03/05/25 04:40 03/05/25 04:40 Labs: Laboratory Results - last 24 hr 03/05/25 03/05/25 03/05/25 04:40 12:22 15:45 WBC 5.5 RBC 3.18 L Hgb 9.2 L Hct 26.9 L MCV 85 MCH 28.9 MCHC 34.2 RDW Std Deviation 65.2 H Plt Count 168 Neut % (Auto) 70 Lymph % (Auto) 18 [place] % (Auto) 7 Eos % (Auto) 5 Baso % (Auto) 0 Neut # (Auto) 3.9 Lymph # (Auto) 1.0 [place] # (Auto) 0.4 Eos # (Auto) 0.3 Baso # (Auto) 0.0 Immature Gran # (Auto) 0.02 H Absolute Nucleated RBC 0.00 Immature Gran % 0 Nucleated RBC % 0 Puncture Site Right Radial ABG pH 7.49 H ABG pCO2 43 ABG pO2 84 ABG HCO3 33 H ABG O2 Saturation 98 ABG Base Excess 9 H FiO2 21 Sodium 139 Potassium 3.1 L D Chloride 98 Carbon Dioxide 32.9 H Anion Gap 8 BUN 14 Creatinine 0.5 L Estim Creat Clear Calc 63.3 eGFR > 60 BUN/Creatinine Ratio 28 H Glucose 104 Calculated Osmolality 278 Calcium 8.3 Corrected Calcium 9.2 Magnesium 1.6 Total Bilirubin 0.5 AST 33 ALT 17 Alkaline Phosphatase 114 D Total Protein 4.5 L Albumin 2.9 L Globulin 1.6 L Albumin/Globulin Ratio 1.8 Ur Collection Type Catheter Urine Color Lt-Yellow Urine Clarity Clear Urine pH 8.0 H Ur Specific [place] 1.009 Urine Protein Negative Urine Glucose (UA) Negative Urine Ketones Negative Urine Blood Negative Urine Nitrite Negative Urine Bilirubin Negative Urine Urobilinogen (Auto) Negative Ur Leukocyte Esterase Negative Urine RBC 1 Urine WBC < 1 Ur Squamous Epith Cells 4 Urine Bacteria Rare Ur Culture Indicated? Not Indicated ABG Interpretation ABG results: 03/05/25 12:22 ABG pH 7.49 H ABG pCO2 43 ABG pO2 84 ABG HCO3 33 H ABG O2 Saturation 98 ABG Base Excess 9 H Assessment & Plan Assessment 1) Meningioma: Status: Chronic Assessment and plan: s/p minimal resection sz secondary to cerebral edema and tumor progression Stable now, continue Keppra and Decadran as recommended by [facility] NSG. PT/OT/ST evaluation waiting for placement in the acute rehab at [facility] (2) Diabetes 1.5, managed as type 2: Status: Chronic Assessment and plan: FSG checks and follow sliding scale insulin per protocol. (3) Hypertension: Status: Chronic Assessment and plan: needs aggressive control, noted that she is on Ameloride, metoprolol and captopril
[2025-03-06] VITALS (11 sets, daily range): BP systolic 114–137; BP diastolic 57–70; PULSE 65–76; RESP 15–22; TEMP 36.3–37.1; O2SAT 96–100; BMI 23.6
[2025-03-06 06:05] LABS: Basophils % (Auto) 0 % (0-2.5); Eosinophils # (Auto) 0.2 Thou/mm3 (0.0-0.5); Eosinophils % (Auto) 4 % (0-10); Hematocrit 25.8 % (36.0-46.0); Immature Granulocytes % (Auto) 1 % (0-0); Immature Granulocytes Auto 0.03 Thou/mm3 (0.00-0.00); Lymphocytes # (Auto) 0.7 Thou/mm3 (1.0-4.8); Lymphocytes % (Auto) 14 % (10-50); Mean Corpuscular HGB Conc 33.7 g/dl (31.0-37.0); Mean Corpuscular Hemoglobin 28.8 pg (25.0-35.0); Mean Corpuscular Volume 85 fL (80-100); Monocytes # (Auto) 0.4 Thou/mm3 (0.0-0.8); Monocytes % (Auto) 9 % (0-12); Neutrophils # (Auto) 3.4 Thou/mm3 (1.8-7.7); Neutrophils % (Auto) 72 % (37-80); Nucleated Red Blood Cell % 0 /100 WBC (0); Platelet Count 176 Thou/mm3 (140-440); Red Blood Count 3.02 Miln/mm3 (4.00-5.20); White Blood Count 4.7 Thou/mm3 (3.6-11.0)
[2025-03-06 06:06] LABS: Hemoglobin 8.7 g/dL (12.0-16.0)
[2025-03-06 06:24] LABS: Alanine Aminotransferase 21 U/L (10-49); Albumin, Serum 2.8 gm/dL (3.4-4.8); Albumin/Globulin Ratio 1.8 (1.2-2.2); Alkaline Phosphatase 102 U/L (46-116); Anion Gap 8 (7-16); Aspartate Amino Transferase 37 U/L (0-34); BUN/Creatinine Ratio 28 Ratio (12-20); Bilirubin,Total 0.5 mg/dL (0.3-1.2); Blood Urea Nitrogen 14 mg/dL (9-23); Calcium 8.2 mg/dL (8.3-10.6); Calcium (Corrected) 9.2 mg/dL (8.5-10.1); Carbon Dioxide 30.5 mMol/L (20.0-31.0); Chloride 99 mMol/L (98-107); Creatinine (Component) 0.5 mg/dL (0.6-1.3); Estimated Creatinine Clearance 62.5 mL/min (>60); Globulin 1.6 gm/dL (2.3-3.5); Glucose 183 mg/dL (74-106); Osmolality,Calculated 279 (275-295); Potassium 3.7 mMol/L (3.4-5.1); Sodium 137 mMol/L (136-145); Total Protein 4.4 gm/dL (5.7-8.2); eGFR > 60 See Note
[2025-03-06] MEDS: ENALAPRILAT INJ 1.25 MG/ML VIAL 2.5 MG IVP ×2 (06:33→14:44)
[2025-03-06] MEDS: levETIRAcetam LIQD 500 MG/5 ML UDC PO (08:35)
[2025-03-06] MEDS: amLODIPine BESYLATE 5 MG TABLET 10 MG PO (08:35)
[2025-03-06] MEDS: HEPARIN SOD INJ 5000 UNIT/ML VIAL SC (08:35)
[2025-03-06] MEDS: PANTOPRAZOLE 40 MG TABLET PO (08:36)
[2025-03-06] MEDS: METOPROLOL TARTRATE 25 MG TABLET PO (08:36)
[2025-03-06] MEDS: ASCORBIC ACID 250 MG TABLET 500 MG PO (08:36)
[2025-03-06] MEDS: SENNA TABLET 1 TAB PO (08:37)
[2025-03-06] MEDS: MULTIVITAMINS TABLET 1 TAB PO (08:37)
[2025-03-06] MEDS: POLYETHYLENE GLYCOL 17 GM PACKET PO (09:00)
[2025-03-06] MEDS: dexAMETHasone 1 MG TABLET PO (10:48)
--- NOTE | 2025-03-06 10:53 | PC.SS ---
Dm contacted [facility] and spoke to clinical liaison-RN, Lauryn who reported that patient was accepted, pending clinical documentation from last two days, as well as discharge summary. ANGEL notified Dr. Rivera that discharge summary needs to be completed. ANGEL faxed all clinical information to [phone]. Lauryn reported that she will call ANGEL with an ETA, room and physician.
[2025-03-06] MEDS: INSULIN LISPRO (AdmeLOG) 1 UNIT/0.01 ML UNIT SC ×2 (11:43→16:45)
--- NOTE | 2025-03-06 12:17 | PD.RESDS ---
Planned Discharge Date 03/06/25 DS: Providers Provider Date of admission: 03/02/25 03:55 Primary care physician: Physician No Primary/Family Admitting Provider: Shawn Dove DO Attending Provider on Admission: Lyla Rivera DO Consults: 03/02/25 04:47 Referral Occupational Therapy Stat Comment: Referral Registered Dietitian Stat Comment: Health Equity Referral - Knowledge Deficit Routine Comment: Positive screening for knowledge deficit needs. 03/02/25 05:13 Referral Physical Therapy Routine Comment: Physician Instructions: Referral Speech Therapy Routine Comment: 03/02/25 05:41 Referral Wound Care Routine Comment: 03/02/25 11:18 Consult to Neurology / Tele-Neurology Routine Comment: Consulting Provider: Niraj Lopez 03/05/25 14:46 Referral - Belt Fixer Routine Service Needed for Transfer: Neurosurgery Attending Provider on DC: German Da Silva MD Discharging Provider: German Da Silva MD DS: Diagnosis Problem List Completed Was Problem List Reviewed/Reconciled?: Yes Hospital Course Hospital Course Hospital course: Caitlyn is a 89-year-old female w/PMHx of meningioma, CVA, CABG, hypertension, hyperlipidemia, type 2 diabetes mellitus, who was admitted to [facility] on February 08, 2025 for an evaluation of acute on chronic encephalopathy secondary to cerebral edema with mass effect and meningioma Hospital course: Patient arrived to the ER with a blood pressure of 213/97, heart rate 93/min, temperature 102F, CBC showed WBC 5.2, hemoglobin 13.6, platelet 24, normal coagulation profile, mild hyponatremia sodium 133, normal renal function, lactic acid 1.7, magnesium 1.3, which was repleted, normal liver function, mild alkaline phosphatase elevation, negative Pro-Blas. Urinalysis showed UTI. The patient was given IV fluid bolus, ceftriaxone, IV magnesium, subq insulin, and acetaminophen IV. Head CT showed right frontal mass measuring 27 mm with cerebral edema. ER had tried to transfer patient back to [place] as she was recently discharged from there for similar symptoms, however neurosurgery had recommended palliative care due to poor prognosis and no surgical intervention at the time. Medicine was consulted and patient was admitted for management of cerebral edema. While on the floors, patient was given IV steroids per neurology recommendations, Dr. Thiagarajan. Patient had repeat imaging with MRI which showed again 25 mm mass in the right frontal lobe with mass effect and edema measuring 10 mm. Patient's Magdy Coma Scale continue to deteriorate and was around 6 or 7. ICU was consulted due to concern for patient protecting their airway. Patient continues to get IV steroids which had elevated patient's sugar up into the 400s and patient developed anion gap. After speaking with family who wanted full treatment at the time, patient was then intubated for airway protection and was admitted into the ICU, however no insulin was drip was started and subcu insulin managed patient's sugar levels. Patient's urine culture had resulted into ESBL UTI which was managed with Zosyn. Patient also had EEG done which showed diffuse slowing and abnormal waveforms consistent with abnormal EEG and poor prognosis. Patient was eventually extubated after passing spontaneous breathing trial. After having goals of care discussion with family after patient was downgraded to telemetry, family reiterated full treatment but change patient's CODE STATUS to DNR. After extubation, patient was given NG tube feedings. [facility] neurosurgery accepted the case for further management. Patient is transferred to [facility] on 02/12/2025 and underwent right frontal craniotomy for tumor resection [visual gross total resection, meningioma without high-grade features] on 02/25/2025 and transferred back to our hospital on 03/02/2025. Patient was given steroids as per [facility]'s recommendations. Continued rest of her medications. As patient passed the swallow evaluation, started her on dysphagia pur?ed diet. Patient found to have altered sleep cycle during the hospital stay. Repeat CT scan is done which did not show any significant abnormality.wound care followed the patient throughout the hospital stay. Rest of the hospital course is unremarkable. Patient is to continue steroid taper with dexamethasone 0.5mg PO daily x 4 days. Patient is discharged to nursing facility with the following medications and recommendations 1) Craniotomy and bruising to face: open to air and monitor. [place] to be removed POD 14, 03/11/25. Surgery 02/25/25 -Can get incision wet, Shampoo every day or two. Gently wash with surgery area with warm, soapy water and pat it dry. Do not submerge head in water for 4 weeks 2) [place] redness to coccyx and bilateral heels: allyven dressing, Monitor skin under dressing qshift. Change PRN for falling off. -Follow-up with PCP within 1 week of discharge. If you do not have appointment, please follow-up with [facility] with Dr. Da Silva. Call [phone] to make an appointment. -Recommended to take Dexamethasone 0.5 mg once daily for 4 days, Amlodipine 10mg orally once daily -Hold norco as of now and take tylenol as needed for pain -Recommended to restart plavix on 03/11/2025 -Recommended to stop Amiloride -Continue rest of the home medications as prescribed -Return to ED if symptoms persist or return - Please call [phone] to f/u with [facility] neurosurgery Patient plan of care was discussed with the attending physician, Dr. Nicole Da Silva, PGY1 I, Lyla Rivera DO, attest that I was physically present for the sher portions of the service and evaluated the patient with the resident and I reviewed and discussed the case with the resident and agree with the resident's findings and plans of care as documented above Time Spent with Patient Time attestation: Total time spent providing and/or coordinating discharge services: Time spent: Greater than 30 minutes Exam Vital Signs Temp Pulse Resp BP Pulse Ox O2 Del Method O2 Flow Rate 97.8 F 67 21 H 124/67 98 Room Air 2 03/06/25 12:00 03/06/25 12:03/06/25 12:03/06/25 12:03/06/25 12:03/06/25 12:03/06/25 06:22 Narrative Exam General: Awake. noted echymosis on the face HEENT: Normocephalic, atraumatic, mucous membranes moist. Heart: Regular rate and rhythm, no murmurs. Lungs: Clear to auscultation with no wheezing or crackles. Abdomen: Soft, nondistended, nontender, positive bowel sounds. ?No guarding or rebound tenderness. Neurologic: Alert and oriented x3, no gross neurological deficit, and patient able to move all 4 extremities. noted won on the head and site appears clean and uninfected Extremities: No edema. Skin: No rash or ecchymoses. Discharge Plan Plan Patient Disposition: Xfer Skilled Nsg Fac (SNF) Patient condition on transfer: Stable Care Plan Goals: 1) Craniotomy and bruising to face: open to air and monitor. [place] to be removed POD 14, 03/11/25. Surgery 02/25/25 -Can get incision wet, Shampoo every day or two. Gently wash with surgery area with warm, soapy water and pat it dry. Do not submerge head in water for 4 weeks 2) [place] redness to coccyx and bilateral heels: allyven dressing, Monitor skin under dressing qshift. Change PRN for falling off. -Follow-up with PCP within 1 week of discharge. If you do not have appointment, please follow-up with [facility] with Dr. Da Silva. Call [phone] to make an appointment. -Recommended to take Dexamethasone 0.5 mg once daily for 4 days, Amlodipine 10mg orally once daily -Hold norco as of now and take tylenol as needed for pain -Recommended to restart plavix on 03/11/2025 -Recommended to stop Amiloride -Continue rest of the home medications as prescribed -Return to ED if symptoms persist or return - Please call [phone] to f/u with [facility] neurosurgery Prescriptions/Referrals Prescriptions/Med Rec: New amlodipine 5 mg Tablet 10 mg PO QDAY 30 Days Qty: 30 1RF dexamethasone 0.5 mg tablet 0.5 mg PO QDAY Qty: 4 0RF Rx Instructions: Take 1 tablet in the morning for 4 days clopidogrel 75 mg tablet 75 mg PO QDAY Qty: 30 0RF Rx Instructions: Start taking 1 tablet daily from 03/11/2025 Continued Trulicity 0.75 MG/0.5 ML pen injector 1.5 mg subcut QWEEK Qty: 0 atorvastatin 20 mg Tablet 40 mg PO HS metoprolol tartrate 50 mg Tablet 25 mg PO BID Rx Instructions: half tab po bid. ascorbic acid (vitamin C) [C-500] 500 mg tablet 500 mg PO QDAY captopril 12.5 mg tablet 12.5 mg PO Q8H insulin lispro [Admelog U-100 Insulin lispro] 100 unit/mL solution 1 sliding scale dose subcut USEASDIRECTD lansoprazole 30 mg tablet,disintegrat, delay rel 30 mg PO QDAY levetiracetam [Keppra] 500 mg tablet 500 mg PO BID melatonin 3 mg capsule 3 mg PO HS Galzin 25 mg (zinc) capsule 50 mg PO QDAY Held oxycodone 5 mg tablet 5 mg PO Q4H PRN (Reason: pain) Hold Instructions: Resume on 03/13/25. Until you see your doctor Discontinued clopidogrel [Plavix] 75 MG tablet 75 mg PO QDAY Qty: 0 amiloride-hydrochlorothiazide 5-50 mg Tablet 1 tab PO QDAY dexamethasone 1 mg tablet 1 mg PO BID Rx Instructions: last dose to be 03/10/25 per [facility] amlodipine 5 mg tablet 5 mg PO QDAY Rx Instructions: hold id SBP less than 100 or DBP less than 60 heparin (bovine) 5,000 unit/mL solution 5,000 unit .Route BID Referrals: No Primary/Family,Physician [Primary Care Provider] - Patient/Caregiver Discharge Instructions Education Materials: Diabetes: Caring for Your Body, Medicines for a Brain Tumor, Medicine for Pain, Hypertension Dc Print Language: Swazi Stand Alone Forms: [facility]ainey Award Info., Patient Portal Info Letter Discharge Order Discharge Orders: Discharge (Routine); Ordered 03/06/25 Ordered By: Andrew James Quality Discharge Quality Measures VTE prophylaxis
--- NOTE | 2025-03-06 14:52 | PC.SS ---
Cardiology Nurse (ANGEL) Chloe informed by Dr. Rivera that patient was ready for discharge. SW met with patient's daughters: Jennifer and to discuss discharge plan. SW provided address and phone number to [facility]. SW discussed IMM, no concerns from both daughters. ANGEL proceeded to schedule EMS transportation for 1700. ANGEL notified Ruslan of time for transportation, as well as daughters and clinical liaison, Merary.
== END 2025-03-06 17:13 | disposition other institution (70) | DRG 54 ==
PROVIDERS: Admitting Provider Student in an Organized Health Care Education/Training Program; Visit Provider Internal Medicine
DX: D32.9 Benign neoplasm of meninges, unspecified (principal); G93.6 Cerebral edema; E87.1 Hypo-osmolality and hyponatremia; N39.0 Urinary tract infection, site not specified; Z16.12 Extended spectrum beta lactamase (ESBL) resistance; E78.5 Hyperlipidemia, unspecified; I10 Essential (primary) hypertension; E11.9 Type 2 diabetes mellitus without complications; I25.10 Atherosclerotic heart disease of native coronary artery without angina pectoris; E87.6 Hypokalemia; S00.83XA Contusion of other part of head, initial encounter; Z86.73 Personal history of transient ischemic attack (TIA), and cerebral infarction without residual deficits; Z66 Do not resuscitate; Z95.1 Presence of aortocoronary bypass graft; Z79.02 Long term (current) use of antithrombotics/antiplatelets; Z79.84 Long term (current) use of oral hypoglycemic drugs; Z79.899 Other long term (current) drug therapy
CPT/HCPCS: 36415; 36600; 70450; 80053; 81001; 82803; 83735; 85025; 87081; 92526; 92610; 97162; J0131; J0360; J1100; J1171; J1644; J1815; J3475; J3480; J3490; J8540; A9270; J1920